=== PATIENT | male | born 1975 | race Hispanic/Latino ===

== ENCOUNTER 2016-09-20 16:53 | Inpatient (IN) | payer MEDICAID ==
[2016-09-20] MEDS ORDERED: Sodium Chloride 0.9% 1,000 ML IV STA (17:10)
--- NOTE | 2016-09-20 17:13 | ED PDOC ---
HPI: Abdomen Time Seen by Provider: 09/20/16 16:59 Chief Complaint (Nursing): Abdominal Pain Chief Complaint (Provider): Abdominal Pain History Per: Patient History/Exam Limitations: no limitations Onset/Duration Of Symptoms: Days (x5 days) Current Symptoms Are (Timing): Still Present Additional Complaint(s): 40 y/o male with a past medical history of alcohol abuse and pancreatitis who presents to the emergency department via EMS with a complaint of an abdominal pain and vomiting "black stuff" x5 days. States he rather than to get treated. Admits to drinking about 2 hours prior to arrival. Denies diarrhea. PMD: Dr. Mayra Zamora MD Past Medical History Reviewed: Historical Data, Nursing Documentation, Vital Signs Vital Signs: Last Vital Signs Temp 98.2 F 09/20/16 16:54 Pulse 100 H 09/20/16 16:54 Resp 16 09/20/16 16:54 BP 132/104 H 09/20/16 16:54 Pulse Ox 100 09/20/16 19:16 - Medical History PMH: Arthritis (as per CT results), HTN, Pancreatitis Denies: COPD, Chronic Kidney Disease - Family History Family History: States: Unknown Family Hx - Social History Alcohol: > 2 Drinks/Day - Home Medications Home Medications: Ambulatory Orders Medication Instructions Recorded Alprazolam [Xanax] 0.5 mg PO TID PRN 09/20/16 Mirtazapine [Remeron] 15 mg PO HS 09/20/16 Multivitamin [Multi-Vitamin Daily] 1 tab PO DAILY 09/20/16 - Allergies Allergies/Adverse Reactions: Allergies Allergy/AdvReac Type Severity Reaction Status Date / Time No Known Allergies Allergy Verified 01/16/15 12:38 Review of Systems ROS Statement: Except As Marked, All Systems Reviewed And Found Negative Gastrointestinal: Positive for: Vomiting ("Black stuff"), Abdominal Pain. Negative for: Diarrhea Physical Exam - Reviewed Nursing Documentation Reviewed: Yes Vital Signs Reviewed: Yes - Physical Exam Appears: Positive for: Non-toxic, No Acute Distress Head Exam: Positive for: ATRAUMATIC, NORMAL INSPECTION, NORMOCEPHALIC Skin: Positive for: Normal Color, Warm, Dry Gastrointestinal/Abdominal: Positive for: Soft, Tenderness (Epigastric ). Negative for: Normal Exam Extremity: Positive for: Normal ROM. Negative for: Pedal Edema Neurologic/Psych: Positive for: Alert, Oriented - Laboratory Results Result Diagrams: 09/20/16 17:25 09/20/16 17:25 - ECG Interpretation Of ECG: NSR @ 91, no ST-T changes. O2 Sat by Pulse Oximetry: 100 (RA) Pulse Ox Interpretation: Normal - Radiology X-Ray: Interpreted by [facility] X-Ray Interpretation: No Acute Disease Medical Decision Making Medical Decision Making: Time:17:10 Initial impression: Abdominal Pain Initial plan: --Abd & Pelvis IV Contrast CT --Alcohol Serum STAT --EKG --COMP Metabolic Panel --Drug Screen, Urine --Lipase --ED Urine Dipstick --EKG-ED --CBC w. differential --Partial Thromboplastin Time --Prothrombin Time --Sodium Chloride 1,000 ml IV 1,000 mls/hr --Urinalysis STAT --Reevaluation Time: 17:25 --Alcohol, Quantitative: 292 --Lipase levels are high: 1026 Time: 17:33 --Pantoprazole 40 mg IV Time: 18:00 --Lactated Ringer's 1,000 ml IV 1,000 mls/hr --Morphine 4 mg IV --VBG Time: 18:42 --Abdomen/pelvis CT FINDINGS: LOWER THORAX: No evidence of acute pathology at the lung bases. No evidence of pleural effusion. LIVER: Brud-is-frehwxoo hepatomegaly is again noted. Moderate diffuse low-attenuation of the liver is again noted suggestive of moderate hepatic steatosis. Interval appearance of low-attenuation lesion at the right liver lobe adjacent to gallbladder fossa measures 2.6 centimeter since the previous exam. Although this may represent focal fatty infiltration or sparing other etiology included liver mass should be excluded. GALLBLADDER AND BILE DUCTS: Distended gallbladder contains small gallstones without CT evidence of acute cholecystitis. PANCREAS: Inflammatory changes surrounding the pancreatic body and tail suggestive of acute pancreatitis. The main pancreatic duct is not dilated. SPLEEN: Unremarkable. ADRENALS: Unremarkable. No mass. KIDNEYS AND URETERS: Unremarkable. No hydronephrosis. No solid mass. VASCULATURE: Unremarkable. No aortic aneurysm. BOWEL: Unremarkable. No obstruction. No gross mural thickening. Colonic diverticulosis are again seen without evidence of diverticulitis. APPENDIX: Normal appendix. PERITONEUM: Unremarkable. No free fluid. No free air. LYMPH NODES: Unremarkable. No enlarged lymph nodes. BLADDER: Unremarkable. REPRODUCTIVE: Unremarkable. BONES: No acute fracture. OTHER FINDINGS: Inflammatory changes surrounding the pancreatic body and tail consistent with acute pancreatitis. Mildly distended gallbladder contains gallstones without CT evidence of acute cholecystitis. Moderate hepatic steatosis. Interval appearance of 2.6 centimeter lesion at the right liver lobe adjacent to the gallbladder fossa best seen on image 60 series 3. Further assessment of the liver by MRI is suggested to exclude liver mass. Otherwise no significant interval change since the previous study dated 2015. IMPRESSION: Unremarkable contrast enhanced CT of the abdomen and pelvis. Time: 18:50 --Chest Portable (RAD) Scribe Attestation: Documented by Rosy Atkins, acting as a scribe for Chio Liz MD. Provider Scribe Attestation: All medical record entries made by the Scribe were at my direction and personally dictated by me. I have reviewed the chart and agree that the record accurately reflects my personal performance of the history, physical exam, medical decision making, and the department course for this patient. I have also personally directed, reviewed, and agree with the discharge instructions and disposition. Disposition - Clinical Impression Clinical Impression: Pancreatitis, alcoholic, acute, Alcohol intoxication - Patient ED Disposition Is Patient to be Admitted: Yes - Disposition Disposition Time: 19:33 Condition: STABLE - Pt Status Changed To: Hospital Disposition Of: Inpatient - Admit Certification Admit to Inpatient:: After my assessment, the patient will require hospitalization for at least two midnights. This is because of the severity of symptoms shown, intensity of services needed, and/or the medical risk in this patient being treated as an outpatient. - POA Present On Arrival: None
[2016-09-20 17:30] LABS: BASO # 0.1 K/uL (0.0-0.2); BASO % 1.2 % (0.0-2.0); EOS # 0.1 K/uL (0.0-0.7); HEMOGLOBIN 15.4 g/dL (12.0-18.0); LYMPH # 2.9 K/uL (1.0-4.3); LYMPH % 23.5 % (20.0-40.0); MEAN CELL VOLUME 97.2 fl (80.0-94.0); MEAN CORPUSCULAR HEMOGLOBIN 34.1 pg (27.0-31.0); MEAN CORPUSCULAR HGB CONC 35.1 g/dL (33.0-37.0); MEAN PLATELET VOLUME 8.4 fl (7.2-11.7); MONO % 8.2 % (0.0-10.0); NEUT # 8.2 K/uL (1.8-7.0); NEUT % 66.1 % (50.0-75.0); NRBC % 0.1 % (0.0-0.0); RBC 4.53 Mil/uL (4.40-5.90); RED CELL DISTRIBUTION WIDTH 13.6 % (11.5-14.5); WHITE BLOOD COUNT 12.3 K/uL (4.8-10.8)
[2016-09-20 17:48] LABS: ALB/GLOB RATIO 1.1 (1.0-2.1); ALBUMIN 4.8 g/dL (3.5-5.0); ALT/SGPT 100 U/L (21-72); AST/SGOT 134 U/L (17-59); BLOOD UREA NITROGEN 6 mg/dl (9-20); CALCIUM 8.9 mg/dL (8.4-10.2); GFR AFRICAN-AMERICAN > 60; GFR NON-AFRICAN AMERICAN > 60; LIPASE 1026 U/L (23-300)
[2016-09-20] MEDS ORDERED: Sterile Water 10 ML IV ONE (17:49)
[2016-09-20] MEDS: Lactated Ringer's 1,000 ML IV SCH ×2 (18:01→23:11)
[2016-09-20] MEDS ORDERED: Morphine 4 MG/ML VIAL IV STA (18:01)
[2016-09-20 18:05] LABS: INR 1.1 (0.9-1.2); PROTHROMBIN TIME 12.2 Seconds (9.8-13.1)
[2016-09-20] MEDS ORDERED: Iohexol 300 100 ML IJ ONE (18:10)
[2016-09-20] MEDS ORDERED: Sodium Chloride 0.9% 50 ML IV ONE (18:10)
--- NOTE | 2016-09-20 19:06 | CT ---
PROCEDURE: CT Abdomen and Pelvis with contrast HISTORY: Abd pain, vomiting COMPARISON: Comparison is made to the previous study dated 11/07/2015 TECHNIQUE: Contrast dose: 95 mL of Omnipaque 300. Axial and reformatted true coronal and sagittal CT images of the abdomen and pelvis were obtained after IV contrast administration. Radiation dose: Total exam DLP = 1061.07 mGy-cm. This CT exam was performed using one or more of the following dose reduction techniques: Automated exposure control, adjustment of the mA and/or kV according to patient size, and/or use of iterative reconstruction technique. FINDINGS: LOWER THORAX: No evidence of acute pathology at the lung bases. No evidence of pleural effusion. LIVER: [id number] hepatomegaly is again noted. Moderate diffuse low-attenuation of the liver is again noted suggestive of moderate hepatic steatosis. Interval appearance of low-attenuation lesion at the right liver lobe adjacent to gallbladder fossa measures 2.6 centimeter since the previous exam. Although this may represent focal fatty infiltration or sparing other etiology included liver mass should be excluded. GALLBLADDER AND BILE DUCTS: Distended gallbladder contains small gallstones without CT evidence of acute cholecystitis. PANCREAS: Inflammatory changes surrounding the pancreatic body and tail suggestive of acute pancreatitis. The main pancreatic duct is not dilated. SPLEEN: Unremarkable. ADRENALS: Unremarkable. No mass. KIDNEYS AND URETERS: Unremarkable. No hydronephrosis. No solid mass. VASCULATURE: Unremarkable. No aortic aneurysm. BOWEL: Unremarkable. No obstruction. No gross mural thickening. Colonic diverticulosis are again seen without evidence of diverticulitis. APPENDIX: Normal appendix. PERITONEUM: Unremarkable. No free fluid. No free air. LYMPH NODES: Unremarkable. No enlarged lymph nodes. BLADDER: Unremarkable. REPRODUCTIVE: Unremarkable. BONES: No acute fracture. OTHER FINDINGS: Inflammatory changes surrounding the pancreatic body and tail consistent with acute pancreatitis. Mildly distended gallbladder contains gallstones without CT evidence of acute cholecystitis. Moderate hepatic steatosis. Interval appearance of 2.6 centimeter lesion at the right liver lobe adjacent to the gallbladder fossa best seen on image 60 series 3. Further assessment of the liver by MRI is suggested to exclude liver mass. Otherwise no significant interval change since the previous study dated 11/07/2015. IMPRESSION: Unremarkable contrast enhanced CT of the abdomen and pelvis.
[2016-09-20] MEDS ORDERED: Lactated Ringer's 1,000 ML IV SCH (19:30)
[2016-09-20 19:35] LABS: VENOUS BLOOD GAS PCO2 36 mmHg (40-60); VENOUS BLOOD GAS PO2 110 mm/Hg (30-55)
[2016-09-20 20:41] LABS: SQUAMOUS EPITHIAL 1 /hpf (0-5); URINE BILIRUBIN NEGATIVE (NEGATIVE); URINE BLOOD SMALL (NEGATIVE); URINE CLARITY CLEAR (Clear); URINE COLOR YELLOW (YELLOW); URINE GLUCOSE (UA) NEG (Normal); URINE LEUKOCYTE ESTERASE NEG Leu/uL (Negative); URINE NITRATE NEGATIVE (NEGATIVE); URINE PROTEIN NEGATIVE (NEGATIVE); URINE UROBILINOGEN 0.2-1.0 mg/dL (0.2-1.0)
[2016-09-20 21:03] LABS: BARBITURATES, UR NEGATIVE (NEGATIVE); BENZODIAZEPINES, UR NEGATIVE (NEGATIVE); OPIATES, UR POSITIVE (NEGATIVE); PHENCYCLIDINE, UR NEGATIVE (NEGATIVE)
[2016-09-20] MEDS: Morphine 4 MG/ML VIAL IVP PRN (22:57)
[2016-09-21] MEDS ORDERED: Morphine 4 MG/ML VIAL IVP SCH (01:00)
[2016-09-21 05:27] LABS: HEMOGLOBIN 14.5 g/dL (12.0-18.0); MEAN CELL VOLUME 97.4 fl (80.0-94.0); MEAN CORPUSCULAR HEMOGLOBIN 34.1 pg (27.0-31.0); RBC 4.25 Mil/uL (4.40-5.90); RED CELL DISTRIBUTION WIDTH 13.5 % (11.5-14.5); WHITE BLOOD COUNT 11.3 K/uL (4.8-10.8)
[2016-09-21 05:30] LABS: ALB/GLOB RATIO 1.2 (1.0-2.1); ALBUMIN 4.5 g/dL (3.5-5.0); ALT/SGPT 85 U/L (21-72); AMYLASE 105 U/L (30-110); AST/SGOT 112 U/L (17-59); BLOOD UREA NITROGEN 4 mg/dl (9-20); CALCIUM 8.6 mg/dL (8.4-10.2); GFR AFRICAN-AMERICAN > 60; GFR NON-AFRICAN AMERICAN > 60; HDL CHOLESTEROL 44 MG/DL (30-70); LIPASE 833 U/L (23-300)
[2016-09-21 05:40] LABS: LDL CHOLESTEROL 181 mg/dL (0-129)
[2016-09-21 05:44] LABS: T4 8.51 ug/dl (5.5-11.0)
[2016-09-21] MEDS: Morphine 4 MG/ML VIAL IVP PRN ×5 (06:48→23:53)
--- NOTE | 2016-09-21 08:11 | CARD ---
APPROVED REPORT EKG Measurement Heart [id number] <Conclusion> Normal sinus rhythm Normal ECG
[2016-09-21] MEDS: Thiamine 100 mg/ml Inj IM SCH (08:43)
--- NOTE | 2016-09-21 10:43 | RAD ---
HISTORY: Abdominal pain COMPARISON: 11/07/2015. FINDINGS: LUNGS: The lungs are well inflated and clear. PLEURA: No significant pleural effusion identified, no pneumothorax apparent. CARDIOVASCULAR: Normal. OSSEOUS STRUCTURES: No significant abnormalities. VISUALIZED UPPER ABDOMEN: Normal. OTHER FINDINGS: None. IMPRESSION: No active pulmonary disease.
[2016-09-21] MEDS ORDERED: Lactated Ringer's 1,000 ML IV SCH ×3 (12:30→21:00)
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
[2016-09-21 17:06] VITALS: BMI 37.1
[2016-09-21] MEDS: Lactated Ringer's 1,000 ML IV SCH ×2 (21:25→21:28)
[2016-09-22] MEDS ORDERED: Lactated Ringer's 1,000 ML IV SCH
[2016-09-22] MEDS: Lactated Ringer's 1,000 ML IV SCH ×7 (00:46→21:58)
[2016-09-22] MEDS: Morphine 4 MG/ML VIAL IVP PRN ×5 (04:06→23:39)
[2016-09-22 07:16] LABS: HEMOGLOBIN 14.5 g/dL (12.0-18.0); MEAN CELL VOLUME 97.8 fl (80.0-94.0); MEAN CORPUSCULAR HEMOGLOBIN 34.2 pg (27.0-31.0); RBC 4.23 Mil/uL (4.40-5.90); RED CELL DISTRIBUTION WIDTH 13.7 % (11.5-14.5); WHITE BLOOD COUNT 9.2 K/uL (4.8-10.8)
[2016-09-22 07:40] LABS: BLOOD UREA NITROGEN 5 mg/dl (9-20); CALCIUM 9.1 mg/dL (8.4-10.2); GFR AFRICAN-AMERICAN > 60; GFR NON-AFRICAN AMERICAN > 60; LIPASE 214 U/L (23-300); MAGNESIUM 1.4 MG/DL (1.6-2.3)
[2016-09-22] MEDS: Thiamine 100 mg/ml Inj IM SCH (08:36)
--- NOTE | 2016-09-22 11:46 | CP.PCM.PN ---
Subjective - Date & Time of Evaluation Date of Evaluation: 09/22/16 Time of Evaluation: 11:30 - Subjective Subjective: less pain Objective - Vital Signs/Intake and Output Vital Signs (last 24 hours): Temp Pulse Resp BP Pulse Ox 98.4 F 80 20 132/86 95 09/22/16 08:35 09/22/16 08:35 09/22/16 08:35 09/22/16 08:35 09/22/16 08:35 - Medications Medications: Current Medications Lactated Ringer's (Lactated Ringer's) 1,000 mls @ 250 mls/hr IV .Q4H MARY Lorazepam (Ativan) 1 mg IVP Q4 PRN PRN Reason: Agitation Last Admin: 09/21/16 17:06 Dose: 1 mg Morphine Sulfate (Morphine) 4 mg IVP Q3 PRN PRN Reason: Pain, moderate (4-7) Last Admin: 09/22/16 11:30 Dose: 4 mg Ondansetron HCl (Zofran Inj) 4 mg IVP Q6 PRN PRN Reason: Nausea/Vomiting Last Admin: 09/22/16 01:50 Dose: 4 mg Pantoprazole Sodium (Protonix Inj) 40 mg IVP DAILY [facility] Last Admin: 09/22/16 08:36 Dose: 40 mg Thiamine HCl (Vitamin B1 Inj) 100 mg IM DAILY [facility] Last Admin: 09/22/16 08:36 Dose: 100 mg - Labs Labs: 09/22/16 05:30 09/22/16 05:30 PT 12.2 Seconds (9.8-13.1) 09/20/16 17:25 INR 1.1 (0.9-1.2) 09/20/16 17:25 APTT 40.0 Seconds (25.6-37.1) H 09/20/16 17:25 Assessment and Plan - Assessment and Plan (Free Text) Assessment: 40 yo male with alcoholic pancreatitis fluids pain control dc planning when able
[2016-09-22] MEDS: HYDROmorphone 0.5 mg/0.5 ml ISec IVP PRN ×2 (14:35→20:18)
--- NOTE | 2016-09-22 15:29 | CT ---
PROCEDURE: CT HEAD WITHOUT CONTRAST. HISTORY: headache/ dizziness COMPARISON: Comparison is made to the previous study dated 01/16/2015 TECHNIQUE: Axial computed tomography images were obtained through the head/brain without intravenous contrast. Radiation dose: Total exam DLP = 873.8 mGy-cm. This CT exam was performed using one or more of the following dose reduction techniques: Automated exposure control, adjustment of the mA and/or kV according to patient size, and/or use of iterative reconstruction technique. FINDINGS: HEMORRHAGE: No intracranial hemorrhage. BRAIN: No mass effect or edema. No atrophy or chronic microvascular ischemic changes. VENTRICLES: Again seen is either focal [place] pilot lesion of the left lateral ventricle versus a cyst to the left of the midline seen superior and to the left of the pineal gland calcification measures 2.4 x 1.2 centimeter. No hydrocephalus. CALVARIUM: Unremarkable. PARANASAL SINUSES: Unremarkable as visualized. No significant inflammatory changes. MASTOID AIR CELLS: Unremarkable as visualized. No inflammatory changes. OTHER FINDINGS: None. IMPRESSION: No evidence of acute intracranial hemorrhage intracranial collection or midline shift. No significant interval change when compared to the previous study dated 01/16/2015. Re- demonstration of either focal dilatation of the left lateral ventricle versus less likely cystic formation to the left of the midline superior and to the left of the pineal gland which has not significantly changed since the previous exam. If clinically warranted further assessment by MRI may be obtained.
--- NOTE | 2016-09-22 15:49 | CP.PCM.PN ---
Subjective - Date & Time of Evaluation Date of Evaluation: 09/22/16 Time of Evaluation: 11:30 - Subjective Subjective: F/U Acute Pancreatitis. Abdominal pain improved, upgrade to clear diet today. Objective - Vital Signs/Intake and Output Vital Signs (last 24 hours): Temp Pulse Resp BP Pulse Ox 98.4 F 80 20 132/86 95 09/22/16 08:35 09/22/16 08:35 09/22/16 08:35 09/22/16 08:35 09/22/16 08:35 - Medications Medications: Current Medications Hydromorphone HCl (Dilaudid) 0.5 mg IVP Q4 PRN PRN Reason: Pain, severe (8-10) Stop: 09/24/16 14:18 Last Admin: 09/22/16 14:35 Dose: 0.5 mg Lactated Ringer's (Lactated Ringer's) 1,000 mls @ 250 mls/hr IV .Q4H [facility] Lactulose (Enulose) 10 gm PO DAILY PRN PRN Reason: Constipation Lorazepam (Ativan) 1 mg IVP Q4 PRN PRN Reason: Agitation Last Admin: 09/21/16 17:06 Dose: 1 mg Morphine Sulfate (Morphine) 4 mg IVP Q3 PRN PRN Reason: Pain, moderate (4-7) Last Admin: 09/22/16 11:30 Dose: 4 mg Ondansetron HCl (Zofran Inj) 4 mg IVP Q6 PRN PRN Reason: Nausea/Vomiting Last Admin: 09/22/16 14:11 Dose: 4 mg Pantoprazole Sodium (Protonix Inj) 40 mg IVP DAILY [facility] Last Admin: 09/22/16 08:36 Dose: 40 mg Thiamine HCl (Vitamin B1 Inj) 100 mg IM DAILY [facility] Last Admin: 09/22/16 08:36 Dose: 100 mg - Labs Labs: 09/22/16 05:30 09/22/16 05:30 PT 12.2 Seconds (9.8-13.1) 09/20/16 17:25 INR 1.1 (0.9-1.2) 09/20/16 17:25 APTT 40.0 Seconds (25.6-37.1) H 09/20/16 17:25 - Constitutional Appears: No Acute Distress - Head Exam Head Exam: NORMAL INSPECTION - Eye Exam Eye Exam: PERRL - ENT Exam ENT Exam: Normal Oropharynx - Neck Exam Neck Exam: Normal Inspection - Respiratory Exam Respiratory Exam: NORMAL BREATHING PATTERN - Cardiovascular Exam Cardiovascular Exam: REGULAR RHYTHM - GI/Abdominal Exam GI & Abdominal Exam: Tenderness (epigastric area), Normal Bowel Sounds - Extremities Exam Extremities Exam: Pedal Edema - Back Exam Back Exam: NORMAL INSPECTION - Neurological Exam Neurological Exam: Alert, Oriented x3. absent: Motor Sensory Deficit - Psychiatric Exam Psychiatric exam: Normal Mood - Skin Skin Exam: Normal Color, Warm Assessment and Plan (1) Pancreatitis, alcoholic, acute Status: Acute (2) Alcohol intoxication Status: Acute - Assessment and Plan (Free Text) Plan: Continue IV fluid, Dilaudid, Morphine and rest of Tx.
[2016-09-23] MEDS: Lactated Ringer's 1,000 ML IV SCH ×7 (00:11→23:25)
[2016-09-23] MEDS: HYDROmorphone 0.5 mg/0.5 ml ISec IVP PRN ×2 (02:04→06:16)
[2016-09-23 07:57] LABS: ALB/GLOB RATIO 1.1 (1.0-2.1); ALBUMIN 4.2 g/dL (3.5-5.0); ALT/SGPT 114 U/L (21-72); AST/SGOT 168 U/L (17-59); BLOOD UREA NITROGEN 7 mg/dl (9-20); CALCIUM 9.2 mg/dL (8.4-10.2); GFR AFRICAN-AMERICAN > 60; GFR NON-AFRICAN AMERICAN > 60
[2016-09-23 07:59] LABS: HEMOGLOBIN 14.2 g/dL (12.0-18.0); MEAN CELL VOLUME 98.4 fl (80.0-94.0); MEAN CORPUSCULAR HEMOGLOBIN 34.3 pg (27.0-31.0); MEAN CORPUSCULAR HGB CONC 34.8 g/dL (33.0-37.0); RBC 4.15 Mil/uL (4.40-5.90); RED CELL DISTRIBUTION WIDTH 13.4 % (11.5-14.5); WHITE BLOOD COUNT 9.5 K/uL (4.8-10.8)
[2016-09-23] MEDS: Thiamine 100 mg/ml Inj IM SCH (09:25)
[2016-09-23] MEDS: Morphine 4 MG/ML VIAL IVP PRN ×2 (09:31→15:20)
[2016-09-23] MEDS ORDERED: Lactulose 10 gm/15 ml Syrup PO PRN (11:00)
--- NOTE | 2016-09-23 12:24 | US ---
HISTORY: elevated LFT, abd pain COMPARISON: CT abdomen and pelvis with contrast performed 09/20/16 TECHNIQUE: Sonographic evaluation of the abdomen. FINDINGS: LIVER: Measures 23.6 cm in sagittal dimension. Echogenic liver may be seen in setting of hepatic parenchymal disease or fatty infiltration. No focal hepatic mass identified. The main portal vein appears patent with normal directional flow. No intrahepatic bile duct dilatation. GALLBLADDER: 5 mm gallstone, mobile. No gallbladder wall thickening. Negative sonographic Dolan's sign as assessed by the mother helper. COMMON BILE DUCT: Measures 4 mm. PANCREAS: Not well visualized ; appears somewhat hypoechoic. RIGHT KIDNEY: Measures 11.5 x 4.7 x 5.2 cm. No obstructing calculus or hydronephrosis identified. LEFT KIDNEY: Measures 12.0 x 5.2 x 4.7 cm. No obstructing calculus or hydronephrosis identified. SPLEEN: Measures approximately 11.2 cm. AORTA: Not well-visualized. IVC: Not well-visualized. OTHER FINDINGS: None. IMPRESSION: Immobile gallstone within the gallbladder. Echogenic liver may be seen in setting of hepatic parenchymal disease or fatty infiltration. The pancreas is not well visualized; appears somewhat hypoechoic. Please refer to CT abdomen and pelvis with contrast performed 09/20/16 for more detailed evaluation. The aorta and IVC are not well-visualized markedly limited secondary to bowel gas and habitus.
[2016-09-23] MEDS ORDERED: DiphenhydrAMINE 50 mg/ml Inj IVP ONE (12:45)
--- NOTE | 2016-09-23 21:39 | CP.PCM.PN ---
Subjective - Date & Time of Evaluation Date of Evaluation: 09/23/16 Time of Evaluation: 13:20 - Subjective Subjective: F/U Pancreatitis. abdominal pain improved Objective - Vital Signs/Intake and Output Vital Signs (last 24 hours): Temp Pulse Resp BP Pulse Ox 98.2 F 78 17 138/87 93 L 09/23/16 16:42 09/23/16 16:42 09/23/16 16:42 09/23/16 16:42 09/23/16 16:42 Intake and Output: 09/23/16 09/24/16 18:59 06:59 Intake Total 2000 Output Total 1200 Balance 800 - Medications Medications: Current Medications Diphenhydramine HCl (Benadryl) 25 mg PO Q8 PRN PRN Reason: Itching / Pruritus Hydromorphone HCl (Dilaudid) 0.5 mg IVP Q4 PRN PRN Reason: Pain, severe (8-10) Stop: 09/24/16 14:18 Last Admin: 09/23/16 06:16 Dose: 0.5 mg Lactated Ringer's (Lactated Ringer's) 1,000 mls @ 250 mls/hr IV .Q4H [facility] Last Admin: 09/23/16 19:32 Dose: Not Given Lactulose (Enulose) 10 gm PO DAILY PRN PRN Reason: Constipation Lorazepam (Ativan) 1 mg IVP Q4 PRN PRN Reason: Agitation Last Admin: 09/21/16 17:06 Dose: 1 mg Morphine Sulfate (Morphine) 4 mg IVP Q3 PRN PRN Reason: Pain, moderate (4-7) Last Admin: 09/23/16 15:20 Dose: 4 mg Ondansetron HCl (Zofran Inj) 4 mg IVP Q6 PRN PRN Reason: Nausea/Vomiting Last Admin: 09/22/16 14:11 Dose: 4 mg Pantoprazole Sodium (Protonix Inj) 40 mg IVP DAILY [facility] Last Admin: 09/23/16 09:25 Dose: 40 mg Thiamine HCl (Vitamin B1 Inj) 100 mg IM DAILY [facility] Last Admin: 09/23/16 09:25 Dose: 100 mg - Labs Labs: 09/23/16 05:30 09/23/16 05:30 PT 12.2 Seconds (9.8-13.1) 07/12/17 17:25 INR 1.1 (0.9-1.2) 09/20/16 17:25 APTT 40.0 Seconds (25.6-37.1) H 09/20/16 17:25 - Constitutional Appears: No Acute Distress - Head Exam Head Exam: NORMAL INSPECTION - Eye Exam Eye Exam: PERRL - ENT Exam ENT Exam: Normal Oropharynx - Neck Exam Neck Exam: Normal Inspection - Respiratory Exam Respiratory Exam: NORMAL BREATHING PATTERN - Cardiovascular Exam Cardiovascular Exam: REGULAR RHYTHM - GI/Abdominal Exam GI & Abdominal Exam: Tenderness (epigastric area, upper quadrants ,mild guarding , no rebound), Normal Bowel Sounds - Extremities Exam Extremities Exam: Pedal Edema - Back Exam Back Exam: NORMAL INSPECTION - Neurological Exam Neurological Exam: Alert, Oriented x3. absent: Motor Sensory Deficit - Psychiatric Exam Psychiatric exam: Normal Mood - Skin Skin Exam: Normal Color, Warm Assessment and Plan (1) Pancreatitis, alcoholic, acute Status: Acute (2) Alcohol intoxication Status: Acute - Assessment and Plan (Free Text) Plan: Continue Morphine , IVF , Thiamine and rest of treatment
[2016-09-24] MEDS: HYDROmorphone 0.5 mg/0.5 ml ISec IVP PRN ×3 (02:53→14:45)
[2016-09-24] MEDS: Lactated Ringer's 1,000 ML IV SCH ×5 (04:24→20:25)
[2016-09-24] MEDS: Thiamine 100 mg/ml Inj IM SCH (08:19)
--- NOTE | 2016-09-24 16:25 | CP.PCM.PN ---
Subjective - Date & Time of Evaluation Date of Evaluation: 09/24/16 Time of Evaluation: 15:20 - Subjective Subjective: F/U Pancreatitis. Abdominal pain improved , still requesting pain medication Objective - Vital Signs/Intake and Output Vital Signs (last 24 hours): Temp Pulse Resp BP Pulse Ox 98.0 F 75 17 132/87 95 09/24/16 15:40 09/24/16 15:40 09/24/16 15:40 09/24/16 15:40 09/24/16 15:40 - Medications Medications: Current Medications Diphenhydramine HCl (Benadryl) 25 mg PO Q8 PRN PRN Reason: Itching / Pruritus Hydromorphone HCl (Dilaudid) 0.5 mg IVP Q4 PRN PRN Reason: Pain, severe (8-10) Last Admin: 09/24/16 14:45 Dose: 0.5 mg Lactated Ringer's (Lactated Ringer's) 1,000 mls @ 250 mls/hr IV .Q4H [facility] Last Admin: 09/24/16 15:30 Dose: 250 mls/hr Lactulose (Enulose) 10 gm PO DAILY PRN PRN Reason: Constipation Lorazepam (Ativan) 1 mg IVP Q4 PRN PRN Reason: Agitation Last Admin: 09/24/16 04:16 Dose: 1 mg Morphine Sulfate (Morphine) 4 mg IVP Q3 PRN PRN Reason: Pain, moderate (4-7) Last Admin: 09/23/16 15:20 Dose: 4 mg Ondansetron HCl (Zofran Inj) 4 mg IVP Q6 PRN PRN Reason: Nausea/Vomiting Last Admin: 09/22/16 14:11 Dose: 4 mg Pantoprazole Sodium (Protonix Inj) 40 mg IVP DAILY [facility] Last Admin: 09/24/16 08:19 Dose: 40 mg Thiamine HCl (Vitamin B1 Inj) 100 mg IM DAILY [facility] Last Admin: 09/24/16 08:19 Dose: 100 mg - Labs Labs: 09/23/16 05:30 09/23/16 05:30 PT 12.2 Seconds (9.8-13.1) 09/20/16 17:25 INR 1.1 (0.9-1.2) 09/20/16 17:25 APTT 40.0 Seconds (25.6-37.1) H 09/20/16 17:25 - Constitutional Appears: No Acute Distress - Head Exam Head Exam: NORMAL INSPECTION - Eye Exam Eye Exam: PERRL - ENT Exam ENT Exam: Normal Oropharynx - Neck Exam Neck Exam: Normal Inspection - Respiratory Exam Respiratory Exam: NORMAL BREATHING PATTERN - Cardiovascular Exam Cardiovascular Exam: REGULAR RHYTHM - GI/Abdominal Exam GI & Abdominal Exam: Soft, Tenderness (minimal in Epigastric area, upper qudrants ), Normal Bowel Sounds. absent: Guarding, Rebound - Extremities Exam Extremities Exam: Pedal Edema - Back Exam Back Exam: NORMAL INSPECTION - Neurological Exam Neurological Exam: Alert, Oriented x3. absent: Motor Sensory Deficit - Psychiatric Exam Psychiatric exam: Normal Mood - Skin Skin Exam: Warm Assessment and Plan (1) Pancreatitis, alcoholic, acute Status: Acute (2) Alcohol intoxication Status: Acute - Assessment and Plan (Free Text) Plan: full liquid diet, increase in am to soft diet as tolerated , continue Mophine and rest of treatment
[2016-09-24] MEDS: Morphine 4 MG/ML VIAL IVP PRN (18:48)
[2016-09-25] MEDS: HYDROmorphone 0.5 mg/0.5 ml ISec IVP PRN ×3 (01:31→10:57)
[2016-09-25] MEDS: Lactated Ringer's 1,000 ML IV SCH ×7 (04:15→23:43)
[2016-09-25] MEDS: Thiamine 100 mg/ml Inj IM SCH (08:31)
--- NOTE | 2016-09-25 14:04 | CP.PCM.PN ---
Subjective - Date & Time of Evaluation Date of Evaluation: 09/24/16 Time of Evaluation: 15:00 - Subjective Subjective: doing better Objective - Vital Signs/Intake and Output Vital Signs (last 24 hours): Temp Pulse Resp BP Pulse Ox 98.5 F 69 18 129/86 97 09/25/16 07:48 09/25/16 07:48 09/25/16 07:48 09/25/16 07:48 09/25/16 07:48 - Medications Medications: Current Medications Diphenhydramine HCl (Benadryl) 25 mg PO Q8 PRN PRN Reason: Itching / Pruritus Lactated Ringer's (Lactated Ringer's) 1,000 mls @ 250 mls/hr IV .Q4H [facility] Last Admin: 09/25/16 13:18 Dose: Not Given Lactulose (Enulose) 10 gm PO DAILY PRN PRN Reason: Constipation Lorazepam (Ativan) 1 mg IVP Q4 PRN PRN Reason: Agitation Last Admin: 09/25/16 02:59 Dose: 1 mg Ondansetron HCl (Zofran Inj) 4 mg IVP Q6 PRN PRN Reason: Nausea/Vomiting Last Admin: 09/22/16 14:11 Dose: 4 mg Oxycodone/Acetaminophen (Percocet 5/325 Mg Tab) 1 tab PO Q4 PRN PRN Reason: Pain, moderate (4-7) Stop: 09/28/16 12:45 Pantoprazole Sodium (Protonix Ec Tab) 40 mg PO DAILY [facility] Thiamine HCl (Vitamin B1 Tab) 100 mg PO DAILY [facility] - Labs Labs: 09/23/16 05:30 09/23/16 05:30 PT 12.2 Seconds (9.8-13.1) 09/20/16 17:25 INR 1.1 (0.9-1.2) 09/20/16 17:25 APTT 40.0 Seconds (25.6-37.1) H 09/20/16 17:25 - GI/Abdominal Exam GI & Abdominal Exam: Soft, Normal Bowel Sounds Assessment and Plan - Assessment and Plan (Free Text) Assessment: 40 yo male with etoh pancreatitis doing well dc planning
--- NOTE | 2016-09-25 14:05 | CP.PCM.PN ---
Subjective - Date & Time of Evaluation Date of Evaluation: 09/25/16 Time of Evaluation: 13:00 - Subjective Subjective: doing well Objective - Vital Signs/Intake and Output Vital Signs (last 24 hours): Temp Pulse Resp BP Pulse Ox 98.5 F 69 18 129/86 97 09/25/16 07:48 09/25/16 07:48 09/25/16 07:48 09/25/16 07:48 09/25/16 07:48 - Medications Medications: Current Medications Diphenhydramine HCl (Benadryl) 25 mg PO Q8 PRN PRN Reason: Itching / Pruritus Lactated Ringer's (Lactated Ringer's) 1,000 mls @ 250 mls/hr IV .Q4H [facility] Last Admin: 09/25/16 13:18 Dose: Not Given Lactulose (Enulose) 10 gm PO DAILY PRN PRN Reason: Constipation Lorazepam (Ativan) 1 mg IVP Q4 PRN PRN Reason: Agitation Last Admin: 09/25/16 02:59 Dose: 1 mg Ondansetron HCl (Zofran Inj) 4 mg IVP Q6 PRN PRN Reason: Nausea/Vomiting Last Admin: 09/22/16 14:11 Dose: 4 mg Oxycodone/Acetaminophen (Percocet 5/325 Mg Tab) 1 tab PO Q4 PRN PRN Reason: Pain, moderate (4-7) Stop: 09/28/16 12:45 Pantoprazole Sodium (Protonix Ec Tab) 40 mg PO DAILY [facility] Thiamine HCl (Vitamin B1 Tab) 100 mg PO DAILY [facility] - Labs Labs: 09/23/16 05:30 09/23/16 05:30 PT 12.2 Seconds (9.8-13.1) 09/20/16 17:25 INR 1.1 (0.9-1.2) 09/20/16 17:25 APTT 40.0 Seconds (25.6-37.1) H 09/20/16 17:25 - GI/Abdominal Exam GI & Abdominal Exam: Soft, Normal Bowel Sounds Assessment and Plan - Assessment and Plan (Free Text) Assessment: 40 yo male with etoh pancreatitis doing well dc planning
[2016-09-25] MEDS: Oxycodone/Acetaminophen 5/325 mg Tab PO PRN ×3 (14:07→23:46)
--- NOTE | 2016-09-25 16:36 | CP.PCM.PN ---
Subjective - Date & Time of Evaluation Date of Evaluation: 09/25/16 Time of Evaluation: 12:40 - Subjective Subjective: F/U Pancreatitis. Abdominal pain improved, c/o of shakiness last night, feels may have alcohol withdrawal symptoms. Objective - Vital Signs/Intake and Output Vital Signs (last 24 hours): Temp Pulse Resp BP Pulse Ox 98.7 F 62 18 120/79 97 09/25/16 16:07 09/25/16 16:07 09/25/16 16:07 09/25/16 16:07 09/25/16 16:07 - Medications Medications: Current Medications Chlordiazepoxide (Librium) 25 mg PO Q8 PRN PRN Reason: withdrawal Diphenhydramine HCl (Benadryl) 25 mg PO Q8 PRN PRN Reason: Itching / Pruritus Lactated Ringer's (Lactated Ringer's) 1,000 mls @ 250 mls/hr IV .Q4H [facility] Last Admin: 09/25/16 16:23 Dose: Not Given Lactulose (Enulose) 10 gm PO DAILY PRN PRN Reason: Constipation Lorazepam (Ativan) 1 mg IVP Q4 PRN PRN Reason: Agitation Last Admin: 09/25/16 02:59 Dose: 1 mg Ondansetron HCl (Zofran Inj) 4 mg IVP Q6 PRN PRN Reason: Nausea/Vomiting Last Admin: 09/22/16 14:11 Dose: 4 mg Oxycodone/Acetaminophen (Percocet 5/325 Mg Tab) 1 tab PO Q4 PRN PRN Reason: Pain, moderate (4-7) Stop: 09/28/16 12:45 Last Admin: 09/25/16 14:07 Dose: 1 tab Pantoprazole Sodium (Protonix Ec Tab) 40 mg PO DAILY [facility] Thiamine HCl (Vitamin B1 Tab) 100 mg PO DAILY [facility] - Labs Labs: 09/23/16 05:30 09/23/16 05:30 PT 12.2 Seconds (9.8-13.1) 09/20/16 17:25 INR 1.1 (0.9-1.2) 09/20/16 17:25 APTT 40.0 Seconds (25.6-37.1) H 09/20/16 17:25 - Constitutional Appears: No Acute Distress - Head Exam Head Exam: NORMAL INSPECTION - Eye Exam Eye Exam: PERRL - ENT Exam ENT Exam: Normal Oropharynx - Neck Exam Neck Exam: Normal Inspection - Respiratory Exam Respiratory Exam: NORMAL BREATHING PATTERN - Cardiovascular Exam Cardiovascular Exam: REGULAR RHYTHM - GI/Abdominal Exam GI & Abdominal Exam: Soft, Normal Bowel Sounds. absent: Guarding, Tenderness, Rebound Additional comments: Mild epigastric discomfort. - Extremities Exam Extremities Exam: Pedal Edema - Back Exam Back Exam: NORMAL INSPECTION - Neurological Exam Neurological Exam: Alert, Oriented x3. absent: Motor Sensory Deficit - Psychiatric Exam Psychiatric exam: Normal Mood - Skin Skin Exam: Normal Color, Warm Assessment and Plan (1) Pancreatitis, alcoholic, acute Status: Acute (2) Alcohol intoxication Status: Acute - Assessment and Plan (Free Text) Plan: Continue Librium, Percocet po and rest of Tx.
[2016-09-26] MEDS: Lactated Ringer's 1,000 ML IV SCH (03:43)
[2016-09-26] MEDS: Oxycodone/Acetaminophen 5/325 mg Tab PO PRN ×2 (03:53→08:26)
--- NOTE | 2016-09-26 06:58 | CON ---
DATE: 09/21/2016 REASON FOR CONSULTATION: Alcoholic pancreatitis. HISTORY OF PRESENT ILLNESS: This is a 40-year-old male, who was basically drinking, comes in today with pain and discomfort, pancreatitis in the past secondary to alcohol, feels better at this point, lying in bed comfortably, in no apparent distress. PAST MEDICAL HISTORY: As above. PAST SURGICAL HISTORY: As above. MEDICATIONS: Have been reviewed. REVIEW OF SYSTEMS: All other systems have been reviewed, negative other than as stated in HPI. PHYSICAL EXAMINATION: VITAL SIGNS: During hospital grossly unremarkable. GENERAL: Well-nourished and pleasant, middle-aged male lying comfortably in the bed. HEENT: Head is normocephalic and atraumatic. Eyes; pupils are equal and reactive of light. No conjunctival pallor or icterus. NECK: Supple. Normal range of motion. No lymphadenopathy appreciated. LUNGS: Coarse breath sounds bilaterally. HEART: S1 and S2. Regular rate and rhythm. No murmurs appreciated. ABDOMEN: Soft, some discomfort. Bowel sounds present. AND RECTAL: Exam deferred. EXTREMITIES: *------* SKIN: Warm and dry. NEUROLOGIC: Alert and oriented x3. LABORATORY DATA: WBC is 11.3, hemoglobin 14.5. Lipase was 1026, now 833. AST and ALT 112/85. Bilirubin is 1.3. Albumin *------*. ASSESSMENT AND PLAN: This is a 40-year-old male with alcoholic pancreatitis. Pain control, aggressive fluids, Zofran for nausea, PPI, and advance diet as tolerated. Thank you for the consult. Tato Martnis MD/ PhD cc: Dr. Murdock
[2016-09-26 07:06] LABS: BASO # 0.1 K/uL (0.0-0.2); BASO % 1.2 % (0.0-2.0); EOS # 0.2 K/uL (0.0-0.7); EOS % 2.4 % (0.0-4.0); HEMOGLOBIN 14.6 g/dL (12.0-18.0); LYMPH # 2.2 K/uL (1.0-4.3); LYMPH % 23.1 % (20.0-40.0); MEAN CELL VOLUME 99.9 fl (80.0-94.0); MEAN CORPUSCULAR HEMOGLOBIN 34.3 pg (27.0-31.0); MEAN CORPUSCULAR HGB CONC 34.3 g/dL (33.0-37.0); MEAN PLATELET VOLUME 8.3 fl (7.2-11.7); MONO # 1.2 K/uL (0.0-0.8); MONO % 12.7 % (0.0-10.0); NEUT # 5.8 K/uL (1.8-7.0); NEUT % 60.6 % (50.0-75.0); RBC 4.26 Mil/uL (4.40-5.90); RED CELL DISTRIBUTION WIDTH 13.4 % (11.5-14.5); WHITE BLOOD COUNT 9.6 K/uL (4.8-10.8)
[2016-09-26 07:09] LABS: ALB/GLOB RATIO 1.1 (1.0-2.1); ALBUMIN 4.1 g/dL (3.5-5.0); ALT/SGPT 144 U/L (21-72); AST/SGOT 159 U/L (17-59); BLOOD UREA NITROGEN 10 mg/dl (9-20); CALCIUM 8.8 mg/dL (8.4-10.2); GFR AFRICAN-AMERICAN > 60; GFR NON-AFRICAN AMERICAN > 60; LIPASE 69 U/L (23-300)
[2016-09-26 07:48] VITALS: BP 125/85; PULSE 78; RESP 20; TEMP 99.3; O2SAT 99
[2016-09-26] MEDS ORDERED: Pantoprazole 40 mg EC Tab PO SCH (09:00)
--- NOTE | 2016-09-26 14:27 | CP.PCM.PN ---
Subjective - Date & Time of Evaluation Date of Evaluation: 09/26/16 Time of Evaluation: 12:20 - Subjective Subjective: F/U Pancreatitis. No A/D, Abdominal pain improved. Objective - Vital Signs/Intake and Output Vital Signs (last 24 hours): Temp Pulse Resp BP Pulse Ox 99.3 F 78 20 125/85 99 09/26/16 07:47 09/26/16 07:47 09/26/16 07:47 09/26/16 07:47 09/26/16 07:47 - Labs Labs: 09/26/16 05:35 09/26/16 05:35 PT 12.2 Seconds (9.8-13.1) 09/20/16 17:25 INR 1.1 (0.9-1.2) 09/20/16 17:25 APTT 40.0 Seconds (25.6-37.1) H 09/20/16 17:25 - Constitutional Appears: No Acute Distress - Head Exam Head Exam: NORMAL INSPECTION - Eye Exam Eye Exam: PERRL - ENT Exam ENT Exam: Normal Oropharynx - Neck Exam Neck Exam: Normal Inspection - Respiratory Exam Respiratory Exam: NORMAL BREATHING PATTERN - Cardiovascular Exam Cardiovascular Exam: REGULAR RHYTHM - GI/Abdominal Exam GI & Abdominal Exam: Normal Bowel Sounds. absent: Guarding, Tenderness, Rebound Additional comments: Minimal epigastric discomfort. - Extremities Exam Extremities Exam: Normal Inspection - Back Exam Back Exam: NORMAL INSPECTION - Neurological Exam Neurological Exam: Alert, Oriented x3. absent: Motor Sensory Deficit - Psychiatric Exam Psychiatric exam: Normal Mood - Skin Skin Exam: Normal Color, Warm Assessment and Plan (1) Pancreatitis, alcoholic, acute Assessment & Plan: Improved. Status: Acute (2) Alcohol intoxication Status: Acute - Assessment and Plan (Free Text) Plan: Pt improved and stable to be discharged, see instruction medication sheet, f/u PMD in a week.
[2016-09-26] MEDS ORDERED: Simethicone 80 mg Chewtab PO SCH ×3 (18:30→18:45)
== END 2016-09-26 14:08 | disposition home or self-care (01) | DRG 204 ==
LOC: H.ER 16:53 → H.ERHOLD 19:31 → H.MEDSURG1 20:54
PROVIDERS: ADMIT Internal Medicine Pulmonary Disease; ATTEND Internal Medicine Pulmonary Disease
DX: K85.20 Alcohol induced acute pancreatitis without necrosis or infection (principal); I10 Essential (primary) hypertension; F10.229 Alcohol dependence with intoxication, unspecified; J45.909 Unspecified asthma, uncomplicated; K86.1 Other chronic pancreatitis; F32.9 Major depressive disorder, single episode, unspecified; F41.9 Anxiety disorder, unspecified; Z87.81 Personal history of (healed) traumatic fracture; G40.509 Epileptic seizures related to external causes, not intractable, without status epilepticus

== ENCOUNTER 2017-07-27 11:32 | Inpatient (IN) | payer MEDICAID ==
[2017-07-27 11:32] VITALS: BMI 37.1
[2017-07-27] MEDS: Lactated Ringer's 1,000 ML IV SCH ×4 (12:17→15:09)
[2017-07-27 12:38] LABS: BASO # 0.1 K/uL (0.0-0.2); BASO % 0.9 % (0.0-2.0); EOS # 0.1 K/uL (0.0-0.7); EOS % 0.6 % (0.0-4.0); HEMOGLOBIN 15.9 g/dL (12.0-18.0); LYMPH # 2.8 K/uL (1.0-4.3); LYMPH % 20.3 % (20.0-40.0); MEAN CELL VOLUME 98.2 fl (80.0-94.0); MEAN CORPUSCULAR HEMOGLOBIN 34.5 pg (27.0-31.0); MEAN CORPUSCULAR HGB CONC 35.2 g/dL (33.0-37.0); MEAN PLATELET VOLUME 8.9 fl (7.2-11.7); MONO # 1.4 K/uL (0.0-0.8); MONO % 10.2 % (0.0-10.0); NEUT # 9.5 K/uL (1.8-7.0); NRBC % 0.1 % (0.0-0.0); RBC 4.59 Mil/uL (4.40-5.90); RED CELL DISTRIBUTION WIDTH 13.7 % (11.5-14.5)
[2017-07-27 12:45] LABS: VENOUS BLOOD GAS BASE EXCESS -1.2 mmol/L (0.0-2.0); VENOUS BLOOD GAS PCO2 39 mmHg (40-60); VENOUS BLOOD GAS PO2 63 mm/Hg (30-55); VENOUS BLOOD PH 7.39 (7.32-7.43)
[2017-07-27 12:47] LABS: ALB/GLOB RATIO 1.1 (1.0-2.1); ALBUMIN 4.5 g/dL (3.5-5.0); ALT/SGPT 242 U/L (21-72); AST/SGOT 190 U/L (17-59); BLOOD UREA NITROGEN 9 mg/dl (9-20); GFR AFRICAN-AMERICAN > 60; GFR NON-AFRICAN AMERICAN > 60
[2017-07-27 12:54] LABS: LIPASE 3530 U/L (23-300)
--- NOTE | 2017-07-27 13:52 | ED PDOC ---
HPI: Abdomen Time Seen by Provider: 07/27/17 11:55 Chief Complaint (Nursing): Abdominal Pain Chief Complaint (Provider): Abdominal pain, radiating to the back History Per: Patient History/Exam Limitations: no limitations Onset/Duration Of Symptoms: Days Outside of [place] travel?: No Additional Complaint(s): 41 yo male with history of pancreatitis presents with abdominal pain radiating to the back. PT denies fever/chills. PT states he is also nauseous. PT states this is similar to previous episode of pancreatitis. PT states that he does not know why he began to get pancreatitis. Past Medical History Reviewed: Historical Data, Nursing Documentation, Vital Signs Vital Signs: Last Vital Signs Temp 98.9 F 08/01/17 15:56 Pulse 59 L 08/01/17 15:56 Resp 18 08/01/17 15:56 BP 149/92 H 08/01/17 15:56 Pulse Ox 95 08/01/17 15:56 - Medical History PMH: Anxiety, Arthritis (as per CT results), Asthma (pt reports hx. Asthna, no meds), Fractures (L shoulder Fx), HTN, Pancreatitis Denies: COPD, HIV, Chronic Kidney Disease - Surgical History Surgical History: No Surg Hx - Family History Family History: States: Unknown Family Hx - Living Arrangements Living Arrangements: Other - Social History Current smoker - smoking cessation education provided: No Alcohol: Occasional Drugs: Denies - Home Medications Home Medications: Ambulatory Orders Medication Instructions Recorded Multivitamin [Multi-Vitamin Daily] 1 tab PO DAILY 09/20/16 - Allergies Allergies/Adverse Reactions: Allergies Allergy/AdvReac Type Severity Reaction Status Date / Time magnesium Allergy Mild RASH Verified 09/23/16 12:01 cat dander Allergy RASH Verified 07/27/17 11:54 liquid tylenol Allergy RASH Uncoded 07/27/17 11:54 seafood Allergy RASH Uncoded 07/27/17 11:54 Review of Systems ROS Statement: Except As Marked, All Systems Reviewed And Found Negative Constitutional: Negative for: Fever, Chills Gastrointestinal: Positive for: Nausea, Vomiting, Abdominal Pain. Negative for : Diarrhea, Melena Physical Exam - Reviewed Nursing Documentation Reviewed: Yes Vital Signs Reviewed: Yes - Physical Exam Appears: Positive for: Well, Non-toxic, No Acute Distress Head Exam: Positive for: ATRAUMATIC, NORMAL INSPECTION, NORMOCEPHALIC Skin: Positive for: Normal Color, Warm, DRY Eye Exam: Positive for: Normal appearance ENT: Positive for: Normal ENT Inspection Neck: Positive for: Normal, Painless ROM Cardiovascular/Chest: Positive for: Regular Rate, Rhythm Respiratory: Positive for: Normal Breath Sounds. Negative for: Accessory Muscle Use, Respiratory Distress Gastrointestinal/Abdominal: Positive for: Soft, Tenderness (Epigastric area ). Negative for: Normal Exam Back: Positive for: Normal Inspection Extremity: Positive for: Normal ROM Neurologic/Psych: Positive for: Alert, Oriented - Laboratory Results Result Diagrams: 07/31/17 04:00 07/31/17 04:00 - ECG O2 Sat by Pulse Oximetry: 100 Medical Decision Making Medical Decision Making: Admission to M/S. Discussed with Dr. Campbell for admission. Disposition - Clinical Impression Clinical Impression: Acute pancreatitis - Patient ED Disposition Is Patient to be Admitted: Yes - Disposition Disposition Time: 13:31 Condition: STABLE
[2017-07-27] MEDS: HYDROmorphone 0.5 mg/0.5 ml ISec IVP PRN ×2 (15:42→21:59)
[2017-07-27] MEDS ORDERED: HYDROmorphone 0.5 mg/0.5 ml ISec ONE (15:42)
[2017-07-27] MEDS ORDERED: Iohexol 300 100 ML IJ ONE (16:14)
[2017-07-27] MEDS ORDERED: Sodium Chloride 0.9% 50 ML IV ONE (16:15)
--- NOTE | 2017-07-27 16:52 | RAD ---
HISTORY: abdominal pain, admission COMPARISON: No prior. TECHNIQUE: Chest PA and lateral FINDINGS: LUNGS: No active pulmonary disease. PLEURA: No significant pleural effusion identified. No pneumothorax apparent. CARDIOVASCULAR: Normal. OSSEOUS STRUCTURES: No significant abnormalities. VISUALIZED UPPER ABDOMEN: Normal. OTHER FINDINGS: None. IMPRESSION: No active disease.
--- NOTE | 2017-07-27 17:00 | CT ---
PROCEDURE: CT Abdomen and Pelvis with contrast HISTORY: acute pancreatitis COMPARISON: Abdomen pelvis CT with contrast 11/07/2015. TECHNIQUE: Following the intravenous administration of iodinated contrast material, a CT examination of the abdomen and pelvis performed from the domes of the diaphragms to the symphysis pubis with reformatted datasets provided not only axial but also sagittal and coronal planes. Oral contrast was not administered as per referring physician request. Contrast dose: Omnipaque 300, 95 cc Radiation dose: Total exam DLP = 991.66 mGy-cm. This CT exam was performed using one or more of the following dose reduction techniques: Automated exposure control, adjustment of the mA and/or kV according to patient size, and/or use of iterative reconstruction technique. FINDINGS: LOWER THORAX: Unremarkable. LIVER: Hepatic steatosis is again seen diffusely though not as severely involved as previously shown on 11/07/2015. No discrete interval hepatic mass or intrahepatic biliary dilatation. Liver volume appears more normal in size without nodular periphery to suggest definite cirrhosis. GALLBLADDER AND BILE DUCTS: Gallbladder is distended but thin and smooth walled with solitary calculus identified at the neck. No pericholecystic fluid collection. PANCREAS: There is diffuse peripancreatic reactive change and trace fluid in a pattern compatible with the clinical diagnosis of pancreatitis. No pseudocyst formation or definitive pancreatic necrosis identified at this time. No obvious pancreatic duct dilatation appreciated. SPLEEN: Unremarkable. ADRENALS: Unremarkable. No mass. KIDNEYS AND URETERS: Unremarkable. No hydronephrosis. No solid mass. VASCULATURE: Unremarkable. No aortic aneurysm. BOWEL: The stomach is collapsed and poorly evaluated. No bowel obstruction is appreciated. Left colonic diverticular changes are identified without diverticulitis. APPENDIX: Normal appendix. PERITONEUM: Unremarkable. No free fluid. No free air. LYMPH NODES: Unremarkable. No enlarged lymph nodes. BLADDER: A 3 mm calculus identified at the left urinary bladder base with the bladder distended and otherwise unremarkable appearing. REPRODUCTIVE: Unremarkable. BONES: No acute fracture. OTHER FINDINGS: None. IMPRESSION: 1. Diffuse peripancreatic reaction and minimal surrounding fluid are compatible with the clinical diagnosis of pancreatitis. Recurrent as compared prior abdomen and pelvis CT 11/07/2015. No definite pancreatic necrosis or pseudocyst formation. Limited cholelithiasis is seen in the gallbladder which is distended. No prominent dilatation of the common bile or pancreatic duct. 2. Hepatic steatosis reiterated though less prominent than previously shown. 3. Left colonic diverticulosis without diverticulitis. 4. 3 mm calculus seen in the and left urinary bladder lumen at the base.
[2017-07-27] MEDS: Sodium Chloride 0.9% 1,000 ML IV SCH (17:47)
[2017-07-27 20:28] LABS: SQUAMOUS EPITHIAL 1 /hpf (0-5); URINE BACTERIA RARE (<OCC); URINE BILIRUBIN NEGATIVE (NEGATIVE); URINE CLARITY SLIGHTY-CLOUDY (Clear); URINE COLOR AMBER (YELLOW); URINE GLUCOSE (UA) NEG (Normal); URINE LEUKOCYTE ESTERASE TRACE Leu/uL (Negative); URINE PROTEIN 30 mg/dL (NEGATIVE); URINE UROBILINOGEN 0.2-1.0 mg/dL (0.2-1.0)
[2017-07-27 20:33] LABS: URINE BLOOD TRACE (NEGATIVE)
[2017-07-28] MEDS: Sodium Chloride 0.9% 1,000 ML IV SCH ×4 (01:39→22:15)
[2017-07-28] MEDS: HYDROmorphone 0.5 mg/0.5 ml ISec IVP PRN ×4 (05:30→23:59)
[2017-07-28] MEDS: metroNIDAZOLE 500mg/100ml NS 100 ML IVPB SCH ×2 (11:47→16:34)
[2017-07-28] MEDS: Ciprofloxacin 400mg/200ml D5W 400 MG/200 ML BAG IVPB SCH ×2 (11:48→20:14)
--- NOTE | 2017-07-28 13:04 | HP ---
CHIEF COMPLAINT: Abdominal pain. HISTORY OF PRESENT ILLNESS: This is a 41-year-old male with history of pancreatitis in the past who was having abdominal pain, radiating to back so the patient was brought to emergency room and was admitted for further management. REVIEW OF SYSTEMS: Positive for abdominal pain. Review of systems otherwise is negative for headache, dizziness, syncope, loss of consciousness, chest pain, shortness of breath, nausea, vomiting, diarrhea, constipation, fever, chills, any new joint or extremity pain. Review of systems of all other organ system is unremarkable. PAST MEDICAL HISTORY: Significant for hypertension, anxiety, arthritis, with history of pancreatitis in the past, bronchial asthma, and shoulder fracture. PAST SURGICAL HISTORY: Remarkable for shoulder fracture. PERSONAL HISTORY: The patient is currently nonsmoker and nondrinker. No substance abuse. MEDICATIONS: The patient is on multivitamin only. ALLERGIES: THE PATIENT IS ALLERGIC TO MAGNESIUM, TYLENOL, AND SEAFOOD. FAMILY HISTORY: Noncontributory. PHYSICAL EXAMINATION: GENERAL: A well-built and well-nourished obese male, in no acute distress, but in discomfort due to pain. VITAL SIGNS: Temperature 98, pulse 114, respirations 20, and blood pressure 169/92. HEENT: Pupils reacting to light. No JVD. No thyromegaly. No lymphadenopathy. No nystagmus. Normocephalic and atraumatic skull. HEART: S1 and S2, normal and regular. No significant murmur, gallop or rub is heard. The patient is tachycardic. LUNGS: Shows good bilateral air exchange. No rales or rhonchi. ABDOMEN: The patient has diffuse tenderness mainly on epigastrium, but no sign of acute abdomen. No guarding. No rigidity. Bowel sounds are plus and normal. EXTREMITIES: No calf swelling. No tenderness. No acute ischemia. CENTRAL NERVOUS SYSTEM: The patient is in discomfort, but there is no sign of any acute gross focal motor or sensory neurological deficits. DIAGNOSTIC DATA: Alcohol level is 159. Urinalysis is unremarkable. Lipase level is . Troponin levels are negative. AST is 190, ALT is 242, and alkaline phosphatase is 127. Sodium 144, potassium 3.7, chloride 104, bicarb 18, BUN 9, and creatinine 0.6. Lactic acid level is 2.6. WBC 14, hemoglobin 15.9, hematocrit 45.1, and platelets 222,000. Chest x-ray is clear and abdominal CAT scan shows diffuse pancreatitis, fatty liver,diverticulosis, and nephrolithiasis. ADMITTING IMPRESSION: Acute pancreatitis, alcohol intoxication, hypertension, obesity with body mass of index of 29.5, questionable sepsis, nephrolithiasis, diverticulosis, and fatty liver. PLAN: Plan as ordered. Leonel Campbell MD
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
[2017-07-28 16:07] LABS: BASO # 0.1 K/uL (0.0-0.2); BASO % 0.6 % (0.0-2.0); EOS % 0.2 % (0.0-4.0); HEMOGLOBIN 14.7 g/dL (12.0-18.0); LYMPH # 1.7 K/uL (1.0-4.3); LYMPH % 11.7 % (20.0-40.0); MEAN CELL VOLUME 97.1 fl (80.0-94.0); MEAN CORPUSCULAR HEMOGLOBIN 34.5 pg (27.0-31.0); MEAN CORPUSCULAR HGB CONC 35.6 g/dL (33.0-37.0); MEAN PLATELET VOLUME 8.4 fl (7.2-11.7); MONO # 1.3 K/uL (0.0-0.8); MONO % 9.5 % (0.0-10.0); RBC 4.24 Mil/uL (4.40-5.90); RED CELL DISTRIBUTION WIDTH 13.5 % (11.5-14.5); WHITE BLOOD COUNT 14.1 K/uL (4.8-10.8)
[2017-07-28 16:18] LABS: ALBUMIN 3.7 g/dL (3.5-5.0); ALT/SGPT 130 U/L (21-72); AST/SGOT 72 U/L (17-59); BLOOD UREA NITROGEN 8 mg/dl (9-20); CALCIUM 8.1 mg/dL (8.4-10.2); GFR AFRICAN-AMERICAN > 60; GFR NON-AFRICAN AMERICAN > 60
[2017-07-28] MEDS ORDERED: Potassium Chloride 20 mEq ER Tab PO ONE (16:27)
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
[2017-07-28] MEDS ORDERED: Multivitamin (MVI) 10 ML, Thiamine 100 MG, Folic Acid 1 MG in Dextrose 5%/0.45% NS 1,00... IV ONE (17:33)
[2017-07-28] MEDS: Lactated Ringer's 1,000 ML IV SCH (22:15)
[2017-07-29] MEDS: metroNIDAZOLE 500mg/100ml NS 100 ML IVPB SCH ×3 (00:20→16:05)
[2017-07-29] MEDS: Lactated Ringer's 1,000 ML IV SCH ×5 (02:25→21:57)
[2017-07-29] MEDS: HYDROmorphone 0.5 mg/0.5 ml ISec IVP PRN ×3 (06:25→18:36)
[2017-07-29 07:38] LABS: HEMOGLOBIN 14.5 g/dL (12.0-18.0); MEAN CELL VOLUME 98.4 fl (80.0-94.0); MEAN CORPUSCULAR HEMOGLOBIN 34.5 pg (27.0-31.0); MEAN CORPUSCULAR HGB CONC 35.1 g/dL (33.0-37.0); RBC 4.2 Mil/uL (4.40-5.90); RED CELL DISTRIBUTION WIDTH 13.4 % (11.5-14.5); WHITE BLOOD COUNT 13.1 K/uL (4.8-10.8)
[2017-07-29 07:46] LABS: ALBUMIN 3.6 g/dL (3.5-5.0); ALT/SGPT 102 U/L (21-72); AMYLASE 77 U/L (30-110); AST/SGOT 58 U/L (17-59); BLOOD UREA NITROGEN 8 mg/dl (9-20); CALCIUM 8.3 mg/dL (8.4-10.2); GFR AFRICAN-AMERICAN > 60; GFR NON-AFRICAN AMERICAN > 60; LIPASE 196 U/L (23-300)
[2017-07-29] MEDS: Ciprofloxacin 400mg/200ml D5W 400 MG/200 ML BAG IVPB SCH ×2 (08:23→21:57)
--- NOTE | 2017-07-29 11:16 | US ---
HISTORY: r/o gallstone pancreatitis COMPARISON: None. TECHNIQUE: Sonographic evaluation of the abdomen. FINDINGS: LIVER: Measures 16.6 cm. Diffusely increased echogenicity of the liver parenchyma. Consistent with fatty infiltration. Smooth contour. No mass. No biliary dilatation. GALLBLADDER: Cholelithiasis. No mural thickening or pericholecystic fluid. Negative sonographic Dolan sign. COMMON BILE DUCT: Measures 4 mm. No stones. No dilatation. PANCREAS: Unremarkable as visualized. No mass. No ductal dilatation. RIGHT KIDNEY: Measures 12.3cm. Normal echogenicity. No calculus, mass, or hydronephrosis. LEFT KIDNEY: Measures 12.8cm. Normal echogenicity. No calculus, mass, or hydronephrosis. SPLEEN: Normal in size and contour. No mass. AORTA: No aneurysmal dilatation. IVC: Unremarkable. OTHER FINDINGS: None. IMPRESSION: Unremarkable abdominal sonogram. Fatty infiltration of the liver. Cholelithiasis without evidence of cholecystitis. Otherwise unremarkable examination.
--- NOTE | 2017-07-29 11:46 | CP.PCM.PN ---
Subjective - Date & Time of Evaluation Date of Evaluation: 07/29/17 Time of Evaluation: 11:41 - Subjective Subjective: Surgery Pt seen and examined. No acute events. c/o abd pain. Epigatric area. Denies vomiting, diarrhea, SOB, CP. No BM. Objective - Vital Signs/Intake and Output Vital Signs (last 24 hours): Temp Pulse Resp BP Pulse Ox 98.9 F 66 20 142/87 96 07/29/17 08:25 07/29/17 08:25 07/29/17 08:25 07/29/17 08:25 07/29/17 08:25 Intake and Output: 07/29/17 07/29/17 06:59 18:59 Intake Total 2400 Output Total 2350 Balance 50 - Medications Medications: Current Medications Acetaminophen (Tylenol 325mg Tab) 650 mg PO Q6 PRN PRN Reason: Fever >100.4 F Last Admin: 07/28/17 20:12 Dose: 650 mg Diphenhydramine HCl (Benadryl) 25 mg PO HS PRN PRN Reason: Insomnia Hydromorphone HCl (Dilaudid) 0.5 mg IVP Q6 PRN PRN Reason: Pain, severe (8-10) Last Admin: 07/29/17 06:25 Dose: 0.5 mg Sodium Chloride (Sodium Chloride 0.9%) 1,000 mls @ 200 mls/hr IV .Q5H [facility] Last Admin: 07/28/17 22:15 Dose: Not Given Ciprofloxacin (Cipro 400mg/200ml Dsw) 400 mg in 200 mls @ 200 mls/hr IVPB Q12 MARY PRN Reason: Protocol Last Admin: 07/29/17 08:23 Dose: 200 mls/hr Metronidazole (Flagyl 500mg/100ml Ns) 100 mls @ 100 mls/hr IVPB Q8 MARY PRN Reason: Protocol Last Admin: 07/29/17 08:25 Dose: 100 mls/hr Lactated Ringer's (Lactated Ringer's) 1,000 mls @ 200 mls/hr IV .Q5H [facility] Last Admin: 07/29/17 02:25 Dose: 200 mls/hr Ketorolac Tromethamine (Toradol) 15 mg IVP Q6 PRN PRN Reason: Pain, moderate (4-7) Morphine Sulfate (Morphine) 4 mg IVP Q4 PRN PRN Reason: Pain, moderate (4-7) Last Admin: 07/29/17 08:19 Dose: 4 mg Ondansetron HCl (Zofran Inj) 4 mg IVP Q6 PRN PRN Reason: Nausea/Vomiting Last Admin: 07/27/17 15:43 Dose: 4 mg Potassium Chloride (K-Dur 20 Meq Er Tab) 20 meq PO ONCE ONE Stop: 07/29/17 11:41 - Labs Labs: 07/29/17 06:00 07/29/17 06:00 - Constitutional Appears: Non-toxic - Head Exam Head Exam: ATRAUMATIC, NORMAL INSPECTION, NORMOCEPHALIC - Eye Exam Eye Exam: EOMI, Normal appearance, PERRL Pupil Exam: NORMAL ACCOMODATION, PERRL - ENT Exam ENT Exam: Mucous Membranes Moist, Normal Exam - Neck Exam Neck Exam: Full ROM, Normal Inspection. absent: Lymphadenopathy - Respiratory Exam Respiratory Exam: Clear to Ausculation Bilateral, NORMAL BREATHING PATTERN - Cardiovascular Exam Cardiovascular Exam: REGULAR RHYTHM, +S1, +S2. absent: Murmur - GI/Abdominal Exam GI & Abdominal Exam: Soft, Tenderness, Normal Bowel Sounds. absent: Distended Additional comments: Epigastric TTP - Extremities Exam Extremities Exam: Full ROM, Normal Capillary Refill, Normal Inspection. absent : Joint Swelling, Pedal Edema - Back Exam Back Exam: NORMAL INSPECTION - Neurological Exam Neurological Exam: Alert, Awake, CN II-XII Intact, Normal Gait, Oriented x3 - Psychiatric Exam Psychiatric exam: Normal Affect, Normal Mood - Skin Skin Exam: Dry, Intact, Normal Color, Warm Assessment and Plan - Assessment and Plan (Free Text) Assessment: Acute pancreatitis more likely 2/2 etOH . Possibly 2/[address] abd shows acute pancreatitis. no pancreatic pseudocyst, no pancreatic necrosis. 3mm gallstone US: gallstone. US from 2017 shows 0.5cm immobile gallstone. LIpase trending down. tibili 0.8->1.3-> 1.6 Ast 190->72-> 58 ALT 242->130-> 102 Leukocytosis 14-> 13 Toxicology etOH 159 Plan: -NPO -IVF -Strict I & O: recommeded Lenz. Pt refusing. NGT if pt nauseus or vomits -replete electorolyte PRN -f/u Drug panel -Serial abd exam -GI on board DW Dr. Rodríguez
--- NOTE | 2017-07-29 12:04 | CP.PCM.PN ---
<Tami Rodríguez - Last Filed: 07/29/17 12:07> Subjective - Date & Time of Evaluation Date of Evaluation: 07/29/17 Time of Evaluation: 09:30 - Subjective Subjective: PGY4 GI Follow-up Pt seen and examined bedside still complaining of abd pain denies any fever, chills or diaphoresis ROS: 12 point ROS conducted, neg other than above Objective - Vital Signs/Intake and Output Vital Signs (last 24 hours): Temp Pulse Resp BP Pulse Ox 98.9 F 66 20 142/87 96 07/29/17 08:25 07/29/17 08:25 07/29/17 08:25 07/29/17 08:25 07/29/17 08:25 Intake and Output: 07/29/17 07/29/17 06:59 18:59 Intake Total 2400 Output Total 2350 Balance 50 - Medications Medications: Current Medications Acetaminophen (Tylenol 325mg Tab) 650 mg PO Q6 PRN PRN Reason: Fever >100.4 F Last Admin: 07/28/17 20:12 Dose: 650 mg Diphenhydramine HCl (Benadryl) 25 mg PO HS PRN PRN Reason: Insomnia Hydromorphone HCl (Dilaudid) 0.5 mg IVP Q6 PRN PRN Reason: Pain, severe (8-10) Last Admin: 07/29/17 06:25 Dose: 0.5 mg Sodium Chloride (Sodium Chloride 0.9%) 1,000 mls @ 200 mls/hr IV .Q5H [facility] Last Admin: 07/28/17 22:15 Dose: Not Given Ciprofloxacin (Cipro 400mg/200ml Dsw) 400 mg in 200 mls @ 200 mls/hr IVPB Q12 MARY PRN Reason: Protocol Last Admin: 07/29/17 08:23 Dose: 200 mls/hr Metronidazole (Flagyl 500mg/100ml Ns) 100 mls @ 100 mls/hr IVPB Q8 MARY PRN Reason: Protocol Last Admin: 07/29/17 08:25 Dose: 100 mls/hr Lactated Ringer's (Lactated Ringer's) 1,000 mls @ 200 mls/hr IV .Q5H [facility] Last Admin: 07/29/17 11:49 Dose: 200 mls/hr Ketorolac Tromethamine (Toradol) 15 mg IVP Q6 PRN PRN Reason: Pain, moderate (4-7) Morphine Sulfate (Morphine) 4 mg IVP Q4 PRN PRN Reason: Pain, moderate (4-7) Last Admin: 07/29/17 08:19 Dose: 4 mg Ondansetron HCl (Zofran Inj) 4 mg IVP Q6 PRN PRN Reason: Nausea/Vomiting Last Admin: 07/27/17 15:43 Dose: 4 mg Potassium Chloride (K-Dur 20 Meq Er Tab) 20 meq PO ONCE ONE Stop: 07/29/17 12:31 - Labs Labs: 07/29/17 06:00 07/29/17 06:00 - Constitutional Appears: Well - Head Exam Head Exam: ATRAUMATIC, NORMOCEPHALIC - Eye Exam Eye Exam: Normal appearance - ENT Exam ENT Exam: Mucous Membranes Moist - Neck Exam Neck Exam: Normal Inspection - Respiratory Exam Respiratory Exam: Clear to Ausculation Bilateral, NORMAL BREATHING PATTERN. absent: Prolonged Expiratory Phase, Rales, Rhonchi, Wheezes, Respiratory Distress - Cardiovascular Exam Cardiovascular Exam: REGULAR RHYTHM, +S1, +S2 - GI/Abdominal Exam GI & Abdominal Exam: Tenderness. absent: Distended, Firm, Guarding, Rigid, Soft , Normal Bowel Sounds, Organomegaly - Extremities Exam Extremities Exam: absent: Joint Swelling, Pedal Edema - Neurological Exam Neurological Exam: Alert, Awake, Oriented x3 - Psychiatric Exam Psychiatric exam: Normal Affect, Normal Mood - Skin Skin Exam: Dry, Intact, Normal Color, Warm Assessment and Plan - Assessment and Plan (Free Text) Assessment: Babar Brenner is a 41M w/ hx of pancreatitis and ETOH abuse who presents to the ED with complaints of abd pain Acute pancreatitis, etiology likley 2/2 ETOH vs Gallstone hx of ETOH use cholelithiasis Plan: -start clears -pain management as per primary team -continue LR to 200ml/hr -consulted on alcohol abstinence -will follow -if no imrprovement in symptoms within 48hrs, consider repeat CT w/ Iv contrast D/W Dr. buck <Jose Raul Buck - Last Filed: 07/29/17 19:27> Objective - Vital Signs/Intake and Output Vital Signs (last 24 hours): Temp Pulse Resp BP Pulse Ox 99 F 68 20 128/82 96 07/29/17 16:37 07/29/17 16:37 07/29/17 16:37 07/29/17 16:37 07/29/17 16:37 Intake and Output: 07/29/17 07/30/17 18:59 06:59 Intake Total 2400 Output Total 2350 Balance 50 - Medications Medications: Current Medications Acetaminophen (Tylenol 325mg Tab) 650 mg PO Q6 PRN PRN Reason: Fever >100.4 F Last Admin: 07/28/17 20:12 Dose: 650 mg Diphenhydramine HCl (Benadryl) 25 mg PO HS PRN PRN Reason: Insomnia Hydromorphone HCl (Dilaudid) 0.5 mg IVP Q6 PRN PRN Reason: Pain, severe (8-10) Last Admin: 07/29/17 18:36 Dose: 0.5 mg Ciprofloxacin (Cipro 400mg/200ml Dsw) 400 mg in 200 mls @ 200 mls/hr IVPB Q12 MARY PRN Reason: Protocol Last Admin: 07/29/17 08:23 Dose: 200 mls/hr Metronidazole (Flagyl 500mg/100ml Ns) 100 mls @ 100 mls/hr IVPB Q8 MARY PRN Reason: Protocol Last Admin: 07/29/17 16:05 Dose: 100 mls/hr Lactated Ringer's (Lactated Ringer's) 1,000 mls @ 200 mls/hr IV .Q5H [facility]ARY Last Admin: 07/29/17 11:49 Dose: 200 mls/hr Ketorolac Tromethamine (Toradol) 15 mg IVP Q6 PRN PRN Reason: Pain, moderate (4-7) Last Admin: 07/29/17 14:30 Dose: 15 mg Morphine Sulfate (Morphine) 4 mg IVP Q4 PRN PRN Reason: Pain, moderate (4-7) Last Admin: 07/29/17 16:02 Dose: 4 mg Ondansetron HCl (Zofran Inj) 4 mg IVP Q6 PRN PRN Reason: Nausea/Vomiting Last Admin: 07/27/17 15:43 Dose: 4 mg - Labs Labs: 07/29/17 06:00 07/29/17 06:00 Attending/Attestation - Attestation I have personally seen and examined this patient.: Yes I have fully participated in the care of the patient.: Yes I have reviewed all pertinent clinical information, including history, physical exam and plan: Yes Notes (Text): 07/29/17 19:26 41m with etoh and gallstones with recurrent pancreatitis. Slowly resolving. Continue supportive measures. Recommend etoh cessation and cholecystectomy. Will sign off.
[2017-07-29] MEDS ORDERED: Potassium Chloride 20 mEq ER Tab PO ONE (12:30)
[2017-07-30] MEDS: HYDROmorphone 0.5 mg/0.5 ml ISec IVP PRN ×4 (00:31→20:17)
[2017-07-30] MEDS: metroNIDAZOLE 500mg/100ml NS 100 ML IVPB SCH ×3 (00:32→16:24)
[2017-07-30] MEDS: Lactated Ringer's 1,000 ML IV SCH ×6 (04:00→23:55)
[2017-07-30] MEDS ORDERED: Bismuth Subsalicylate 262 mg Chew Tab PO PRN (06:45)
[2017-07-30 06:53] LABS: HEMOGLOBIN 14.2 g/dL (12.0-18.0); MEAN CELL VOLUME 96.9 fl (80.0-94.0); MEAN CORPUSCULAR HEMOGLOBIN 34.6 pg (27.0-31.0); MEAN CORPUSCULAR HGB CONC 35.8 g/dL (33.0-37.0); RBC 4.1 Mil/uL (4.40-5.90); RED CELL DISTRIBUTION WIDTH 13.4 % (11.5-14.5); WHITE BLOOD COUNT 12.2 K/uL (4.8-10.8)
--- NOTE | 2017-07-30 07:09 | CARD ---
APPROVED REPORT EKG Measurement Heart [id number] <Conclusion> Sinus bradycardia Otherwise normal ECG
[2017-07-30] MEDS: Ciprofloxacin 400mg/200ml D5W 400 MG/200 ML BAG IVPB SCH ×2 (08:07→21:30)
[2017-07-30 08:12] LABS: ALBUMIN 3.5 g/dL (3.5-5.0); ALT/SGPT 89 U/L (21-72); AMYLASE 52 U/L (30-110); AST/SGOT 67 U/L (17-59); BLOOD UREA NITROGEN 13 mg/dl (9-20); CALCIUM 8.4 mg/dL (8.4-10.2); GFR AFRICAN-AMERICAN > 60; GFR NON-AFRICAN AMERICAN > 60; LIPASE 145 U/L (23-300)
--- NOTE | 2017-07-30 08:32 | PN ---
DATE: 07/29/2017 SUBJECTIVE: The patient is seen and examined. Interim events noted. Consults noted and appreciated. Surgery and Gastroenterology followup and interventions noted and appreciated. The patient remains in regular medical floor on IV antibiotics. Still complains of pain with medications, but requires medication almost on a daily basis. No new complaint of chest pain or shortness of breath. Abdominal pain seems to be getting better. PHYSICAL EXAMINATION: GENERAL: The patient is in no acute distress, but still remains in discomfort. VITAL SIGNS: Stable. HEART: S1 and S2, normal and regular. LUNGS: Good bilateral air exchange. ABDOMEN: Soft and nontender. Abdominal exam does not reveal any sign of acute abdomen. No guarding. No rigidity. No rebound, although there is diffuse generalized mild tenderness, which seems to be better than yesterday. EXTREMITIES: No edema, no calf swelling. No tenderness. No acute ischemia. DIAGNOSTIC DATA: Available diagnostic data reviewed. Lipase . PLAN: Overall, the patient is clinically abdominal discomfort. Plan as ordered. Case and plan discussed with the patient. Leonel Campbell MD
--- NOTE | 2017-07-30 12:09 | CP.PCM.PN ---
Subjective - Date & Time of Evaluation Date of Evaluation: 07/30/17 Time of Evaluation: 12:07 - Subjective Subjective: Surgery Pt seen and examined. No acute events. C/O abd pain. Denies Nausea, diarreah, CP , SOB. Objective - Vital Signs/Intake and Output Vital Signs (last 24 hours): Temp Pulse Resp BP Pulse Ox 98.8 F 59 L 20 129/78 95 07/30/17 07:50 07/30/17 07:50 07/30/17 07:50 07/30/17 07:50 07/30/17 07:50 Intake and Output: 07/30/17 07/30/17 06:59 18:59 Intake Total 4800 Output Total 2625 Balance 2175 - Medications Medications: Current Medications Acetaminophen (Tylenol 325mg Tab) 650 mg PO Q6 PRN PRN Reason: Fever >100.4 F Last Admin: 07/28/17 20:12 Dose: 650 mg Diphenhydramine HCl (Benadryl) 25 mg PO HS PRN PRN Reason: Insomnia Hydromorphone HCl (Dilaudid) 0.5 mg IVP Q6 PRN PRN Reason: Pain, severe (8-10) Last Admin: 07/30/17 06:36 Dose: 0.5 mg Ciprofloxacin (Cipro 400mg/200ml Dsw) 400 mg in 200 mls @ 200 mls/hr IVPB Q12 MARY PRN Reason: Protocol Last Admin: 07/30/17 08:07 Dose: 200 mls/hr Metronidazole (Flagyl 500mg/100ml Ns) 100 mls @ 100 mls/hr IVPB Q8 MARY PRN Reason: Protocol Last Admin: 07/30/17 08:07 Dose: 100 mls/hr Lactated Ringer's (Lactated Ringer's) 1,000 mls @ 200 mls/hr IV .Q5H MARY Last Admin: 07/30/17 10:03 Dose: Not Given Ketorolac Tromethamine (Toradol) 15 mg IVP Q6 PRN PRN Reason: Pain, moderate (4-7) Last Admin: 07/29/17 14:30 Dose: 15 mg Morphine Sulfate (Morphine) 4 mg IVP Q4 PRN PRN Reason: Pain, moderate (4-7) Last Admin: 05/21/18 10:10 Dose: 4 mg Ondansetron HCl (Zofran Inj) 4 mg IVP Q6 PRN PRN Reason: Nausea/Vomiting Last Admin: 07/27/17 15:43 Dose: 4 mg - Labs Labs: 07/30/17 06:25 07/30/17 06:25 - Constitutional Appears: No Acute Distress - Head Exam Head Exam: ATRAUMATIC, NORMAL INSPECTION, NORMOCEPHALIC - Eye Exam Eye Exam: EOMI, Normal appearance, PERRL Pupil Exam: NORMAL ACCOMODATION, PERRL - ENT Exam ENT Exam: Mucous Membranes Moist, Normal Exam - Neck Exam Neck Exam: Full ROM, Normal Inspection. absent: Lymphadenopathy - Respiratory Exam Respiratory Exam: Clear to Ausculation Bilateral, NORMAL BREATHING PATTERN - Cardiovascular Exam Cardiovascular Exam: REGULAR RHYTHM, +S1, +S2. absent: Murmur - GI/Abdominal Exam GI & Abdominal Exam: Soft, Tenderness, Normal Bowel Sounds. absent: Distended Additional comments: EPigastric TTP - Exam Exam: NORMAL INSPECTION - Extremities Exam Extremities Exam: Full ROM, Normal Capillary Refill, Normal Inspection. absent : Joint Swelling, Pedal Edema - Back Exam Back Exam: NORMAL INSPECTION - Neurological Exam Neurological Exam: Alert, Awake, CN II-XII Intact, Normal Gait, Oriented x3 - Psychiatric Exam Psychiatric exam: Normal Affect, Normal Mood - Skin Skin Exam: Dry, Intact, Normal Color, Warm Assessment and Plan - Assessment and Plan (Free Text) Assessment: Acute pancreatitis more likely 2/2 etOH less likely 2/[address] abd shows acute pancreatitis. no pancreatic pseudocyst, no pancreatic necrosis. 3mm gallstone US: gallstone. US from 2017 shows 0.5cm immobile gallstone. LIpase trending down, 145 today tibili 0.8->1.3-> 1.6 ->1.5 Leukocytosis 14-> 13 ->12 Toxicology etOH 159 Plan: -Advance diet when pain improved. -IVF -Strict I & O: recommeded Lenz. Pt refusing. NGT if pt nauseus or vomits -replete electorolyte PRN -Serial abd exam -GI on board -Elective out patient lap makenzie Rodríguez
[2017-07-31] MEDS: metroNIDAZOLE 500mg/100ml NS 100 ML IVPB SCH ×3 (00:43→16:29)
[2017-07-31] MEDS: HYDROmorphone 0.5 mg/0.5 ml ISec IVP PRN ×2 (02:42→09:18)
[2017-07-31] MEDS: Lactated Ringer's 1,000 ML IV SCH ×6 (05:47→20:58)
[2017-07-31 06:37] LABS: HEMOGLOBIN 14.4 g/dL (12.0-18.0); MEAN CELL VOLUME 97.6 fl (80.0-94.0); MEAN CORPUSCULAR HEMOGLOBIN 35.1 pg (27.0-31.0); MEAN CORPUSCULAR HGB CONC 35.9 g/dL (33.0-37.0); RBC 4.12 Mil/uL (4.40-5.90); RED CELL DISTRIBUTION WIDTH 13.3 % (11.5-14.5); WHITE BLOOD COUNT 9.9 K/uL (4.8-10.8)
[2017-07-31] MEDS: Ciprofloxacin 400mg/200ml D5W 400 MG/200 ML BAG IVPB SCH ×2 (08:14→21:00)
--- NOTE | 2017-07-31 09:37 | PN ---
DATE: 07/30/2017 SUBJECTIVE: The patient is seen and examined. Interim events noted. Consults noted and appreciated. The patient still complains of abdominal pain, although it is slightly improving. No nausea, vomiting or diarrhea. No chest pain or shortness of breath. PHYSICAL EXAMINATION: GENERAL: The patient is in no acute distress. VITAL SIGNS: Stable. HEART: S1 and S2 normal and regular. LUNGS: Good bilateral air exchange. GASTROINTESTINAL: Abdomen shows mild generalized tenderness, but it is much better. No sign of acute abdomen. No guarding, no rigidity, and no rebound. Bowel sounds are plus and normal. EXTREMITIES: No edema, no calf swelling, and no tenderness. No acute ischemia. CENTRAL NERVOUS SYSTEM: Exam is essentially unchanged. DIAGNOSTIC DATA: Available diagnostic data reviewed. Lipase level has improved. ASSESSMENT AND PLAN: Overall, the patient is slowly improving, but still has significant abdominal pain. Plan as ordered. Case and plan discussed with the patient. Leonel Campbell MD
--- NOTE | 2017-07-31 09:39 | CP.PCM.PN ---
Subjective - Date & Time of Evaluation Date of Evaluation: 07/31/17 Time of Evaluation: 07:15 - Subjective Subjective: Patient seen and examined bedside with Dr Campbell. Patient reports feeling better today. Denies abd pain, n,v,d, fever. Will advance to liquid diet Objective - Vital Signs/Intake and Output Vital Signs (last 24 hours): Temp Pulse Resp BP Pulse Ox 98.5 F 51 L 18 119/76 95 07/31/17 07:42 07/31/17 07:42 07/31/17 07:42 07/31/17 07:42 07/31/17 07:42 Intake and Output: 07/31/17 07/31/17 06:59 18:59 Intake Total 4800 Output Total 2430 Balance 2370 - Medications Medications: Current Medications Acetaminophen (Tylenol 325mg Tab) 650 mg PO Q6 PRN PRN Reason: Fever >100.4 F Last Admin: 07/28/17 20:12 Dose: 650 mg Diphenhydramine HCl (Benadryl) 25 mg PO HS PRN PRN Reason: Insomnia Hydromorphone HCl (Dilaudid) 0.5 mg IVP Q6 PRN PRN Reason: Pain, severe (8-10) Last Admin: 07/31/17 09:18 Dose: 0.5 mg Ciprofloxacin (Cipro 400mg/200ml Dsw) 400 mg in 200 mls @ 200 mls/hr IVPB Q12 MARY PRN Reason: Protocol Last Admin: 07/31/17 08:14 Dose: 200 mls/hr Metronidazole (Flagyl 500mg/100ml Ns) 100 mls @ 100 mls/hr IVPB Q8 MARY PRN Reason: Protocol Last Admin: 07/31/17 08:13 Dose: 100 mls/hr Lactated Ringer's (Lactated Ringer's) 1,000 mls @ 200 mls/hr IV .Q5H MARY Last Admin: 07/31/17 08:27 Dose: 200 mls/hr Ketorolac Tromethamine (Toradol) 15 mg IVP Q6 PRN PRN Reason: Pain, moderate (4-7) Last Admin: 07/30/17 21:19 Dose: 15 mg Morphine Sulfate (Morphine) 4 mg IVP Q4 PRN PRN Reason: Pain, moderate (4-7) Last Admin: 07/31/17 06:31 Dose: 4 mg Ondansetron HCl (Zofran Inj) 4 mg IVP Q6 PRN PRN Reason: Nausea/Vomiting Last Admin: 07/27/17 15:43 Dose: 4 mg - Labs Labs: 07/31/17 04:00 07/30/17 06:25 - Constitutional Appears: Non-toxic, No Acute Distress - Head Exam Head Exam: ATRAUMATIC, NORMOCEPHALIC - Eye Exam Eye Exam: Normal appearance - ENT Exam ENT Exam: Mucous Membranes Moist - Respiratory Exam Respiratory Exam: Clear to Ausculation Bilateral. absent: Rhonchi, Wheezes, Stridor - Cardiovascular Exam Cardiovascular Exam: REGULAR RHYTHM, +S1, +S2 - GI/Abdominal Exam GI & Abdominal Exam: Soft, Tenderness, Normal Bowel Sounds Additional comments: mild TD epigastrium - Extremities Exam Extremities Exam: Normal Inspection. absent: Pedal Edema - Neurological Exam Neurological Exam: Alert, Awake, Oriented x3 - Psychiatric Exam Psychiatric exam: Normal Affect, Normal Mood - Skin Skin Exam: Intact Assessment and Plan - Assessment and Plan (Free Text) Plan: Assessment/Plan 1) Acute Pancreatitis Recurrent -secondary to ETOH and cholelithiasis. -improving - CT abd shows acute pancreatitis. no pancreatic pseudocyst, no pancreatic necrosis. 3mm gallstone US: gallstone. US from 2017 shows 0.5cm immobile gallstone. -wbc trending down, lipase 145 -Surgery consult appreciated: Will start liquid diet and advance as tolerated -c/w Cipro/flagyl 2) HTN -Controlled 3) Anxiety Controlled 4) DVT Prophylaxis -Lovenox 40 mg sc daily
[2017-07-31] MEDS: Enoxaparin 40 mg Syringe SC SCH (12:40)
[2017-08-01] MEDS: metroNIDAZOLE 500mg/100ml NS 100 ML IVPB SCH ×2 (00:42→08:31)
[2017-08-01] MEDS: Lactated Ringer's 1,000 ML IV SCH ×2 (00:45→05:15)
[2017-08-01 08:12] LABS: ALBUMIN 3.4 g/dL (3.5-5.0); ALT/SGPT 83 U/L (21-72); AMYLASE 49 U/L (30-110); AST/SGOT 88 U/L (17-59); BLOOD UREA NITROGEN 13 mg/dl (9-20); CALCIUM 8.4 mg/dL (8.4-10.2); GFR AFRICAN-AMERICAN > 60; GFR NON-AFRICAN AMERICAN > 60; LIPASE 123 U/L (23-300)
[2017-08-01] MEDS: Ciprofloxacin 400mg/200ml D5W 400 MG/200 ML BAG IVPB SCH (08:31)
[2017-08-01] MEDS: Enoxaparin 40 mg Syringe SC SCH (08:33)
--- NOTE | 2017-08-01 12:26 | CP.PCM.DIS ---
Provider - Provider Date of Admission: 07/27/17 13:31 Attending physician: Leonel Campbell MD Consults: surgery Dr Rodríguez GI Dr Meadows Time Spent in preparation of Discharge (in minutes): 20 Hospital Course - Lab Results Lab Results: Micro Results 07/27/17 12:10 Blood-Venous Blood Culture - Preliminary NO GROWTH AFTER 4 DAYS 07/27/17 12:20 Blood-Venous Blood Culture - Preliminary NO GROWTH AFTER 4 DAYS 07/27/17 19:45 Urine Urine Culture - Final Gram Positive Cocci Most Recent Lab Values WBC 9.9 K/uL (4.8-10.8) 07/31/17 04:00 RBC 4.12 Mil/uL (4.40-5.90) L 07/31/17 04:00 Hgb 14.4 g/dL (12.0-18.0) 07/31/17 04:00 Hct 40.2 % (35.0-51.0) 07/31/17 04:00 MCV 97.6 fl (80.0-94.0) H 07/31/17 04:00 MCH 35.1 pg (27.0-31.0) H 07/31/17 04:00 MCHC 35.9 g/dL (33.0-37.0) 07/31/17 04:00 RDW 13.3 % (11.5-14.5) 07/31/17 04:00 Plt Count 192 K/uL (130-400) 07/31/17 04:00 MPV 8.4 fl (7.2-11.7) 07/28/17 16:01 Neut % (Auto) 78.0 % (50.0-75.0) H 07/28/17 16:01 Lymph % (Auto) 11.7 % (20.0-40.0) L 07/28/17 16:01 [place] % (Auto) 9.5 % (0.0-10.0) 07/28/17 16:01 Eos % (Auto) 0.2 % (0.0-4.0) 07/28/17 16:01 Baso % (Auto) 0.6 % (0.0-2.0) 07/28/17 16:01 Neut # (Auto) 11.0 K/uL (1.8-7.0) H 07/28/17 16:01 Lymph # (Auto) 1.7 K/uL (1.0-4.3) 07/28/17 16:01 [place] # (Auto) 1.3 K/uL (0.0-0.8) H 07/28/17 16:01 Eos # (Auto) 0.0 K/uL (0.0-0.7) 07/28/17 16:01 Baso # (Auto) 0.1 K/uL (0.0-0.2) 07/28/17 16:01 pO2 63 mm/Hg (30-55) H 07/27/17 12:18 VBG pH 7.39 (7.32-7.43) 07/27/17 12:18 VBG pCO2 39 mmHg (40-60) L 07/27/17 12:18 VBG HCO3 23.7 mmol/L 07/27/17 12:18 VBG Total CO2 24.8 mmol/L (22-28) 07/27/17 12:18 VBG O2 Sat (Calc) 95.7 % (40-65) H 07/27/17 12:18 VBG Base Excess -1.2 mmol/L (0.0-2.0) L 07/27/17 12:18 VBG Potassium 3.6 mmol/L (3.6-5.2) 07/27/17 12:18 Sodium 140.0 mmol/L (132-148) 07/27/17 12:18 Chloride 106.0 mmol/L (98-107) 07/27/17 12:18 Glucose 138 mg/dL (75-110) H 07/27/17 12:18 Lactate 2.6 mmol/L (0.7-2.1) H 07/27/17 12:18 FiO2 21.0 % 07/27/17 12:18 Sodium 138 mmol/l (132-148) 07/31/17 04:00 Potassium 3.9 MMOL/L (3.6-5.0) 07/31/17 04:00 Chloride 102 mmol/L (98-107) 07/31/17 04:00 Carbon Dioxide 21 mmol/L (22-30) L 07/31/17 04:00 Anion Gap 19 (10-20) 07/31/17 04:00 BUN 13 mg/dl (9-20) 07/31/17 04:00 Creatinine 0.6 mg/dl (0.8-1.5) L 07/31/17 04:00 Est GFR ( Amer) > 60 07/31/17 04:00 Est GFR (Non-Af Amer) > 60 07/31/17 04:00 Random Glucose 74 mg/dL (75-110) L 07/31/17 04:00 Calcium 8.4 mg/dL (8.4-10.2) 07/31/17 04:00 Total Bilirubin 1.0 mg/dl (0.2-1.3) 07/31/17 04:00 AST 88 U/L (17-59) H D 07/31/17 04:00 ALT 83 U/L (21-72) H 07/31/17 04:00 Alkaline Phosphatase 85 U/L (38-126) 07/31/17 04:00 Troponin I < 0.0120 ng/mL (0.00-0.120) 07/27/17 15:08 Total Protein 6.9 G/DL (6.3-8.2) 07/31/17 04:00 Albumin 3.4 g/dL (3.5-5.0) L 07/31/17 04:00 Globulin 3.5 gm/dL (2.2-3.9) 07/31/17 04:00 Albumin/Globulin Ratio 1.0 (1.0-2.1) 07/31/17 04:00 Triglycerides 134 mg/DL (0-149) 07/29/17 06:00 Amylase 49 U/L (30-110) 07/31/17 04:00 Lipase 123 U/L (23-300) 07/31/17 04:00 Venous Blood Potassium 3.6 mmol/L (3.6-5.2) 07/27/17 12:18 Urine Color Jennifer (YELLOW) 07/27/17 19:45 Urine Clarity Slighty-cloudy (Clear) 07/27/17 19:45 Urine pH 5.0 (5.0-8.0) 07/27/17 19:45 Ur Specific [place] 1.049 (1.003-1.030) H 07/27/17 19:45 Urine Protein 30 mg/dL (NEGATIVE) 07/27/17 19:45 Urine Glucose (UA) Neg mg/dL (Normal) 07/27/17 19:45 Urine Ketones Trace mg/dL (NEGATIVE) 07/27/17 19:45 Urine Blood Trace (NEGATIVE) H 07/27/17 19:45 Urine Nitrate Negative (NEGATIVE) 07/27/17:45 Urine Bilirubin Negative (NEGATIVE) 07/27/17 19:45 Urine Urobilinogen 0.2-1.0 mg/dL (0.2-1.0) 07/27/17:45 Ur Leukocyte Esterase Trace Paulie/uL (Negative) 07/27/17:45 Urine RBC (Auto) 8 /hpf (0-3) H 07/27/17:45 Urine Microscopic WBC 7 /hpf (0-5) H 07/27/17:45 Ur Squamous Epith Cells 1 /hpf (0-5) 07/27/17:45 Urine Bacteria Rare (<OCC) 07/27/17 19:45 Alcohol, Quantitative 159 mg/dl (0-10) H 07/27/17 14:12 - Hospital Course Hospital Course: 41 yo ,m, Pmhx/o recurrent pancreatitis, ETOH abuse admitted for new episode of acute pancreatitis. Abd CT revealed cholelithiasis and evidence of pancreatitis , small amount of peripancreatic fluid but no pancreatic necrosis, psudocyst or gas. 3mm gallstone. Patient evaluated by Surgery Dr Rodríguez and GI Dr Dickens. Patient clinically improved, able to tolerate regular diet, abd pain subsided, labs improved, lipase normalized. Patient asymptomatic today, seen by Dr Campbell. Patient cleared to be discharged and f/o with Dr Rodríguez for elective lap cholecystectomy. - Diagnosis on discharge 1) Acute pancreatitis -recurrent -resolved 2) ETOH abuse -chronic. 3) HTN -chronic 4) Anxiety -chronic Discharge Exam - Head Exam Head Exam: ATRAUMATIC, NORMOCEPHALIC - Eye Exam Eye Exam: Normal appearance - ENT Exam ENT Exam: Mucous Membranes Moist - Respiratory Exam Respiratory Exam: Clear to PA & Lateral. absent: Rales, Wheezes - Cardiovascular Exam Cardiovascular Exam: REGULAR RHYTHM, +S1, +S2 - GI/Abdominal Exam GI & Abdominal Exam: Normal Bowel Sounds, Soft. absent: Tenderness - Extremities Exam Extremities exam: normal inspection - Neurological Exam Neurological exam: Alert, Normal Gait, Oriented x3 - Psychiatric Exam Psychiatric exam: Normal Affect, Normal Mood - Skin Skin Exam: Intact Discharge Plan - Follow Up Plan Condition: STABLE Disposition: HOME/ ROUTINE Instructions: Low Cholesterol, Saturated Fat, and Trans Fat Diet , Pancreatitis (DC) Additional Instructions: call to make appointment to visit Dr. Rodríguez's office to schedule elective laparoscopic cholecystectomy to prevent gallbladder attack in the future Low fat diet Alcohol cessation Referrals: Mayra Zamora MD [Family Provider] - Valentina Rodríguez MD [Staff Provider] -
[2017-08-01 15:58] VITALS: BP 149/92; PULSE 59; RESP 18; TEMP 98.9
[2017-08-01 16:24] LABS: HEPATITIS B SURFACE AG Negative (NEGATIVE)
[2017-08-01 16:29] LABS: HEPATITIS B CORE AB NEGATIVE (NEGATIVE)
[2017-08-01 16:41] LABS: HEPATITIS C ANTIBODY NEGATIVE (NEGATIVE)
[2017-08-01 18:33] VITALS: O2SAT 100
== END 2017-08-01 18:48 | disposition home or self-care (01) | DRG 204 ==
LOC: H.ER 11:32 → H.ERHOLD 13:31 → H.MEDSURG1 16:48
PROVIDERS: ADMIT Internal Medicine; ATTEND Internal Medicine
DX: K85.20 Alcohol induced acute pancreatitis without necrosis or infection (principal); K85.10 Biliary acute pancreatitis without necrosis or infection; F10.129 Alcohol abuse with intoxication, unspecified; Y90.6 Blood alcohol level of 120-199 mg/100 ml; Z91.013 Allergy to seafood; F41.9 Anxiety disorder, unspecified; I10 Essential (primary) hypertension; E66.9 Obesity, unspecified; Z68.29 Body mass index [BMI] 29.0-29.9, adult; K76.0 Fatty (change of) liver, not elsewhere classified; F32.9 Major depressive disorder, single episode, unspecified; K57.90 Diverticulosis of intestine, part unspecified, without perforation or abscess without bleeding

== ENCOUNTER 2017-10-08 14:46 | Inpatient (IN) | payer MEDICAID ==
[2017-10-08 14:46] VITALS: BMI 37.1
[2017-10-08] MEDS ORDERED: Sodium Chloride 0.9% 1,000 ML IV STA ×2 (15:37→18:31)
--- NOTE | 2017-10-08 15:49 | ED PDOC ---
HPI: Abdomen Time Seen by Provider: 10/08/17 15:33 Chief Complaint (Nursing): Abdominal Pain Chief Complaint (Provider): abdominal pain History Per: Patient History/Exam Limitations: no limitations Onset/Duration Of Symptoms: Days (x3) Current Symptoms Are (Timing): Still Present Location Of Pain/Discomfort: Epigastric Associated Symptoms: Nausea, Vomiting. denies: Fever, Chills, Diarrhea Additional Complaint(s): Babar Brenner is a 41 year old male, with a past medical history of ETOH abuse related pancreatitis, who presents to the emergency department complaining of epigastric pain associated with nausea and vomiting. Patient states last drink was x3 days ago and feels tremulous. Patient also reports falling x3 days ago with injury to face. He denies any LOC, dizziness, diarrhea, fever or chills. No further medical complaints. PMD: Mayra Zamora Past Medical History Reviewed: Historical Data, Nursing Documentation, Vital Signs Vital Signs: Last Vital Signs Temp 98.0 F 10/08/17 15:07 Pulse 95 H 10/08/17 15:07 Resp 20 10/08/17 15:07 BP 148/94 H 10/08/17 15:07 Pulse Ox 96 10/08/17 15:55 - Medical History PMH: Anxiety, Arthritis (as per CT results), Asthma (pt reports hx. Asthna, no meds), Fractures (L shoulder Fx), HTN, Pancreatitis Denies: COPD, HIV, Chronic Kidney Disease - Surgical History Surgical History: No Surg Hx - Family History Family History: States: Unknown Family Hx - Immunization History Hx Tetanus Toxoid Vaccination: (unk) Hx Influenza Vaccination: (unk) Hx Pneumococcal Vaccination: (unk) - Home Medications Home Medications: Ambulatory Orders Medication Instructions Recorded Unobtainable 10/07/17 - Allergies Allergies/Adverse Reactions: Allergies Allergy/AdvReac Type Severity Reaction Status Date / Time magnesium Allergy Mild RASH Verified 10/08/17 15:06 cat dander Allergy RASH Verified 10/08/17 15:06 liquid tylenol Allergy RASH Uncoded 07/27/17 11:54 seafood Allergy RASH Uncoded 07/27/17 11:54 Review of Systems ROS Statement: Except As Marked, All Systems Reviewed And Found Negative Constitutional: Negative for: Fever, Chills Gastrointestinal: Positive for: Nausea, Vomiting, Abdominal Pain (epigastric). Negative for: Diarrhea Skin: Positive for: Other (facial injuries) Neurological: Negative for: Dizziness, Other (LOC) Physical Exam - Reviewed Nursing Documentation Reviewed: Yes Vital Signs Reviewed: Yes - Physical Exam Appears: Positive for: No Acute Distress Head Exam: Positive for: NORMOCEPHALIC. Negative for: ATRAUMATIC (infraorbital and bridge of nose ecchymosis) Skin: Positive for: Normal Color, Warm, Dry Eye Exam: Positive for: Normal appearance, EOMI, PERRL Neck: Positive for: Painless ROM Cardiovascular/Chest: Positive for: Regular Rate, Rhythm. Negative for: Murmur Respiratory: Positive for: Normal Breath Sounds. Negative for: Respiratory Distress Gastrointestinal/Abdominal: Positive for: Bowel Sounds (present), Tenderness ( epigastric ), Distended Back: Positive for: Normal Inspection Extremity: Positive for: Normal ROM (Full ROM to left upper extremities), Other (ecchymosis to left forearm and wrist) Neurologic/Psych: Positive for: Alert, Oriented (x3), Other (mild tremors noted on upper extremities). Negative for: Motor/Sensory Deficits (no focal deficits) - Laboratory Results Result Diagrams: 10/08/17 15:50 - ECG O2 Sat by Pulse Oximetry: 96 (RA) Pulse Ox Interpretation: Normal Medical Decision Making Medical Decision Making: Time: 15:33 Initial Plan: --Abd & Pelvis w/o PO or IV Contrast [CT] --Head w/o contrast [CT] --Maxillofacial w/o contrast [CT] --EKG --Alcohol serum --CMP --Lipase --CBC w/ differential --Morphine 2mg IVP --Sodium Chloride 1,000 ml IV 100 mls/hr --Zofran Inj 4 mg IVP --Reevaluation ----- Scribe Attestation: Documented by Elliott Jensen, acting as a scribe for Rustam Gomez MD. Provider Scribe Attestation: All medical record entries made by the Scribe were at my direction and personally dictated by me. I have reviewed the chart and agree that the record accurately reflects my personal performance of the history, physical exam, medical decision making, and the department course for this patient. I have also personally directed, reviewed, and agree with the discharge instructions and disposition. Disposition - Clinical Impression Clinical Impression: Abdominal pain, Alcohol withdrawal - Patient ED Disposition Is Patient to be Admitted: Transfer of Care - Disposition Disposition: Transfer of Care Disposition Time: 16:54 Condition: FAIR Forms: [employer] (Cym[employer]) Patient Signed Over To: Kevin Joseph
[2017-10-08 16:42] LABS: BASO % 0.5 % (0.0-2.0); EOS % 0.2 % (0.0-4.0); HEMOGLOBIN 14.6 g/dL (12.0-18.0); LYMPH % 10.6 % (20.0-40.0); MEAN CELL VOLUME 96.1 fl (80.0-94.0); MEAN CORPUSCULAR HEMOGLOBIN 34.5 pg (27.0-31.0); MEAN CORPUSCULAR HGB CONC 35.9 g/dL (33.0-37.0); MEAN PLATELET VOLUME 9.5 fl (7.2-11.7); MONO # 0.8 K/uL (0.0-0.8); MONO % 8.5 % (0.0-10.0); NEUT # 7.6 K/uL (1.8-7.0); NEUT % 80.2 % (50.0-75.0); NRBC % 0.1 % (0.0-0.0); RBC 4.24 Mil/uL (4.40-5.90); RED CELL DISTRIBUTION WIDTH 14.5 % (11.5-14.5); WHITE BLOOD COUNT 9.5 K/uL (4.8-10.8)
[2017-10-08 16:55] LABS: CALCIUM 9.1 mg/dL (8.4-10.2); GFR AFRICAN-AMERICAN > 60; GFR NON-AFRICAN AMERICAN > 60
[2017-10-08 16:59] LABS: ALB/GLOB RATIO 1.2 (1.0-2.1); ALT/SGPT 192 U/L (21-72); AST/SGOT 255 U/L (17-59); BLOOD UREA NITROGEN 7 mg/dl (9-20)
--- NOTE | 2017-10-08 17:01 | RAD ---
Date of service: 10/08/2017 PROCEDURE: Left Wrist Radiographs. HISTORY: trauma COMPARISON: None. FINDINGS: BONES: Normal. No fracture. JOINTS: Normal. No dislocation. SOFT TISSUES: Normal. OTHER FINDINGS: None. IMPRESSION: Normal left wrist radiographs.
[2017-10-08 17:19] LABS: LIPASE 2687 U/L (23-300)
--- NOTE | 2017-10-08 17:21 | ED PDOC ---
- Laboratory Results Result Diagrams: 10/11/17 05:05 10/11/17 05:05 - ECG O2 Sat by Pulse Oximetry: 96 (RA) Pulse Ox Interpretation: Normal Medical Decision Making Medical Decision Makin:00 --care endorsed by Dr. Gomez pending labs and CT reports Head Ct FINDINGS: HEMORRHAGE: No intracranial hemorrhage. BRAIN: Normal [place]-white matter differentiation and density are appreciated throughout the cerebrum and cerebellum with the brainstem appearing unremarkable as well. Small cystic structures felt to be lateral to the perineum pineal gland measuring 2.4 x 1.2 cm once again best seen in image 24 with some extension superiorly and immediately inferior to the left side of body of the corpus callosum. Follow-up MRI should be considered without contrast on on an elective basis. No significant mass effect. VENTRICLES: Unremarkable. No hydrocephalus. CALVARIUM: Unremarkable. PARANASAL SINUSES: Unremarkable as visualized. No significant inflammatory changes. MASTOID AIR CELLS: Unremarkable as visualized. No inflammatory changes. OTHER FINDINGS: None. IMPRESSION: Stable 2.4 cm lucency lateral to the pineal gland extending cephalad to the inferior margins of the body of the corpus callosum once again. Remainder the brain is negative appearing. Follow-up MRI is recommended with and without contrast on elective basis. No evidence of intracranial hemorrhage in the supra or infratentorial compartments. Abdomen Pelvis CT FINDINGS: LOWER THORAX: Unremarkable. LIVER: Hepatic steatosis. No focal masses. No intrahepatic bile duct dilatation or perihepatic ascites. GALLBLADDER AND BILE DUCTS: Cholelithiasis without CT evidence of acute cholecystitis. PANCREAS: Inflammatory changes about the mildly edematous pancreas consistent with acute pancreatitis. Additional findings include peripancreatic fluid. Without intravenous contrast assessment for necrotizing pancreatitis not possible SPLEEN: Unremarkable. ADRENALS: Unremarkable. No mass. KIDNEYS AND URETERS: Unremarkable. No hydronephrosis. No solid mass. VASCULATURE: Unremarkable. No aortic aneurysm. BOWEL: Unremarkable. No obstruction. No gross mural thickening. APPENDIX: Unremarkable. Normal appendix. PERITONEUM: Unremarkable. No free fluid. No free air. LYMPH NODES: Unremarkable. No enlarged lymph nodes. BLADDER: Solitary 3 mm calculus adjacent to the right ureterovesical junction. Similar findings identified on the prior CT scan 07/27/2017. REPRODUCTIVE: Unremarkable. BONES: No acute fracture. OTHER FINDINGS: None. IMPRESSION: 1. Acute pancreatitis. Similar findings with respect to distribution and severity noted on the prior study 07/27/2017. Limitations of the current examination: Absence of intravenous contrast precludes assessment for necrotizing pancreatitis. 2. Distended gallbladder with solitary gallstone. No evidence of choledocholithiasis. 3. Solitary bladder calculi similar finding identified previously Time: 18:38 --Labs consulted and reveal elevated lipase levels. Reviewed Ct abdomen. Diagnosis is acute pancreatitis. --Dr. Campbell will admit patient to his service and requests Dr. Meadows for consult. Time: 19:25 US FINDINGS: Liver: There is hepatomegaly with liver length 20 cm and the hepatic parenchyma is echogenic consistent with diffuse fatty liver. Gallbladder: There is an echogenic calculus in the gallbladder lumen consistent with cholelithiasis but no abnormal gallbladder wall thickening, no pericholecystic fluid and negative sonographic Dolan sign and therefore not specific for acute cholecystitis. Common bile duct: Normal. No stones. No dilation. Pancreas: The pancreas is hypoechoic suspicious for an edematous change consistent with acute pancreatitis. The patient was in severe pain over the area of the pancreas. Right kidney: Normal. No mass. No hydronephrosis. IMPRESSION: 1. There is an echogenic calculus in the gallbladder lumen consistent with cholelithiasis but no abnormal gallbladder wall thickening, no pericholecystic fluid and negative sonographic Dolan sign and therefore not specific for acute cholecystitis. 2. The pancreas is hypoechoic suspicious for an edematous change consistent with acute pancreatitis. The patient was in severe pain over the area of the pancreas. ---- Scribe Attestation: Documented by Cheryl Arroyo, acting as a scribe for Kevin Chavez MD Provider Scribe Attestation: All medical record entries made by the Scribe were at my direction and personally dictated by me. I have reviewed the chart and agree that the record accurately reflects my personal performance of the history, physical exam, medical decision making, and the department course for this patient. I have also personally directed, reviewed, and agree with the discharge instructions and disposition. Disposition Discussed With DrWang: Leonel Campbell Doctor Will See Patient In The: Hospital Counseled Patient/Family Regarding: Studies Performed, Diagnosis - Clinical Impression Clinical Impression: Abdominal pain, Alcohol withdrawal, Pancreatitis, alcoholic, acute - POA Present On Arrival: None - Disposition Disposition: Admitted as In-Patient Disposition Time: 18:30 Condition: FAIR
--- NOTE | 2017-10-08 17:22 | CT ---
Date of service: 10/08/2017 PROCEDURE: CT HEAD WITHOUT CONTRAST. HISTORY: r/o bleed COMPARISON: Noncontrast head CT 09/22/2016. TECHNIQUE: Axial computed tomography images were obtained through the head/brain without intravenous contrast. Radiation dose: Total exam DLP = 892.80 mGy-cm. This CT exam was performed using one or more of the following dose reduction techniques: Automated exposure control, adjustment of the mA and/or kV according to patient size, and/or use of iterative reconstruction technique. FINDINGS: HEMORRHAGE: No intracranial hemorrhage. BRAIN: Normal macedo-white matter differentiation and density are appreciated throughout the cerebrum and cerebellum with the brainstem appearing unremarkable as well. Small cystic structures felt to be lateral to the perineum pineal gland measuring 2.4 x 1.2 cm once again best seen in image 24 with some extension superiorly and immediately inferior to the left side of body of the corpus callosum. Follow-up MRI should be considered without contrast on on an elective basis. No significant mass effect. VENTRICLES: Unremarkable. No hydrocephalus. CALVARIUM: Unremarkable. PARANASAL SINUSES: Unremarkable as visualized. No significant inflammatory changes. MASTOID AIR CELLS: Unremarkable as visualized. No inflammatory changes. OTHER FINDINGS: None. IMPRESSION: Stable 2.4 cm lucency lateral to the pineal gland extending cephalad to the inferior margins of the body of the corpus callosum once again. Remainder the brain is negative appearing. Follow-up MRI is recommended with and without contrast on elective basis. No evidence of intracranial hemorrhage in the supra or infratentorial compartments.
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
--- NOTE | 2017-10-08 17:38 | CT ---
Date of service: 10/08/2017 PROCEDURE: CT Abdomen and Pelvis without intravenous contrast HISTORY: Abd pain. h/o pancreatitis COMPARISON: 07/27/2017 CT abdomen and pelvis. 07/29/2017 abdominal ultrasound TECHNIQUE: CT abdomen and pelvis Unenhanced study. Neither oral nor intravenous contrast administered. Sensitivity and specificity for acute inflammatory processes limited by the absence of oral and intravenous contrast. Radiation dose: Total exam DLP = mGy-cm. This CT exam was performed using one or more of the following dose reduction techniques: Automated exposure control, adjustment of the mA and/or kV according to patient size, and/or use of iterative reconstruction technique. FINDINGS: LOWER THORAX: Unremarkable. LIVER: Hepatic steatosis. No focal masses. No intrahepatic bile duct dilatation or perihepatic ascites. GALLBLADDER AND BILE DUCTS: Cholelithiasis without CT evidence of acute cholecystitis. PANCREAS: Inflammatory changes about the mildly edematous pancreas consistent with acute pancreatitis. Additional findings include peripancreatic fluid. Without intravenous contrast assessment for necrotizing pancreatitis not possible SPLEEN: Unremarkable. ADRENALS: Unremarkable. No mass. KIDNEYS AND URETERS: Unremarkable. No hydronephrosis. No solid mass. VASCULATURE: Unremarkable. No aortic aneurysm. BOWEL: Unremarkable. No obstruction. No gross mural thickening. APPENDIX: Unremarkable. Normal appendix. PERITONEUM: Unremarkable. No free fluid. No free air. LYMPH NODES: Unremarkable. No enlarged lymph nodes. BLADDER: Solitary 3 mm calculus adjacent to the right ureterovesical junction. Similar findings identified on the prior CT scan 07/27/2017. REPRODUCTIVE: Unremarkable. BONES: No acute fracture. OTHER FINDINGS: None. IMPRESSION: 1. Acute pancreatitis. Similar findings with respect to distribution and severity noted on the prior study 07/27/2017. Limitations of the current examination: Absence of intravenous contrast precludes assessment for necrotizing pancreatitis. 2. Distended gallbladder with solitary gallstone. No evidence of choledocholithiasis. 3. Solitary bladder calculi similar finding identified previously
[2017-10-08] MEDS ORDERED: Morphine 4 MG/ML VIAL ONE ×2 (17:49→23:58)
[2017-10-08] MEDS ORDERED: Morphine 4 MG/ML VIAL IVP ONE (18:00)
[2017-10-08 18:53] LABS: VENOUS BLOOD GAS PCO2 36 mmHg (40-60); VENOUS BLOOD GAS PO2 59 mm/Hg (30-55)
[2017-10-08] MEDS: metroNIDAZOLE 500mg/100ml NS 100 ML IVPB SCH ×3 (19:50→20:05)
[2017-10-08] MEDS ORDERED: metroNIDAZOLE 500mg/100ml NS 100 ML IVPB ONE (19:52)
[2017-10-08] MEDS: Ciprofloxacin 400mg/200ml D5W 400 MG/200 ML BAG IVPB SCH (20:59)
[2017-10-08] MEDS ORDERED: Ciprofloxacin 400mg/200ml D5W 400 MG/200 ML BAG IVPB ONE (20:59)
[2017-10-09] MEDS ORDERED: Morphine 4 MG/ML VIAL ONE ×2 (03:19→06:15)
[2017-10-09] MEDS: Lactated Ringer's 1,000 ML IV SCH ×3 (06:25→14:19)
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
[2017-10-09 08:05] LABS: HEMOGLOBIN 14.5 g/dL (12.0-18.0); MEAN CELL VOLUME 96.9 fl (80.0-94.0); MEAN CORPUSCULAR HEMOGLOBIN 34.9 pg (27.0-31.0); RBC 4.17 Mil/uL (4.40-5.90); RED CELL DISTRIBUTION WIDTH 14.2 % (11.5-14.5); WHITE BLOOD COUNT 8.6 K/uL (4.8-10.8)
[2017-10-09 08:26] LABS: LDL CHOLESTEROL 100 mg/dL (0-129)
[2017-10-09 08:28] LABS: ALB/GLOB RATIO 1.2 (1.0-2.1); ALBUMIN 4.3 g/dL (3.5-5.0); ALT/SGPT 141 U/L (21-72); AST/SGOT 136 U/L (17-59); BLOOD UREA NITROGEN 4 mg/dl (9-20); CALCIUM 9.1 mg/dL (8.4-10.2); GFR AFRICAN-AMERICAN > 60; GFR NON-AFRICAN AMERICAN > 60; HDL CHOLESTEROL 61 MG/DL (30-70)
--- NOTE | 2017-10-09 08:40 | CP.PCM.HP ---
<Sunshine Navarro - Last Filed: 10/09/17 10:33> History of Present Illness - History of Present Illness History of Present Illness: HPI: 41 YO Male with PMHx of ETOH abuse, alcoholic pancreatitis and cholelithiasis presents to [facility] ED for abdominal pain. Pt states that his pain started about 4 days ago, after list ETOH intake. Pain is sharp in nature with radiation to his back. Associated with nausea and multiple episodes of emesis ( NB). Additionally pt states that about a week ago he fell adn hit his face, pt was intoxicated and does not totally recall the event. Pt endorses drinking 4x a week, drinks about a pint of vodka a day. Denies dyspnea, chest pain, palpatations, v/d fever and chills. No visual or auditory hallucination, no tactile sensation. PMHx: Alcohol Abuse, Pancreatitis, HTN, Asthma PSHx: L Shoulder Social Hx: + ETOH use, and occasional smoking, denies any illicit drug use Allergies: liquid tylenol sweating, magnesium rash Present on Admission - Present on Admission Any Indicators Present on Admission: No Review of Systems - Constitutional Constitutional: absent: Chills, Fever - Cardiovascular Cardiovascular: absent: Chest Pain, Dyspnea, Palpitations - Respiratory Respiratory: absent: Cough, Dyspnea - Gastrointestinal Gastrointestinal: Abdominal Pain, Nausea. absent: Constipation, Diarrhea, Vomiting - Genitourinary Genitourinary: absent: Dysuria Past Patient History - Past Medical History & Family History Past Medical History?: Yes - Past Social History Smoking Status: Current Some Days Smoker Alcohol: Other (1 pint of vodka 4x a week) Drugs: Denies - CARDIAC Hx Hypertension: Yes - PULMONARY Hx Asthma: Yes (pt reports hx. Asthna, no meds) Hx Chronic Obstructive Pulmonary Disease (COPD): No - NEUROLOGICAL Hx Neurological Disorder: No - HEENT Hx HEENT Problems: No - RENAL Hx Chronic Kidney Disease: No - ENDOCRINE/METABOLIC Hx Endocrine Disorders: No - HEMATOLOGICAL/ONCOLOGICAL Hx Human Immunodeficiency Virus (HIV): No - INTEGUMENTARY Hx Dermatological Problems: No - MUSCULOSKELETAL/RHEUMATOLOGICAL Hx Arthritis: Yes (as per CT results) Hx Fractures: Yes (L shoulder Fx) - GASTROINTESTINAL Hx Pancreatitis: Yes - GENITOURINARY/GYNECOLOGICAL Hx Genitourinary Disorders: No - PSYCHIATRIC Hx Anxiety: Yes - SURGICAL HISTORY Hx Surgeries: Yes Hx Orthopedic Surgery: Yes (shoulder, lt. leg) - ANESTHESIA Hx Anesthesia: Yes Hx Anesthesia Reactions: No Hx Malignant Hyperthermia: No Meds Allergies/Adverse Reactions: Allergies Allergy/AdvReac Type Severity Reaction Status Date / Time magnesium Allergy Mild RASH Verified 10/08/17 15:06 cat dander Allergy RASH Verified 10/08/17 15:06 liquid tylenol Allergy RASH Uncoded 07/27/17 11:54 seafood Allergy RASH Uncoded 07/27/17 11:54 Physical Exam - Constitutional Appears: No Acute Distress - Head Exam Head Exam: NORMAL INSPECTION Additional comments: contusion around the eye, healing well - Eye Exam Eye Exam: EOMI - ENT Exam ENT Exam: Mucous Membranes Moist - Respiratory Exam Respiratory Exam: Clear to Auscultation Bilateral. absent: Wheezes - Cardiovascular Exam Cardiovascular Exam: REGULAR RHYTHM, +S1, +S2 - GI/Abdominal Exam GI & Abdominal Exam: Distended (mild distension ), Normal Bowel Sounds, Tenderness (tenderness to palpation throughout ). absent: Guarding - Extremities Exam Extremities exam: Positive for: normal inspection. Negative for: calf tenderness, pedal edema Additional comments: tremor of hand b/l when fully extended - Neurological Exam Neurological exam: Alert, Oriented x3 Results - Vital Signs Recent Vital Signs: Last Vital Signs Temp 99.2 F 10/09/17 08:07 Pulse 97 H 10/09/17 08:07 Resp 16 10/09/17 08:07 BP 147/89 10/09/17 08:07 Pulse Ox 95 10/09/17 08:07 - Labs Result Diagrams: 10/09/17 07:47 10/09/17 07:47 Labs: Laboratory Results - last 24 hr 10/08/17 10/08/17 10/08/17 15:50 16:25 18:45 WBC 9.5 RBC 4.24 L Hgb 14.6 Hct 40.7 MCV 96.1 H MCH 34.5 H MCHC 35.9 RDW 14.5 Plt Count 158 MPV 9.5 Neut % (Auto) 80.2 H Lymph % (Auto) 10.6 L Pope % (Auto) 8.5 Eos % (Auto) 0.2 Baso % (Auto) 0.5 Neut # (Auto) 7.6 H Lymph # (Auto) 1.0 Pope # (Auto) 0.8 Eos # (Auto) 0.0 Baso # (Auto) 0.0 pO2 59 H VBG pH 7.40 VBG pCO2 36 L VBG HCO3 23.2 VBG Total CO2 23.4 VBG O2 Sat (Calc) 94.1 H VBG Base Excess -2.0 L VBG Potassium 3.5 L Glucose 123 H Lactate 1.0 FiO2 21.0 Sodium 133 129.0 L Potassium 4.6 Chloride 90 L 93.0 L Carbon Dioxide 21 L Anion Gap 27 H BUN 7 L Creatinine 0.4 L Est GFR ( Amer) > 60 Est GFR (Non-Af Amer) > 60 Random Glucose 129 H Calcium 9.1 Total Bilirubin 2.1 H AST 255 H ALT 192 H D Alkaline Phosphatase 102 Total Protein 9.0 H Albumin 5.0 D Globulin 4.0 H Albumin/Globulin Ratio 1.2 Triglycerides Cholesterol LDL Cholesterol Direct HDL Cholesterol Lipase 2687 H Venous Blood Potassium 3.5 L Alcohol, Quantitative < 10 10/09/17 10/09/17 07:47 07:47 WBC 8.6 RBC 4.17 L Hgb 14.5 Hct 40.4 MCV 96.9 H MCH 34.9 H MCHC 36.0 RDW 14.2 Plt Count 143 MPV Neut % (Auto) Lymph % (Auto) Pope % (Auto) Eos % (Auto) Baso % (Auto) Neut # (Auto) Lymph # (Auto) Pope # (Auto) Eos # (Auto) Baso # (Auto) pO2 VBG pH VBG pCO2 VBG HCO3 VBG Total CO2 VBG O2 Sat (Calc) VBG Base Excess VBG Potassium Glucose Lactate FiO2 Sodium 136 Potassium 4.2 Chloride 96 L Carbon Dioxide 25 Anion Gap 19 BUN 4 L Creatinine 0.5 L Est GFR ( Amer) > 60 Est GFR (Non-Af Amer) > 60 Random Glucose 121 H Calcium 9.1 Total Bilirubin 1.7 H AST 136 H D ALT 141 H D Alkaline Phosphatase 85 Total Protein 7.8 Albumin 4.3 Globulin 3.5 Albumin/Globulin Ratio 1.2 Triglycerides 112 Cholesterol 202 H LDL Cholesterol Direct 100 HDL Cholesterol 61 Lipase Venous Blood Potassium Alcohol, Quantitative Assessment & Plan (1) Abnormal liver enzymes Status: Acute (2) Acute pancreatitis Status: Acute (3) Cholelithiasis Status: Chronic (4) Multiple contusions Status: Acute - Assessment and Plan (Free Text) Assessment: Assessment/Plan: 41 YO Male with PMHx of ETOH abuse, alcoholic pancreatitis and cholelithiasis is admitted for acute ETOH pancreatitis. -VS stable, afebrile -labs reviewed; elevated liver enzymes, improving -plan as ordered -TITI protocol, ativan for withdrawal -CIWA currently 6 -imaging reviewed no acute fractures noted -surgery and GI on board -MRCP pending -continue abx -pain management Pt discussed with Dr. Campbell <Leonel Campbell - Last Filed: 10/09/17 17:33> Results - Vital Signs Recent Vital Signs: Last Vital Signs Temp 98.0 F 10/09/17 15:52 Pulse 100 H 10/09/17 15:52 Resp 19 10/09/17 15:52 BP 128/90 10/09/17 15:52 Pulse Ox 96 10/09/17 15:52 - Labs Result Diagrams: 10/09/17 07:47 10/09/17 07:47 Labs: Laboratory Results - last 24 hr 10/08/17 10/09/17 10/09/17 18:45 07:30 07:47 WBC 8.6 RBC 4.17 L Hgb 14.5 Hct 40.4 MCV 96.9 H MCH 34.9 H MCHC 36.0 RDW 14.2 Plt Count 143 pO2 59 H VBG pH 7.40 VBG pCO2 36 L VBG HCO3 23.2 VBG Total CO2 23.4 VBG O2 Sat (Calc) 94.1 H VBG Base Excess -2.0 L VBG Potassium 3.5 L Sodium 129.0 L Chloride 93.0 L Glucose 123 H Lactate 1.0 FiO2 21.0 Potassium Carbon Dioxide Anion Gap BUN Creatinine Est GFR ( Amer) Est GFR (Non-Af Amer) Random Glucose Hemoglobin A1c 5.5 Calcium Total Bilirubin AST ALT Alkaline Phosphatase Total Protein Albumin Globulin Albumin/Globulin Ratio Triglycerides Cholesterol LDL Cholesterol Direct HDL Cholesterol Vitamin B12 TSH 3rd Generation Venous Blood Potassium 3.5 L 10/09/17 07:47 WBC RBC Hgb Hct MCV MCH MCHC RDW Plt Count pO2 VBG pH VBG pCO2 VBG HCO3 VBG Total CO2 VBG O2 Sat (Calc) VBG Base Excess VBG Potassium Sodium 136 Chloride 96 L Glucose Lactate FiO2 Potassium 4.2 Carbon Dioxide 25 Anion Gap 19 BUN 4 L Creatinine 0.5 L Est GFR ( Amer) > 60 Est GFR (Non-Af Amer) > 60 Random Glucose 121 H Hemoglobin A1c Calcium 9.1 Total Bilirubin 1.7 H AST 136 H D ALT 141 H D Alkaline Phosphatase 85 Total Protein 7.8 Albumin 4.3 Globulin 3.5 Albumin/Globulin Ratio 1.2 Triglycerides 112 Cholesterol 202 H LDL Cholesterol Direct 100 HDL Cholesterol 61 Vitamin B12 839 TSH 3rd Generation 1.66 Venous Blood Potassium Assessment & Plan - Assessment and Plan (Free Text) Assessment: Patient was personally seen and examined by me in rounds with residents. Available labs and diagnostic data reviewed. Case, Patient's condition and management plan discussed with residents in rounds. Agree with resident's progress note. Plan: As ordered.
[2017-10-09] MEDS ORDERED: Sodium Chloride 0.9% 50 ML IV ONE (08:53)
[2017-10-09] MEDS ORDERED: Gadodiamide 287 MG/ML VIAL (15ML) IV ONE (08:53)
[2017-10-09] MEDS ORDERED: HYDROmorphone 0.5 mg/0.5 ml ISec ONE ×3 (09:11→15:42)
[2017-10-09] MEDS: HYDROmorphone 0.5 mg/0.5 ml ISec IVP PRN ×4 (09:13→19:20)
--- NOTE | 2017-10-09 09:17 | CARD ---
APPROVED REPORT Date of service: 10/08/2017 EKG Measurement Heart [id number] <Conclusion> Sinus rhythm with short DC Otherwise normal ECG
--- NOTE | 2017-10-09 09:32 | US ---
Date of service: 10/08/2017 HISTORY: Abdominal pain, gallstones COMPARISON: CT abdomen and pelvis performed earlier the same day TECHNIQUE: Sonographic evaluation of the right upper quadrant of the abdomen. FINDINGS: LIVER: Measures 20.0 cm in length. There is diffuse increased echogenicity of the liver parenchyma. No mass. No intrahepatic bile duct dilatation. GALLBLADDER: There is a 7 mm stone in the region of the neck of the gallbladder. No wall thickening or pericholecystic fluid. The sonographic Dolan's sign is negative. COMMON BILE DUCT: Measures 4.3 mm. No stones. No dilatation. PANCREAS: There is diffuse lower echogenicity in the pancreas with indistinct margins. No mass. No ductal dilatation. RIGHT KIDNEY: Measures 12.9 cm in length. Normal echogenicity. No calculus, mass, or hydronephrosis. AORTA: No aneurysmal dilatation. IVC: Unremarkable. OTHER FINDINGS: None . IMPRESSION: 1. Solitary 7 mm gallstone. 2. Moderate hepatomegaly. Diffuse increased echogenicity in the liver may reflect hepatic steatosis however parenchymal infectious/ inflammatory etiologies cannot be entirely excluded. Clinical and laboratory correlation is advised. 3. Diffuse presumable edema in the pancreas concerning for acute pancreatitis. A preliminary report was provided by [employer] services.
--- NOTE | 2017-10-09 10:14 | CP.PCM.PN ---
Subjective - Date & Time of Evaluation Date of Evaluation: 10/09/17 Time of Evaluation: 10:10 - Subjective Subjective: General Surgery Pt seen and examined this AM. On his way to [facility]. He continues to have abdominal pain. Last ETOH drink 4 days ago. Labs and vitals noted. Bili and LFTs improving. PE Gen: pt laying in bed in mild distress Skin: warm and dry. Pt has multiple areas of ecchymosis on body (bilateral orbits and left arm) Cardio: s1s2 RRR Lungs: CTA bilaterally Abd: Distended, generalized tenderness with the most in epigastric region Extr: (-) calf tenderness bilaterally A/P Pancreatitis, Alcoholic vs gallstone pancreatitis IVF Pain management F/U on MRCP Monitor labs GI following Objective - Vital Signs/Intake and Output Vital Signs (last 24 hours): Temp Pulse Resp BP Pulse Ox 99.2 F 97 H 16 147/89 95 10/09/17 08:07 10/09/17 08:07 10/09/17 08:07 10/09/17 08:07 10/09/17 08:07 - Medications Medications: Current Medications Chlordiazepoxide (Librium) 25 mg PO Q6 [facility] Last Admin: 10/09/17 03:16 Dose: 25 mg Hydromorphone HCl (Dilaudid) 1 mg IVP Q3H PRN PRN Reason: Pain, moderate (4-7) Last Admin: 10/09/17 09:13 Dose: 1 mg Lactated Ringer's (Lactated Ringer's) 1,000 mls @ 150 mls/hr IV .Q6H40M [facility] Last Admin: 10/09/17 06:25 Dose: 150 mls/hr Ciprofloxacin (Cipro 400mg/200ml Dsw) 400 mg in 200 mls @ 200 mls/hr IVPB Q12 MARY PRN Reason: Protocol Last Admin: 10/08/17 20:59 Dose: 200 mls/hr Metronidazole (Flagyl 500mg/100ml Ns) 100 mls @ 100 mls/hr IVPB Q8 MARY PRN Reason: Protocol Last Admin: 10/08/17 20:05 Dose: 100 mls/hr Lorazepam (Ativan) 2 mg IVP Q6 PRN PRN Reason: Agitation Morphine Sulfate (Morphine) 1 mg IVP Q6 PRN PRN Reason: Pain, moderate (4-7) - Labs Labs: 10/09/17 07:47 10/09/17 07:47
[2017-10-09] MEDS ORDERED: Ciprofloxacin 400mg/200ml D5W 400 MG/200 ML BAG IVPB ONE (10:50)
[2017-10-09] MEDS: Ciprofloxacin 400mg/200ml D5W 400 MG/200 ML BAG IVPB SCH ×2 (10:55→22:34)
--- NOTE | 2017-10-09 13:17 | MRI ---
Date of service: 10/09/2017 PROCEDURE: Magnetic Resonance Cholangiopancreatography HISTORY: COMPARISON: None available. TECHNIQUE: Multiplanar, multisequence MR images of the abdomen were obtained, including heavily T2 weighted MRCP images of the biliary system. Rotating maximum intensity projection images of the biliary system were generated. FINDINGS: MRCP: The common bile duct measures 4 mm in diameter. There is no filling defect identified. There is no intrahepatic biliary dilatation. LIVER: Normal size, contour and signal intensity. There are 278 mm lesions in the liver, with characteristic fluid signal possibly small cysts. There is no other mass. There is no biliary dilatation. GALLBLADDER: Unremarkable. SPLEEN: Unremarkable. PANCREAS: No pancreatic mass. No pancreatic ductal dilatation. Peripancreatic fluid/ edema consistent with acute pancreatitis. No ananya localized fluid collection identified. ADRENALS: Unremarkable. KIDNEYS: Unremarkable. AORTA: No aneurysm. ASCITES: None. OTHER FINDINGS: None. IMPRESSION: Findings consistent with acute pancreatitis. No evidence of pancreatic mass, pancreatic necrosis or localized peripancreatic fluid collection. No evidence of cholelithiasis, cholecystitis, choledocholithiasis or biliary obstruction.
[2017-10-09] MEDS: HYDROmorphone 1 mg/ml ISec IVP PRN (22:35)
[2017-10-10] MEDS: metroNIDAZOLE 500mg/100ml NS 100 ML IVPB SCH ×3 (00:37→16:27)
[2017-10-10] MEDS: HYDROmorphone 1 mg/ml ISec IVP PRN ×7 (01:41→21:30)
[2017-10-10 08:03] LABS: HEMOGLOBIN 14.1 g/dL (12.0-18.0); MEAN CELL VOLUME 97.5 fl (80.0-94.0); MEAN CORPUSCULAR HEMOGLOBIN 34.4 pg (27.0-31.0); MEAN CORPUSCULAR HGB CONC 35.3 g/dL (33.0-37.0); RBC 4.09 Mil/uL (4.40-5.90); RED CELL DISTRIBUTION WIDTH 14.4 % (11.5-14.5); WHITE BLOOD COUNT 6.3 K/uL (4.8-10.8)
[2017-10-10] MEDS: Enoxaparin 40 mg Syringe SC SCH (08:16)
[2017-10-10 08:23] LABS: ALB/GLOB RATIO 1.2 (1.0-2.1); ALBUMIN 4.1 g/dL (3.5-5.0); ALT/SGPT 140 U/L (21-72); AMYLASE 60 U/L (30-110); AST/SGOT 162 U/L (17-59); BLOOD UREA NITROGEN 4 mg/dl (9-20); CALCIUM 9.4 mg/dL (8.4-10.2); GFR AFRICAN-AMERICAN > 60; GFR NON-AFRICAN AMERICAN > 60; LIPASE 258 U/L (23-300)
[2017-10-10] MEDS: Ciprofloxacin 400mg/200ml D5W 400 MG/200 ML BAG IVPB SCH ×2 (09:30→21:31)
--- NOTE | 2017-10-10 09:31 | CP.PCM.PN ---
Subjective - Date & Time of Evaluation Date of Evaluation: 10/10/17 Time of Evaluation: 09:28 - Subjective Subjective: General Surgery Pt seen and examined this AM. Pt continues to have abdominal pain. He reports he had some clears this AM and his abdominal pain worsened. MRCP completed and (+) pancreatitis, (-) cholecystitis, (-) cholelithiasis, (-) choledocolithiasis , and (-) biliary obstruction. Labs and vitals noted. PE Gen: Pt laying in bed in NAD Skin: warm and dry Cardio: S1S2 RRR Lungs: CTA bilaterally Abd: (+) generalized tenderness, (+) distended, (+) mildly firm Extr: (-) calf tenderness bilaterally A/P Alcoholic Pancreatitis Pt advised to not drink liquids or eat if he continues to have pain Continue IVF No surgical intervention at this time Pt discharged from general surgery service Objective - Vital Signs/Intake and Output Vital Signs (last 24 hours): Temp Pulse Resp BP Pulse Ox 98.8 F 95 H 20 138/93 H 96 10/10/17 08:00 10/10/17 08:00 10/10/17 08:00 10/10/17 08:00 10/10/17 08:00 - Medications Medications: Current Medications Chlordiazepoxide (Librium) 25 mg PO Q6 [facility] Last Admin: 10/10/17 04:38 Dose: 25 mg Enoxaparin Sodium (Lovenox) 40 mg SC DAILY MARY PRN Reason: Protocol Last Admin: 10/10/17 08:16 Dose: 40 mg Hydromorphone HCl (Dilaudid) 1 mg IVP Q3H PRN PRN Reason: Pain, moderate (4-7) Last Admin: 10/10/17 08:08 Dose: 1 mg Lactated Ringer's (Lactated Ringer's) 1,000 mls @ 150 mls/hr IV .Q6H40M MARY Last Admin: 10/09/17 14:19 Dose: 150 mls/hr Ciprofloxacin (Cipro 400mg/200ml Dsw) 400 mg in 200 mls @ 200 mls/hr IVPB Q12 MARY PRN Reason: Protocol Last Admin: 10/09/17 22:34 Dose: 200 mls/hr Metronidazole (Flagyl 500mg/100ml Ns) 100 mls @ 100 mls/hr IVPB Q8 MARY PRN Reason: Protocol Last Admin: 10/10/17 08:15 Dose: 100 mls/hr Lorazepam (Ativan) 2 mg IVP Q6 PRN PRN Reason: Agitation Ondansetron HCl (Zofran Inj) 4 mg IVP Q6 PRN PRN Reason: Nausea/Vomiting Last Admin: 10/09/17 13:27 Dose: 4 mg - Labs Labs: 10/10/17 07:55 10/10/17 07:55
--- NOTE | 2017-10-10 09:36 | CP.PCM.PN ---
<Rashaun Singh - Last Filed: 10/10/17 13:26> Subjective - Date & Time of Evaluation Date of Evaluation: 10/10/17 Time of Evaluation: 09:34 - Subjective Subjective: GI Fellow PGY4, Progress note. Patient is afeb/hds. No acute overnight events. Tolerating clear liquid diet with minimal nausea and no vomiting. Abdominal Pain is improving. Admits passing flatus. No BMs. Denies fever. 12pt ROS completed and negative except for above. Objective - Vital Signs/Intake and Output Vital Signs (last 24 hours): Temp Pulse Resp BP Pulse Ox 98.8 F 95 H 20 138/93 H 96 10/10/17 08:00 10/10/17 08:00 10/10/17 08:00 10/10/17 08:00 10/10/17 08:00 - Medications Medications: Current Medications Chlordiazepoxide (Librium) 25 mg PO Q6 [facility] Last Admin: 10/10/17 04:38 Dose: 25 mg Enoxaparin Sodium (Lovenox) 40 mg SC DAILY MARY PRN Reason: Protocol Last Admin: 10/10/17 08:16 Dose: 40 mg Hydromorphone HCl (Dilaudid) 1 mg IVP Q3H PRN PRN Reason: Pain, moderate (4-7) Last Admin: 10/10/17 08:08 Dose: 1 mg Lactated Ringer's (Lactated Ringer's) 1,000 mls @ 150 mls/hr IV .Q6H40M [facility] Last Admin: 10/09/17 14:19 Dose: 150 mls/hr Ciprofloxacin (Cipro 400mg/200ml Dsw) 400 mg in 200 mls @ 200 mls/hr IVPB Q12 MARY PRN Reason: Protocol Last Admin: 10/10/17 09:30 Dose: 200 mls/hr Metronidazole (Flagyl 500mg/100ml Ns) 100 mls @ 100 mls/hr IVPB Q8 MARY PRN Reason: Protocol Last Admin: 10/10/17 08:15 Dose: 100 mls/hr Lorazepam (Ativan) 2 mg IVP Q6 PRN PRN Reason: Agitation Ondansetron HCl (Zofran Inj) 4 mg IVP Q6 PRN PRN Reason: Nausea/Vomiting Last Admin: 10/09/17 13:27 Dose: 4 mg - Labs Labs: 10/10/17 07:55 10/10/17 07:55 - Constitutional Appears: Non-toxic, No Acute Distress - Head Exam Head Exam: absent: ATRAUMATIC - Eye Exam Eye Exam: EOMI, Periorbital swelling, PERRL - ENT Exam ENT Exam: Normal Exam - Respiratory Exam Respiratory Exam: Clear to Ausculation Bilateral, NORMAL BREATHING PATTERN. absent: Wheezes - Cardiovascular Exam Cardiovascular Exam: REGULAR RHYTHM, +S1, +S2 - GI/Abdominal Exam GI & Abdominal Exam: Distended, Tenderness, Hypoactive Bowel Sounds - Extremities Exam Extremities Exam: Normal Inspection - Neurological Exam Neurological Exam: Alert, Awake, Oriented x3 - Psychiatric Exam Psychiatric exam: Depressed, Normal Affect, Normal Mood - Skin Skin Exam: Dry, Normal Color Assessment and Plan - Assessment and Plan (Free Text) Assessment: 41M with hx of recurrent alcoholic pancreatitis presenting with acute pancreatitis likely due to alcohol. #Acute pancreatitis - likely alcohol, possibly gallstone related. #Cholelithiasis #Alcohol dependence #Abnormal liver enzymes #Hepatosteatosis #High anion gap Plan: -Afeb/HDS -Continue supportive care -MRCP results noted and grossly normal except for small liver cysts. -Continue LR IVF until able to tolerate diet without any nausea/vomiting/pain. -Surgery evaluation noted. -Defer to surgical team on ?lap makenzie. -Monitor CIWA closely for alcohol w/d. Continue scheduled Librium -Continue low fat, clear liquids. NPO if it causes pain, nausea, vomiting -No planned procedures <Kourtney Meadows - Last Filed: 10/10/17 14:43> Objective - Vital Signs/Intake and Output Vital Signs (last 24 hours): Temp Pulse Resp BP Pulse Ox 98.6 F 89 20 124/85 93 L 10/10/17 12:00 10/10/17 12:00 10/10/17 12:00 10/10/17 12:00 10/10/17 12:00 - Medications Medications: Current Medications Chlordiazepoxide (Librium) 25 mg PO Q6 [facility] Last Admin: 10/10/17 11:39 Dose: 25 mg Enoxaparin Sodium (Lovenox) 40 mg SC DAILY [facility] PRN Reason: Protocol Last Admin: 10/10/17 08:16 Dose: 40 mg Hydromorphone HCl (Dilaudid) 1 mg IVP Q3H PRN PRN Reason: Pain, moderate (4-7) Last Admin: 10/10/17 11:39 Dose: 1 mg Lactated Ringer's (Lactated Ringer's) 1,000 mls @ 150 mls/hr IV .Q6H40M MARY Last Admin: 10/09/17 14:19 Dose: 150 mls/hr Ciprofloxacin (Cipro 400mg/200ml Dsw) 400 mg in 200 mls @ 200 mls/hr IVPB Q12 MARY PRN Reason: Protocol Last Admin: 10/10/17 09:30 Dose: 200 mls/hr Metronidazole (Flagyl 500mg/100ml Ns) 100 mls @ 100 mls/hr IVPB Q8 MARY PRN Reason: Protocol Last Admin: 10/10/17 08:15 Dose: 100 mls/hr Lorazepam (Ativan) 2 mg IVP Q6 PRN PRN Reason: Agitation Ondansetron HCl (Zofran Inj) 4 mg IVP Q6 PRN PRN Reason: Nausea/Vomiting Last Admin: 10/09/17 13:27 Dose: 4 mg - Labs Labs: 10/10/17 07:55 10/10/17 07:55 Attending/Attestation - Attestation I have personally seen and examined this patient.: Yes I have fully participated in the care of the patient.: Yes I have reviewed all pertinent clinical information, including history, physical exam and plan: Yes Notes (Text): 10/10/17 14:42 This is a 41 yr old M with history of recurrent alcoholic pancreatitis presenting with acute pancreatitis likely due to alcohol and history of chronic cholelithiasis. Biochemically no evidence of dehydration. Supportive care. Advance diet to low fat. Alcohol withdrawl protocol. Electrolyte supplement
--- NOTE | 2017-10-10 14:08 | PN ---
Copied To: Leonel Campbell MD Attending MD: Leonel Campbell MD DATE: 10/10/2017 SUBJECTIVE: The patient seen and examined. Interim events noted. Consults noted and appreciated. The patient remains in regular progressive care unit with telemetry monitoring, awake, responsive, still complains of significant abdominal pain, but tolerating diet. He does not complain of nausea, vomiting, or diarrhea. PHYSICAL EXAMINATION: GENERAL: The patient is in no acute distress. VITAL SIGNS: Stable. HEART: S1 and S2, normal and regular. LUNGS: Good bilateral air exchange. ABDOMEN: Soft and nontender. EXTREMITIES: No edema. No calf swelling. No tenderness. No acute ischemia. SUPERVISOR TESTING: Exam is essentially unchanged. No sign of acute abdomen. No guarding. No rigidity. No rebound. Bowel sounds are normal. DIAGNOSTIC DATA: Available diagnostic data reviewed. Lipase level is still pending. Telemetry monitoring does not reveal significant arrhythmias. ASSESSMENT AND PLAN: Overall, the patient's general medical condition is stable. Plan as ordered. Leonel Campbell MD
[2017-10-10] MEDS: Lactated Ringer's 1,000 ML IV SCH (21:29)
[2017-10-11] MEDS: HYDROmorphone 0.5 mg/0.5 ml ISec IVP PRN ×8 (01:01→23:45)
[2017-10-11] MEDS: metroNIDAZOLE 500mg/100ml NS 100 ML IVPB SCH ×3 (01:02→17:31)
[2017-10-11 05:30] LABS: HEMOGLOBIN 13.7 g/dL (12.0-18.0); MEAN CELL VOLUME 98.9 fl (80.0-94.0); MEAN CORPUSCULAR HEMOGLOBIN 34.5 pg (27.0-31.0); MEAN CORPUSCULAR HGB CONC 34.8 g/dL (33.0-37.0); RBC 3.98 Mil/uL (4.40-5.90); RED CELL DISTRIBUTION WIDTH 14.4 % (11.5-14.5)
[2017-10-11 07:20] LABS: ALB/GLOB RATIO 1.2 (1.0-2.1); ALBUMIN 3.9 g/dL (3.5-5.0); ALT/SGPT 205 U/L (21-72); AMYLASE 45 U/L (30-110); AST/SGOT 240 U/L (17-59); BLOOD UREA NITROGEN 4 mg/dl (9-20); CALCIUM 9.4 mg/dL (8.4-10.2); GFR AFRICAN-AMERICAN > 60; GFR NON-AFRICAN AMERICAN > 60; LIPASE 150 U/L (23-300)
[2017-10-11] MEDS: Ciprofloxacin 400mg/200ml D5W 400 MG/200 ML BAG IVPB SCH ×2 (08:11→20:36)
[2017-10-11] MEDS: Enoxaparin 40 mg Syringe SC SCH (10:56)
--- NOTE | 2017-10-11 13:58 | PN ---
Copied To: Leonel Campbell MD Attending MD: Leonel Campbell MD DATE: 10/11/2017 SUBJECTIVE: The patient seen and examined. Interim events noted. Consults noted and appreciated. Gastroenterology and Surgery followup and intervention noted and appreciated. The patient tolerated diet well. No nausea or vomiting, but the patient still has significant abdominal pain. PHYSICAL EXAMINATION: GENERAL: The patient is in no acute distress. VITAL SIGNS: Stable. HEART: S1 and S2. Normal and regular. LUNGS: Good bilateral air exchange. ABDOMEN: Soft and nontender. EXTREMITIES: No edema. No calf swelling. No tenderness. No acute ischemia. OUTCOMES ANALYST: Exam is essentially unchanged. DIAGNOSTIC DATA: Available diagnostic data reviewed. Amylase and lipase levels are now normal. ASSESSMENT AND PLAN: Overall, the patient's general medical condition is stable and improving, although still has significant abdominal pain, but no sign of acute abdomen. Plan as ordered. Overall, the patient is clinically stable and improving. Plan as ordered. Leonel Campbell MD
[2017-10-11] MEDS: Lactated Ringer's 1,000 ML IV SCH (21:50)
[2017-10-12] MEDS: metroNIDAZOLE 500mg/100ml NS 100 ML IVPB SCH ×3 (01:09→17:30)
[2017-10-12] MEDS: Lactated Ringer's 1,000 ML IV SCH (01:14)
[2017-10-12] MEDS: HYDROmorphone 0.5 mg/0.5 ml ISec IVP PRN (03:08)
[2017-10-12] MEDS: HYDROmorphone 1 mg/ml ISec IVP PRN ×4 (06:28→16:05)
[2017-10-12 08:13] VITALS: RESP 20
[2017-10-12] MEDS: Enoxaparin 40 mg Syringe SC SCH (09:09)
[2017-10-12] MEDS: Ciprofloxacin 400mg/200ml D5W 400 MG/200 ML BAG IVPB SCH (09:10)
[2017-10-12] MEDS: Lactated Ringer's 500 ML IV SCH ×2 (09:16→14:27)
--- NOTE | 2017-10-12 11:51 | CP.PCM.DIS ---
Provider - Provider Date of Admission: 10/08/17 18:39 Attending physician: Leonel Campbell MD Primary care physician: Mayra Snider Consults: GI Dr. Meadows Gen Surg Dr. Spence Time Spent in preparation of Discharge (in minutes): 30 Diagnosis - Discharge Diagnosis (1) Acute pancreatitis Status: Acute Hospital Course - Lab Results Lab Results: Most Recent Lab Values WBC 5.0 K/uL (4.8-10.8) 10/11/17 05:05 RBC 3.98 Mil/uL (4.40-5.90) L 10/11/17 05:05 Hgb 13.7 g/dL (12.0-18.0) 10/11/17 05:05 Hct 39.4 % (35.0-51.0) 10/11/17 05:05 MCV 98.9 fl (80.0-94.0) H 10/11/17 05:05 MCH 34.5 pg (27.0-31.0) H 10/11/17 05:05 MCHC 34.8 g/dL (33.0-37.0) 10/11/17 05:05 RDW 14.4 % (11.5-14.5) 10/11/17 05:05 Plt Count 132 K/uL (130-400) 10/11/17 05:05 MPV 9.5 fl (7.2-11.7) 10/08/17 15:50 Neut % (Auto) 80.2 % (50.0-75.0) H 10/08/17 15:50 Lymph % (Auto) 10.6 % (20.0-40.0) L 10/08/17 15:50 [place] % (Auto) 8.5 % (0.0-10.0) 10/08/17 15:50 Eos % (Auto) 0.2 % (0.0-4.0) 10/08/17 15:50 Baso % (Auto) 0.5 % (0.0-2.0) 10/08/17 15:50 Neut # (Auto) 7.6 K/uL (1.8-7.0) H 10/08/17 15:50 Lymph # (Auto) 1.0 K/uL (1.0-4.3) 10/08/17 15:50 [place] # (Auto) 0.8 K/uL (0.0-0.8) 10/08/17 15:50 Eos # (Auto) 0.0 K/uL (0.0-0.7) 10/08/17 15:50 Baso # (Auto) 0.0 K/uL (0.0-0.2) 10/08/17 15:50 pO2 59 mm/Hg (30-55) H 10/08/17 18:45 VBG pH 7.40 (7.32-7.43) 10/08/17 18:45 VBG pCO2 36 mmHg (40-60) L 10/08/17 18:45 VBG HCO3 23.2 mmol/L 10/08/17 18:45 VBG Total CO2 23.4 mmol/L (22-28) 10/08/17 18:45 VBG O2 Sat (Calc) 94.1 % (40-65) H 10/08/17 18:45 VBG Base Excess -2.0 mmol/L (0.0-2.0) L 10/08/17 18:45 VBG Potassium 3.5 mmol/L (3.6-5.2) L 10/08/17 18:45 Sodium 129.0 mmol/L (132-148) L 10/08/17 18:45 Chloride 93.0 mmol/L (98-107) L 10/08/17 18:45 Glucose 123 mg/dL (75-110) H 10/08/17 18:45 Lactate 1.0 mmol/L (0.7-2.1) 10/08/17 18:45 FiO2 21.0 % 10/08/17 18:45 Sodium 138 mmol/l (132-148) 10/11/17 05:05 Potassium 4.0 MMOL/L (3.6-5.0) 10/11/17 05:05 Chloride 98 mmol/L (98-107) 10/11/17 05:05 Carbon Dioxide 31 mmol/L (22-30) H 10/11/17 05:05 Anion Gap 13 (10-20) 10/11/17 05:05 BUN 4 mg/dl (9-20) L 10/11/17 05:05 Creatinine 0.5 mg/dl (0.8-1.5) L 10/11/17 05:05 Est GFR ( Amer) > 60 10/11/17 05:05 Est GFR (Non-Af Amer) > 60 10/11/17 05:05 Random Glucose 113 mg/dL (75-110) H 10/11/17 05:05 Hemoglobin A1c 5.5 % (4.2-6.5) 10/09/17 07:30 Calcium 9.4 mg/dL (8.4-10.2) 10/11/17 05:05 Phosphorus 3.7 mg/dl (2.5-4.5) 10/11/17 05:05 Magnesium 1.6 MG/DL (1.6-2.3) 10/11/17 05:05 Total Bilirubin 1.4 mg/dl (0.2-1.3) H 10/11/17 05:05 AST 240 U/L (17-59) H D 10/11/17 05:05 ALT 205 U/L (21-72) H D 10/11/17 05:05 Alkaline Phosphatase 108 U/L (38-126) 10/11/17 05:05 Total Protein 7.3 G/DL (6.3-8.2) 10/11/17 05:05 Albumin 3.9 g/dL (3.5-5.0) 10/11/17 05:05 Globulin 3.4 gm/dL (2.2-3.9) 10/11/17 05:05 Albumin/Globulin Ratio 1.2 (1.0-2.1) 10/11/17 05:05 Triglycerides 112 mg/DL (0-149) 10/09/17 07:47 Cholesterol 202 mg/dL (0-199) H 10/09/17 07:47 LDL Cholesterol Direct 100 mg/dL (0-129) 10/09/17 07:47 HDL Cholesterol 61 MG/DL (30-70) 10/09/17 07:47 Amylase 45 U/L (30-110) 10/11/17 05:05 Lipase 150 U/L (23-300) 10/11/17 05:05 Vitamin B12 839 pg/mL (239-931) 10/09/17 07:47 TSH 3rd Generation 1.66 mIU/ML (0.46-4.68) 10/09/17 07:47 Venous Blood Potassium 3.5 mmol/L (3.6-5.2) L 10/08/17 18:45 Alcohol, Quantitative < 10 mg/dl (0-10) 10/08/17 16:25 - Hospital Course Hospital Course: 41 yo M w/ hx alcohol abuse, cholelithiasis and recurrent pancreatitis was admitted due to abdominal pain and episode of pancreatitis. On admission his lipase was elevated; he was hydrated with LR and made NPO; surgery and GI were consulted. Pt underwent MRCP which showed no evidence of pancreatic mass, necrosis, or localized peripancreatic collection; no evidence of cholecystitis, choledocholithiasis, or biliary obstruction. Lipase trended down to normal range and biochemically pt did not show signs of dehydration. Tolerated liquid diet and pain improved. Was seen by gen surg who did not advise any surgical intervention at this point, and GI who have cleared pt for d/c as well. Seen this morning on rounds with Dr. Campbell. Reports that he tolerated liquid and some solids. Pt strongly advised to avoid alcohol intake to prevent aggravation of symptoms as well as overall health decline. Discharge Exam - Head Exam Head Exam: absent: ATRAUMATIC - Eye Exam Eye Exam: Normal appearance - ENT Exam ENT Exam: Mucous Membranes Moist - Respiratory Exam Respiratory Exam: NORMAL BREATHING PATTERN - Cardiovascular Exam Cardiovascular Exam: REGULAR RHYTHM - GI/Abdominal Exam GI & Abdominal Exam: Soft, Tenderness (mild) - Extremities Exam Extremities exam: normal inspection - Skin Skin Exam: Dry, Warm Discharge Plan - Discharge Medications Prescriptions: Ciprofloxacin HCl [Cipro] 500 mg PO BID #10 tablet Metronidazole [Flagyl] 500 mg PO Q8 #15 tablet - Follow Up Plan Condition: FAIR Disposition: HOME/ ROUTINE Additional Instructions: pt. cleared for discharge to Home today by and Rx for meds provided f/u with pmd in 1 week Referrals: Mayra Zamora MD [Medical Doctor] -
[2017-10-12 15:32] VITALS: BP 126/81; PULSE 80; TEMP 98.4; O2SAT 96
== END 2017-10-12 18:00 | disposition home or self-care (01) | DRG 204 ==
LOC: H.ER 14:46 → H.ERHOLD 18:39 → H.TEL 10-09 17:38
PROVIDERS: ADMIT Internal Medicine; ATTEND Internal Medicine
DX: K85.20 Alcohol induced acute pancreatitis without necrosis or infection (principal); F10.239 Alcohol dependence with withdrawal, unspecified; K76.0 Fatty (change of) liver, not elsewhere classified; K80.20 Calculus of gallbladder without cholecystitis without obstruction; K86.0 Alcohol-induced chronic pancreatitis; I10 Essential (primary) hypertension; J45.909 Unspecified asthma, uncomplicated; F32.9 Major depressive disorder, single episode, unspecified; F41.9 Anxiety disorder, unspecified; M19.90 Unspecified osteoarthritis, unspecified site; F17.210 Nicotine dependence, cigarettes, uncomplicated; Z91.81 History of falling; Z91.013 Allergy to seafood

== ENCOUNTER 2017-12-24 15:12 | Inpatient (IN) | payer MEDICAID ==
[2017-12-24 15:12] VITALS: BMI 37.1
[2017-12-24] MEDS ORDERED: Sodium Chloride 0.9% 1,000 ML IV STA ×2 (15:41→19:15)
[2017-12-24 16:08] LABS: BASO % 0.2 % (0.0-2.0); EOS # 0.1 K/uL (0.0-0.7); EOS % 0.9 % (0.0-4.0); HEMOGLOBIN 16.3 g/dL (12.0-18.0); LYMPH # 5.1 K/uL (1.0-4.3); LYMPH % 33.6 % (20.0-40.0); MEAN CELL VOLUME 97.6 fl (80.0-94.0); MEAN CORPUSCULAR HEMOGLOBIN 34.4 pg (27.0-31.0); MEAN CORPUSCULAR HGB CONC 35.3 g/dL (33.0-37.0); MEAN PLATELET VOLUME 8.1 fl (7.2-11.7); MONO # 1.1 K/uL (0.0-0.8); MONO % 7.2 % (0.0-10.0); NEUT # 8.9 K/uL (1.8-7.0); NEUT % 58.1 % (50.0-75.0); RBC 4.73 Mil/uL (4.40-5.90); RED CELL DISTRIBUTION WIDTH 13.6 % (11.5-14.5)
[2017-12-24 16:12] LABS: VENOUS BLOOD GAS PCO2 44 mmHg (40-60); VENOUS BLOOD GAS PO2 45 mm/Hg (30-55)
[2017-12-24 16:15] LABS: WHITE BLOOD COUNT 15.2 K/uL (4.8-10.8)
[2017-12-24 16:22] LABS: ACETAMINOPHEN < 10.0 ug/ml (10.0-30.0); SALICYLATE < 1.0 mg/dl
[2017-12-24 16:26] LABS: ALBUMIN 4.8 g/dL (3.5-5.0); ALT/SGPT 114 U/L (21-72); AST/SGOT 131 U/L (17-59); BLOOD UREA NITROGEN 5 mg/dl (9-20); CALCIUM 8.7 mg/dL (8.4-10.2); GFR NON-AFRICAN AMERICAN > 60; LIPASE 31 U/L (23-300)
--- NOTE | 2017-12-24 16:35 | ED PDOC ---
HPI: Psych/Substance Abuse Time Seen by Provider: 12/24/17 15:25 Chief Complaint (Nursing): Substance Abuse Chief Complaint (Provider): Substance Abuse ED Caveat: Altered Mental Status History Per: Family History/Exam Limitations: no limitations Onset/Duration Of Symptoms: Days Current Symptoms Are (Timing): Still Present Suicide/Self Injury Attempted (Context): Ingestion Modifying Factor(s): Alcohol Additional Complaint(s): 42 y/o male with a PMHx of alcoholism, pancreatitis and HTN brought in by family after possible overdose on sleeping medications. Patient reported to the brother and father that he wanted to kill himself. Patient reports of drinking heavily today. Patient additionally reports he took multiple tablets of Ambien 10 mg. Brother reports patient may have taken up to four tablets of the ambien. Unable to get reliable history from patient due to intoxication and agitation. Family denies that the patient does any drug. At this time, it is unknown when the tablets were taken. When asked, family reports patient has been drinking for "weeks". PMD: Dr. Mayra Zamora Past Medical History Reviewed: Historical Data, Nursing Documentation, Vital Signs Vital Signs: Last Vital Signs Temp 98.4 F 12/24/17 15:20 Pulse 119 H 12/24/17 15:20 Resp 16 12/24/17 15:20 BP 120/80 12/24/17 15:20 Pulse Ox 95 12/24/17 15:20 - Medical History PMH: Anxiety, Arthritis (as per CT results), Asthma (pt reports hx. Asthna, no meds), Fractures (L shoulder Fx), HTN, Pancreatitis Denies: COPD, HIV, Chronic Kidney Disease - Family History Family History: States: Hypertension - Social History Current smoker - smoking cessation education provided: Yes Alcohol: > 2 Drinks/Day Drugs: Denies - Immunization History Hx Influenza Vaccination: (unk) Hx Pneumococcal Vaccination: (unk) - Allergies Allergies/Adverse Reactions: Allergies Allergy/AdvReac Type Severity Reaction Status Date / Time magnesium Allergy Mild RASH Verified 12/24/17 15:19 cat dander Allergy RASH Verified 12/24/17 15:19 shrimp Allergy RASH Verified 12/24/17 15:19 liquid tylenol Allergy RASH Uncoded 12/24/17 15:19 Review of Systems Review Of Systems: ROS cannot be obtained secondary to pt's inabilty to answer questions. Physical Exam - Reviewed Nursing Documentation Reviewed: Yes Vital Signs Reviewed: Yes - Physical Exam Appears: Positive for: In Acute Distress (Psychiatric and neurologic. Patient additionally appears aggitated disheveled. ) Head Exam: Positive for: ATRAUMATIC, NORMOCEPHALIC Skin: Positive for: Warm, Dry, Pallor Eye Exam: Positive for: EOMI, PERRL, Nystagmus ENT: Positive for: Other (Dry Mucous Membranes) Neck: Positive for: Painless ROM Cardiovascular/Chest: Positive for: Tachycardia Respiratory: Positive for: Normal Breath Sounds. Negative for: Respiratory Distress Gastrointestinal/Abdominal: Positive for: Soft. Negative for: Tenderness Back: Positive for: Normal Inspection. Negative for: Decreased ROM Extremity: Positive for: Normal ROM. Negative for: Deformity Lymphatic: Negative for: Adenopathy Neurologic/Psych: Positive for: Alert, Oriented (x1), Other (Mild slurred speech ). Negative for: Motor/Sensory Deficits - Laboratory Results Result Diagrams: 12/26/17 04:50 12/26/17 04:50 - ECG O2 Sat by Pulse Oximetry: 95 (RA) Pulse Ox Interpretation: Normal Medical Decision Making Medical Decision Making: Time: 1603 Impression: Altered Mental Status Differentials alcohol intoxication, alcohol withdrawal, sedative overdose, dehydration, suicide attempt and depression. -- VBG -- EKG -- Acetaminophen -- Alcohol Serum -- Ammonia -- CMP -- Urine Drug Screen -- LDH -- Lipase -- Magnesium -- Phosphorus -- Salicylate -- ED Urine Dipstick -- CBC with Differentials -- PTT -- Prothrombin Time -- CXR Portable -- Lorazepam 2 mg IVP -- Sodium Chloride IV 1000 mls/hr -- Turner Machine -- IV Insertion -- 1:1 Observation -- Glucose, Blood POC -- Urinary Straight Catheterization -- Restraints -- Discussed with poison center, Amada Mullen who advises benzos as needed for agitation, monitor for EKG changes and typical overdose and tox workup for co- ingestions. -- Patient has been given Ativan for acute agitation and restraints for agitation and violent behavior. --1900 Pt sleepy but frequently attempts to get up from bed. -- Labs demonstrate elevated lactic acid and leukocytosis. Likely acute inflammatory reaction, no source for fever. BAL elevated. --DW Dr Campbell for PMKana Zamora Scribe Attestation: Documented by Shanell Hamilton, acting as a scribe for Maria De Jesus Navarrete MD. Provider Scribe Attestation: All medical record entries made by the Scribe were at my direction and personally dictated by me. I have reviewed the chart and agree that the record accurately reflects my personal performance of the history, physical exam, medical decision making, and the department course for this patient. I have also personally directed, reviewed, and agree with the discharge instructions and disposition. Disposition - Clinical Impression Clinical Impression: Alcohol intoxication, Suicide attempt, Sedative or hypnotic overdose - Disposition Disposition Time: 20:00 Condition: GUARDED - Pt Status Changed To: Hospital Disposition Of: Inpatient - Admit Certification Admit to Inpatient:: After my assessment, the patient will require hospitalization for at least two midnights. This is because of the severity of symptoms shown, intensity of services needed, and/or the medical risk in this patient being treated as an outpatient. - POA Present On Arrival: None
--- NOTE | 2017-12-24 17:38 | RAD ---
Date of service: 12/24/2017 HISTORY: Overdose. COMPARISON: 07/27/2017 FINDINGS: LUNGS: No active pulmonary disease. PLEURA: No significant pleural effusion identified, no pneumothorax apparent. CARDIOVASCULAR: Normal. OSSEOUS STRUCTURES: No significant abnormalities. VISUALIZED UPPER ABDOMEN: Normal. OTHER FINDINGS: None. IMPRESSION: No active disease. No significant interval change compared to the prior examination(s).
[2017-12-24] MEDS ORDERED: Multivitamin (MVI) 10 ML, Thiamine 100 MG, Folic Acid 1 MG in Sodium Chloride 0.9% 1,00... IV ONE (19:15)
[2017-12-24 19:21] LABS: BARBITURATES, UR NEGATIVE (NEGATIVE); BENZODIAZEPINES, UR NEGATIVE (NEGATIVE); OPIATES, UR NEGATIVE (NEGATIVE); PHENCYCLIDINE, UR NEGATIVE (NEGATIVE)
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
[2017-12-25] MEDS: Enoxaparin 40 mg Syringe SC SCH (08:43)
--- NOTE | 2017-12-25 09:08 | CARD ---
APPROVED REPORT Date of service: 12/25/2017 EKG Measurement Heart [id number] <Conclusion> Normal sinus rhythm Normal ECG
--- NOTE | 2017-12-25 09:24 | CARD ---
APPROVED REPORT Date of service: 12/24/2017 EKG Measurement Heart [id number] <Conclusion> Sinus tachycardia Otherwise normal ECG
[2017-12-25 10:12] LABS: MEAN CELL VOLUME 98.4 fl (80.0-94.0); MEAN CORPUSCULAR HEMOGLOBIN 34.5 pg (27.0-31.0); MEAN CORPUSCULAR HGB CONC 35.1 g/dL (33.0-37.0); RBC 4.05 Mil/uL (4.40-5.90); RED CELL DISTRIBUTION WIDTH 13.3 % (11.5-14.5); WHITE BLOOD COUNT 6.9 K/uL (4.8-10.8)
[2017-12-25 10:50] LABS: ALBUMIN 3.9 g/dL (3.5-5.0); ALT/SGPT 101 U/L (21-72); AST/SGOT 100 U/L (17-59); BLOOD UREA NITROGEN 4 mg/dl (9-20); CALCIUM 8.3 mg/dL (8.4-10.2); GFR NON-AFRICAN AMERICAN > 60
[2017-12-25] MEDS: Sodium Chloride 0.9% 1,000 ML IV SCH (12:50)
[2017-12-25] MEDS: Pantoprazole 40 mg EC Tab PO SCH (14:29)
[2017-12-26] MEDS: Sodium Chloride 0.9% 1,000 ML IV SCH (01:47)
[2017-12-26 05:30] LABS: HEMOGLOBIN 14.9 g/dL (12.0-18.0); MEAN CELL VOLUME 97.6 fl (80.0-94.0); MEAN CORPUSCULAR HGB CONC 35.9 g/dL (33.0-37.0); RBC 4.26 Mil/uL (4.40-5.90); RED CELL DISTRIBUTION WIDTH 13.1 % (11.5-14.5); WHITE BLOOD COUNT 7.3 K/uL (4.8-10.8)
[2017-12-26 05:54] LABS: ALB/GLOB RATIO 1.1 (1.0-2.1); ALBUMIN 4.1 g/dL (3.5-5.0); ALT/SGPT 88 U/L (21-72); AST/SGOT 89 U/L (17-59); BLOOD UREA NITROGEN 5 mg/dl (9-20); CALCIUM 8.8 mg/dL (8.4-10.2); GFR NON-AFRICAN AMERICAN > 60
[2017-12-26] MEDS: Pantoprazole 40 mg EC Tab PO SCH (08:20)
[2017-12-26] MEDS: Enoxaparin 40 mg Syringe SC SCH (08:20)
--- NOTE | 2017-12-26 11:36 | PN ---
DATE: 12/26/2017 SUBJECTIVE: The patient seen and examined. Interim events noted. The patient remains in progressive care unit on telemetry monitoring with one to one observation for safety. Consults noted and appreciated. Psychiatric followup and intervention noted and appreciated. The patient is recommended for screening for involuntary inpatient psych treatment as the patient is not agreeable to treatment on voluntary basis. The patient complains of abdominal discomfort. No chest pain. No shortness of breath. No signs of withdrawal. PHYSICAL EXAMINATION: GENERAL: The patient is in no acute distress. VITAL SIGNS: Stable. HEART EXAM: S1 and S2. Normal and regular. LUNGS: Good bilateral air exchange. ABDOMEN: Soft and nontender. No organomegaly. No thrills. Bowel sounds are plus and normal. No guarding. No rigidity. No rebound. No sign of acute abdomen. EXTREMITY EXAM: No edema. No calf swelling. No tenderness. No acute ischemia. DROP COUNT ASSOCIATE EXAM: Essentially unchanged. DIAGNOSTIC DATA: Available diagnostic data reviewed. Telemetry monitoring does not show significant arrhythmias. ASSESSMENT AND PLAN: Plan as ordered. Case and plan discussed with the patient. Leonel Campbell MD
--- NOTE | 2017-12-26 12:54 | HP ---
CHIEF COMPLAINT: Drug overdose. HISTORY OF PRESENT ILLNESS: This is a 42-year-old male known case of alcohol abuse with multiple admissions to this hospital, who apparently was feeling bad and wanted to kill himself, so took multiple doses of sleeping pill, Ambien and excessive amount of alcohol, although the patient is denying taking extra Ambien. The patient says that he only took one Ambien as described. According to brother, the patient took at least 4 and excessive amount of alcohol. REVIEW OF SYSTEMS: At this time is negative for headache, dizziness, syncope, loss of consciousness, chest pain, shortness of breath, nausea, vomiting, diarrhea, constipation, any new joint or extremity pain. Review of systems of all other organ system is unremarkable. PAST MEDICAL HISTORY: Significant for alcohol abuse. PERSONAL HISTORY: The patient is currently heavy alcohol abuser, nonsmoker. Denies any substance abuse. MEDICATIONS: The patient was on multiple medications which is as per reconciliation sheet, which was reviewed and ordered. ALLERGIES: THE PATIENT IS NOT ALLERGIC TO ANY MEDICATIONS. FAMILY HISTORY: Noncontributory. PHYSICAL EXAMINATION: GENERAL: A well built, well nourished, overweight male in no acute distress. VITAL SIGNS: Temperature afebrile, pulse 80, respirations 18, blood pressure 140/80. HEENT EXAM: Pupils reacting to light. No JVD. No thyromegaly. No lymphadenopathy. No nystagmus. Normocephalic and atraumatic skull. HEART EXAM: S1 and S2. Normal and regular. No significant murmur, gallop or rub is heard. LUNGS: Shows good bilateral air exchange. No rales or rhonchi. ABDOMEN: Soft and nontender. No organomegaly. No fluid. Bowel sounds are plus and normal. EXTREMITY EXAM: No edema. No calf swelling. No tenderness. No acute ischemia. RACECAR DRIVER: Exam is essentially unchanged and there is no sign of any acute gross focal motor, sensory, or neurological deficit. There is no sign of apparent withdrawal. DIAGNOSTIC DATA: Available diagnostic data reviewed. Telemetry monitoring did not reveal significant arrhythmias. The patient's alcohol level was 400+. ADMITTING IMPRESSION: Drug overdose, alcohol overdose, alcohol intoxication, alcohol abuse questionable to . Plan as ordered. Case and plan was discussed with the patient. The patient remains on one-to-one observation. Leonel Campbell MD [facility] # [id number]
--- NOTE | 2017-12-26 16:05 | US ---
Date of service: 12/26/2017 HISTORY: diffuse abdominal pain COMPARISON: None. TECHNIQUE: Sonographic evaluation of the abdomen. FINDINGS: LIVER: Measures 17.5 cm. There is diffuse increased echogenicity of the liver parenchyma. No mass. No intrahepatic bile duct dilatation. GALLBLADDER: There is a solitary 8 mm mobile gallstone. No wall thickening or pericholecystic fluid. The sonographic Dolan's sign is negative. COMMON BILE DUCT: Measures 3.7 mm. No stones. No dilatation. PANCREAS: Unremarkable as visualized. No mass. No ductal dilatation. RIGHT KIDNEY: Measures 11.7cm. Normal echogenicity. No calculus, mass, or hydronephrosis. LEFT KIDNEY: Measures 11.7cm. Normal echogenicity. No calculus, mass, or hydronephrosis. SPLEEN: Normal in size and contour. No mass. AORTA: No aneurysmal dilatation. IVC: Unremarkable. OTHER FINDINGS: None. IMPRESSION: Solitary small mobile gallstones. No evidence for cholecystitis. Mild hepatomegaly. Diffuse increased echogenicity in the liver may reflect hepatic steatosis however parenchymal infectious/ inflammatory etiologies cannot be entirely excluded. Clinical and laboratory correlation is advised.
[2017-12-27 05:31] VITALS: O2SAT 98
[2017-12-27] MEDS: Pantoprazole 40 mg EC Tab PO SCH (08:28)
[2017-12-27] MEDS: Enoxaparin 40 mg Syringe SC SCH (08:28)
--- NOTE | 2017-12-27 09:55 | CP.PCM.PN ---
Subjective - Date & Time of Evaluation Date of Evaluation: 12/27/17 Time of Evaluation: 09:54 - Subjective Subjective: Patient seen and examined this morning at bedside with Dr Campbell Patient reports feeling better, denies abdominal pain at this time, no nausea, vomiting, diarrhea or constipation Afebrile, VSS Objective - Vital Signs/Intake and Output Vital Signs (last 24 hours): Temp Pulse Resp BP Pulse Ox 98.0 F 57 L 20 131/80 98 12/27/17 08:13 12/27/17 08:13 12/27/17 08:13 12/27/17 08:13 12/27/17 08:13 - Medications Medications: Current Medications Acetaminophen (Tylenol 325mg Tab) 650 mg PO Q6 PRN PRN Reason: Pain, moderate (4-7) Last Admin: 12/27/17 09:43 Dose: 650 mg Dicyclomine HCl (Bentyl) 10 mg PO QID [facility] Last Admin: 12/27/17 08:28 Dose: 10 mg Enoxaparin Sodium (Lovenox) 40 mg SC DAILY [facility]; Protocol Last Admin: 12/27/17 08:28 Dose: 40 mg Folic Acid (Folic Acid) 1 mg PO DAILY [facility] Last Admin: 12/27/17 08:28 Dose: 1 mg Ketorolac Tromethamine (Toradol) 15 mg IVP Q8 PRN PRN Reason: Pain, moderate (4-7) Last Admin: 12/27/17 06:41 Dose: 15 mg Lorazepam (Ativan) 0.5 mg PO Q6 PRN PRN Reason: Agitation Last Admin: 12/27/17 03:52 Dose: 0.5 mg Pantoprazole Sodium (Protonix Ec Tab) 40 mg PO DAILY [facility] Last Admin: 12/27/17 08:28 Dose: 40 mg Thiamine HCl (Vitamin B1 Tab) 100 mg PO DAILY [facility] Last Admin: 12/27/17 08:28 Dose: 100 mg - Labs Labs: 12/26/17 04:50 12/26/17 04:50 - Constitutional Appears: No Acute Distress - Head Exam Head Exam: NORMAL INSPECTION - Respiratory Exam Respiratory Exam: Clear to Ausculation Bilateral - Cardiovascular Exam Cardiovascular Exam: REGULAR RHYTHM. absent: Tachycardia - GI/Abdominal Exam GI & Abdominal Exam: Soft, Normal Bowel Sounds. absent: Distended, Tenderness - Extremities Exam Extremities Exam: absent: Calf Tenderness - Neurological Exam Neurological Exam: Alert, Awake, Oriented x3 - Psychiatric Exam Psychiatric exam: Normal Affect - Skin Skin Exam: Dry, Warm Assessment and Plan - Assessment and Plan (Free Text) Assessment: 42 yo male w/ h/o alcohol abuse, admitted s/p possible intentional overdose, a cutely intoxicated on admission, now refusing psychiatric treatment and medications. Plan: - Abd US negative for acute cholecystitis, increased liver echogenecity, no BD dilatation - patient medically stable - Waiting screen for involuntary psychiatric admission - Continue 1:1 for safety - rest of plan as ordered
--- NOTE | 2017-12-27 13:57 | CP.PCM.PCO ---
Assessment/Plan - Assessment/Plan Assessment (Free Text): Patient seen and examined. Discussed with [facility] [facility] Screener, patient not a candidate for their commitment unit. Patient cleared by Dr Cao for dc today Patient for dc home, discussed with Dr Campbell. - Problems Patient Problems: Problem List (Active/Current) Problem Status Onset Code Alcohol intoxication Acute F10.929 Sedative or hypnotic overdose Acute T42.71XA Suicide attempt Acute T14.91XA
--- NOTE | 2017-12-27 14:04 | CP.PCM.PCO ---
Physician Communication Note - Physician Communication Note Physician Communication Note: Patient screened for involuntary admission and found to not meet criteria.
[2017-12-27 16:04] VITALS: BP 118/80; PULSE 55; RESP 17; TEMP 98
--- NOTE | 2017-12-27 16:10 | CP.PCM.DIS ---
Provider - Provider Date of Admission: 12/24/17 19:34 Attending physician: Leonel Campbell MD Time Spent in preparation of Discharge (in minutes): 35 Diagnosis - Discharge Diagnosis (1) Medication overdose Status: Acute (2) Alcohol intoxication Status: Acute Priority: High (3) Abdominal pain Status: Acute Hospital Course - Lab Results Lab Results: Most Recent Lab Values WBC 7.3 K/uL (4.8-10.8) 12/26/17 04:50 RBC 4.26 Mil/uL (4.40-5.90) L 12/26/17 04:50 Hgb 14.9 g/dL (12.0-18.0) 12/26/17 04:50 Hct 41.6 % (35.0-51.0) 12/26/17 04:50 MCV 97.6 fl (80.0-94.0) H 12/26/17 04:50 MCH 35.0 pg (27.0-31.0) H 12/26/17 04:50 MCHC 35.9 g/dL (33.0-37.0) 12/26/17 04:50 RDW 13.1 % (11.5-14.5) 12/26/17 04:50 Plt Count 157 K/uL (130-400) 12/26/17 04:50 MPV 8.1 fl (7.2-11.7) 12/24/17 16:03 Neut % (Auto) 58.1 % (50.0-75.0) 12/24/17 16:03 Lymph % (Auto) 33.6 % (20.0-40.0) 12/24/17 16:03 Edmunds % (Auto) 7.2 % (0.0-10.0) 12/24/17 16:03 Eos % (Auto) 0.9 % (0.0-4.0) 12/24/17 16:03 Baso % (Auto) 0.2 % (0.0-2.0) 12/24/17 16:03 Neut # (Auto) 8.9 K/uL (1.8-7.0) H 12/24/17 16:03 Lymph # (Auto) 5.1 K/uL (1.0-4.3) H 12/24/17 16:03 Edmunds # (Auto) 1.1 K/uL (0.0-0.8) H 12/24/17 16:03 Eos # (Auto) 0.1 K/uL (0.0-0.7) 12/24/17 16:03 Baso # (Auto) 0.0 K/uL (0.0-0.2) 12/24/17 16:03 pO2 45 mm/Hg (30-55) 12/24/17 16:09 VBG pH 7.40 (7.32-7.43) 12/24/17 16:09 VBG pCO2 44 mmHg (40-60) 12/24/17 16:09 VBG HCO3 26.0 mmol/L 12/24/17 16:09 VBG Total CO2 28.7 mmol/L (22-28) H 12/24/17 16:09 VBG O2 Sat (Calc) 83.4 % (40-65) H 12/24/17 16:09 VBG Base Excess 2.0 mmol/L (0.0-2.0) 12/24/17 16:09 VBG Potassium 3.8 mmol/L (3.6-5.2) 12/24/17 16:09 Sodium 147.0 mmol/L (132-148) 12/24/17 16:09 Chloride 108.0 mmol/L (98-107) H 12/24/17 16:09 Glucose 137 mg/dL (75-110) H 12/24/17 16:09 Lactate 3.2 mmol/L (0.7-2.1) H 12/24/17 16:09 FiO2 21.0 % 12/24/17 16:09 Sodium 141 mmol/l (132-148) 12/26/17 04:50 Potassium 3.7 MMOL/L (3.6-5.0) 12/26/17 04:50 Chloride 107 mmol/L (98-107) 12/26/17 04:50 Carbon Dioxide 26 mmol/L (22-30) 12/26/17 04:50 Anion Gap 12 (10-20) 12/26/17 04:50 BUN 5 mg/dl (9-20) L 12/26/17 04:50 Creatinine 0.6 mg/dl (0.8-1.5) L 12/26/17 04:50 Est GFR ( Amer) > 60 12/26/17 04:50 Est GFR (Non-Af Amer) > 60 12/26/17 04:50 Random Glucose 96 mg/dL (75-110) 12/26/17 04:50 Calcium 8.8 mg/dL (8.4-10.2) 12/26/17 04:50 Phosphorus 3.9 mg/dl (2.5-4.5) 12/26/17 04:50 Magnesium 1.5 MG/DL (1.6-2.3) L 12/26/17 04:50 Total Bilirubin 2.0 mg/dl (0.2-1.3) H 12/26/17 04:50 AST 89 U/L (17-59) H 12/26/17 04:50 ALT 88 U/L (21-72) H 12/26/17 04:50 Alkaline Phosphatase 93 U/L (38-126) 12/26/17 04:50 Ammonia 26 umo/L (16-60) 12/24/17 16:08 Lactate Dehydrogenase 660 U/L (313-618) H 12/24/17 16:03 Total Protein 7.9 G/DL (6.3-8.2) 12/26/17 04:50 Albumin 4.1 g/dL (3.5-5.0) 12/26/17 04:50 Globulin 3.8 gm/dL (2.2-3.9) 12/26/17 04:50 Albumin/Globulin Ratio 1.1 (1.0-2.1) 12/26/17 04:50 Lipase 31 U/L (23-300) 12/24/17 16:03 Venous Blood Potassium 3.8 mmol/L (3.6-5.2) 12/24/17 16:09 Salicylates < 1.0 mg/dl 12/24/17 16:03 Urine Opiates Screen Negative (NEGATIVE) 12/24/17 18:44 Urine Methadone Screen Negative (NEGATIVE) 12/24/17 18:44 Acetaminophen < 10.0 ug/ml (10.0-30.0) L 12/24/17 16:03 Ur Barbiturates Screen Negative (NEGATIVE) 12/24/17 18:44 Ur Phencyclidine Scrn Negative (NEGATIVE) 10/15/18 18:44 Ur Amphetamines Screen Negative (NEGATIVE) 12/24/17 18:44 U Benzodiazepines Scrn Negative (NEGATIVE) 12/24/17 18:44 U Oth Cocaine Metabols Negative (NEGATIVE) 12/24/17 18:44 U Cannabinoids Screen Negative (NEGATIVE) 12/24/17 18:44 Alcohol, Quantitative 413 mg/dl (0-10) H* 12/24/17 16:03 - Hospital Course Hospital Course: 42 y/o male with a PMHx of alcoholism, pancreatitis and HTN admitted after possible overdose of ambien. Patient reported to the brother and father that he wanted to kill himself. Psych was consulted on admission and pt denies any suicidal/homicidal ideation or attempt. Patient refused voluntary inpatient psychiatric admission, patient screened for involuntary admission and found to not meet criteria. Patient cleared by Dr Cao for discharge to home. Discharge Exam - Head Exam Head Exam: NORMAL INSPECTION - Additional Findings Additional findings: See PE in progress note Discharge Plan - Discharge Medications Prescriptions: Dicyclomine [Bentyl] 10 mg PO QID #28 cap Folic Acid 1 mg PO DAILY #30 tab Pantoprazole [Protonix EC Tab] 40 mg PO DAILY #30 ect Thiamine [Vitamin B1 Tab] 100 mg PO DAILY #30 tab - Follow Up Plan Condition: GUARDED Disposition: HOME/ ROUTINE Instructions: Alcohol Abuse and Alcoholism (DC), Polysubstance Abuse (DC) Additional Instructions: follow up with pmd in 1 week Referrals: Leonel Campbell MD [Staff Provider] - Mayra Zamora MD [Medical Doctor] - Coral Cao MD [Medical Doctor] -
== END 2017-12-27 17:27 | disposition home or self-care (01) | DRG 751 ==
LOC: H.ER 15:12 → H.ERHOLD 19:34 → H.TEL 21:40
PROVIDERS: ADMIT Internal Medicine; ATTEND Internal Medicine
DX: F10.229 Alcohol dependence with intoxication, unspecified (principal); T42.6X2A Poisoning by other antiepileptic and sedative-hypnotic drugs, intentional self-harm, initial encounter; Y90.8 Blood alcohol level of 240 mg/100 ml or more; D72.829 Elevated white blood cell count, unspecified; I10 Essential (primary) hypertension; J45.909 Unspecified asthma, uncomplicated; F41.9 Anxiety disorder, unspecified; Z91.5 Personal history of self-harm; Z78.1 Physical restraint status; F17.210 Nicotine dependence, cigarettes, uncomplicated; Z91.013 Allergy to seafood; Y92.89 Other specified places as the place of occurrence of the external cause

== ENCOUNTER 2018-02-20 13:14 | Emergency (ER) | payer MEDICAID ==
[2018-02-20 13:15] VITALS: BMI 37.1
--- NOTE | 2018-02-20 14:16 | ED PDOC ---
HPI: Psych/Substance Abuse Time Seen by Provider: 02/20/18 13:38 Chief Complaint (Nursing): Abdominal Pain Chief Complaint (Provider): Psych/Alcohol/OD History Per: Patient Onset/Duration Of Symptoms: Hrs Current Symptoms Are (Timing): Still Present Suicide/Self Injury Attempted (Context): None Modifying Factor(s): Alcohol, Other (Possile Substance Abuse) Additional Complaint(s): 42 y/o male with a PMHx of HTN, pancreatitis and alcoholism presents to the ED for evaluation of abdominal pain. As per triage, patient has been experiencing upper abdominal pain since early this morning. On arrival to the patient's home, EMS found patient to be drinking alcohol. Patient reports he drinks alcohol every day and is here today to "try to sober up". Patient states his last drink was today but cannot recall the exact time. Patient reports he was waiting about 30 days to go back to [facility] but is unable to go back at this time. Patient states he "just needs to detox". PMD: Mayra Zamora Past Medical History Reviewed: Historical Data, Nursing Documentation, Vital Signs Vital Signs: Last Vital Signs Temp 98.9 F 02/20/18 13:25 Pulse Resp 18 02/20/18 13:25 BP 154/103 H 02/20/18 13:25 Pulse Ox 93 L 02/20/18 13:25 - Medical History PMH: Anxiety, Arthritis (as per CT results), Asthma (pt reports hx. Asthna, no meds), Fractures (L shoulder Fx), HTN, Pancreatitis Denies: COPD, HIV, Chronic Kidney Disease - Surgical History Surgical History: No Surg Hx - Family History Family History: States: Hypertension - Social History Alcohol: > 2 Drinks/Day - Immunization History Hx Tetanus Toxoid Vaccination: (unk) Hx Influenza Vaccination: (unk) Hx Pneumococcal Vaccination: (unk) - Home Medications Home Medications: Ambulatory Orders Medication Instructions Recorded Dicyclomine [Bentyl] 10 mg PO QID #28 cap 12/27/17 Folic Acid 1 mg PO DAILY #30 tab 12/27/17 Pantoprazole [Protonix EC Tab] 40 mg PO DAILY #30 ect 12/27/17 Thiamine [Vitamin B1 Tab] 100 mg PO DAILY #30 tab 12/27/17 - Allergies Allergies/Adverse Reactions: Allergies Allergy/AdvReac Type Severity Reaction Status Date / Time magnesium Allergy Mild RASH Verified 02/20/18 13:25 cat dander Allergy RASH Verified 02/20/18 13:25 shrimp Allergy RASH Verified 02/20/18 13:25 liquid tylenol Allergy RASH Uncoded 12/24/17 15:19 Review of Systems ROS Statement: Except As Marked, All Systems Reviewed And Found Negative Gastrointestinal: Positive for: Abdominal Pain Psych: Positive for: Other (EtOH intoxication) Physical Exam - Reviewed Nursing Documentation Reviewed: Yes Vital Signs Reviewed: Yes - Physical Exam Appears: Positive for: No Acute Distress Head Exam: Positive for: ATRAUMATIC, NORMOCEPHALIC Skin: Positive for: Normal Color, Warm, Dry Neck: Positive for: Normal, Painless ROM Cardiovascular/Chest: Negative for: Bradycardia, Tachycardia Respiratory: Negative for: Accessory Muscle Use, Respiratory Distress Extremity: Negative for: Deformity Neurologic/Psych: Positive for: Alert, Oriented (Patient is coherent but stuttering and slow to get words out. ) - Laboratory Results Result Diagrams: 02/20/18 16:50 02/20/18 16:13 - ECG O2 Sat by Pulse Oximetry: 93 (RA) Pulse Ox Interpretation: Normal Medical Decision Making Medical Decision Making: Time: 141 Plan: -- Acetaminophen -- Alcohol Serum -- CMP -- Urine Drug Screen -- Salicylate -- CBC with Differentials -- Urinalysis Time: 151 -- 1:1 Observation -- Ativan 1 mg IVP -- Patient agitated and thus put on 1:1 observation and given 1 mg IVP of Ativan. Time: 1530 --Zofran 4mg IV --1L NS IVB -- Patient vomiting and retching at this time. Will give IV fluids and Zofran for symptomatic relief. Time: 171 CT RESULTS FINDINGS: Examination limited by motion artifact. There is limited evaluation of the solid organs without the administration of IV contrast. LOWER THORAX: No visible consolidation, pleural effusion, or pneumothorax. LIVER: Severe diffuse hypoattenuation of the liver consistent with hepatic steatosis. Hepatomegaly. GALLBLADDER AND BILE DUCTS: Gallstone within the gallbladder. PANCREAS: Fatty atrophy of the pancreas. SPLEEN: Unremarkable unenhanced appearance. ADRENALS: Unremarkable unenhanced appearance. KIDNEYS AND URETERS: Possible [id number]-left perinephric stranding however evaluation limited due to motion at this level. No hydronephrosis or obstructing renal calculus. BLADDER: Under distended urinary bladder appears otherwise grossly unremarkable. REPRODUCTIVE: Unremarkable. APPENDIX: The appendix appears within normal limits of caliber. No secondary signs of acute appendicitis. BOWEL: The stomach is nondistended. Lack of oral contrast limits evaluation for bowel pathology. The bowel loops appear within normal limits of caliber without evidence of intestinal obstruction. Diverticulosis without CT evidence of acute diverticulitis. PERITONEUM: No significant free fluid. No definite free air. LYMPH NODES: 12 mm gastrohepatic lymph node. VASCULATURE: No atherosclerotic calcification of the aorta appreciated. No aortic aneurysm. BONES: Mild degenerative changes. OTHER FINDINGS: None. IMPRESSION: Examination limited due to motion with questionable right greater than left perinephric stranding versus artifact. Diverticulosis without CT evidence of acute diverticulitis. Severe diffuse hepatic steatosis. Hepatomegaly. 12 mm gastrohepatic lymph node. Probable gallstone within the gallbladder. Diverticulosis without definite CT evidence of acute diverticulitis. Additional findings as above. Time: 1755 -- Labs demonstrate elevated LFTs. On re-evaluation, patient is vomiting in the ED and complaining of abdominal pain. Patient to be admitted for further evaluation. Time: 1806 -- Lipase -- CXR Portable Time: 1900 -- Patient endorsed to Dr. Siddiqui, pending crisis evaluation and detox. -- Labs demonstrate normal lipase. On re-evaluation, patient stopped vomiting and appears comfortable. Scribe Attestation: Documented by Shanell Hamilton and Sunil Rodriguez, acting as scribes for Lb Toth MD. Provider Scribe Attestation: All medical record entries made by the Scribe were at my direction and personally dictated by me. I have reviewed the chart and agree that the record accurately reflects my personal performance of the history, physical exam, medical decision making, and the department course for this patient. I have also personally directed, reviewed, and agree with the discharge instructions and disposition. Disposition - Patient ED Disposition Is Patient to be Admitted: Transfer of Care - Disposition Disposition: Transfer of Care Disposition Time: 19:00 Forms: [employer] ([place]) Patient Signed Over To: Diego Siddiqui Handoff Comments: pending crisis evaluation and detox
[2018-02-20 15:29] LABS: SALICYLATE < 1.0 mg/dl
[2018-02-20 15:36] LABS: ACETAMINOPHEN < 10.0 ug/ml (10.0-30.0)
[2018-02-20] MEDS ORDERED: Sodium Chloride 0.9% 1,000 ML IV STA ×2 (15:40→18:43)
[2018-02-20 16:35] LABS: ALB/GLOB RATIO 1.1 (1.0-2.1); ALBUMIN 4.8 g/dL (3.5-5.0); ALT/SGPT 170 U/L (21-72); AST/SGOT 368 U/L (17-59); BLOOD UREA NITROGEN 5 mg/dl (9-20); CALCIUM 9.1 mg/dL (8.4-10.2); GFR NON-AFRICAN AMERICAN > 60
[2018-02-20 17:09] LABS: BASO # 0.1 K/uL (0.0-0.2); BASO % 1.1 % (0.0-2.0); EOS # 0.1 K/uL (0.0-0.7); EOS % 0.8 % (0.0-4.0); HEMOGLOBIN 15.8 g/dL (12.0-18.0); LYMPH # 4.6 K/uL (1.0-4.3); MEAN CELL VOLUME 99.8 fl (80.0-94.0); MEAN CORPUSCULAR HEMOGLOBIN 34.3 pg (27.0-31.0); MEAN CORPUSCULAR HGB CONC 34.4 g/dL (33.0-37.0); MEAN PLATELET VOLUME 9.4 fl (7.2-11.7); MONO # 1.1 K/uL (0.0-0.8); MONO % 7.6 % (0.0-10.0); NEUT # 8.1 K/uL (1.8-7.0); NEUT % 57.5 % (50.0-75.0); NRBC % 0.1 % (0.0-0.0); RBC 4.6 Mil/uL (4.40-5.90); RED CELL DISTRIBUTION WIDTH 14.4 % (11.5-14.5)
[2018-02-20 17:14] LABS: BARBITURATES, UR NEGATIVE (NEGATIVE); BENZODIAZEPINES, UR POSITIVE (NEGATIVE); OPIATES, UR NEGATIVE (NEGATIVE); PHENCYCLIDINE, UR NEGATIVE (NEGATIVE)
--- NOTE | 2018-02-20 17:23 | CT ---
PROCEDURE: CT Abdomen and Pelvis without Oral or IV contrast. HISTORY: abd pain COMPARISON: Abdominal ultrasound performed 12/26/17; CT abdomen and pelvis without contrast performed 10/08/17 TECHNIQUE: Contiguous axial images of the abdomen and pelvis. No oral or IV contrast administered. Coronal and Sagittal reformats generated and reviewed. Radiation dose: Total exam DLP = 975.86 mGy-cm. This CT exam was performed using one or more of the following dose reduction techniques: Automated exposure control, adjustment of the mA and/or kV according to patient size, and/or use of iterative reconstruction technique. FINDINGS: Examination limited by motion artifact. There is limited evaluation of the solid organs without the administration of IV contrast. LOWER THORAX: No visible consolidation, pleural effusion, or pneumothorax. LIVER: Severe diffuse hypoattenuation of the liver consistent with hepatic steatosis. Hepatomegaly. GALLBLADDER AND BILE DUCTS: Gallstone within the gallbladder. PANCREAS: Fatty atrophy of the pancreas. SPLEEN: Unremarkable unenhanced appearance. ADRENALS: Unremarkable unenhanced appearance. KIDNEYS AND URETERS: Possible vhaze-[id number]-wfgt-left perinephric stranding however evaluation limited due to motion at this level. No hydronephrosis or obstructing renal calculus. BLADDER: Under distended urinary bladder appears otherwise grossly unremarkable. REPRODUCTIVE: Unremarkable. APPENDIX: The appendix appears within normal limits of caliber. No secondary signs of acute appendicitis. BOWEL: The stomach is nondistended. Lack of oral contrast limits evaluation for bowel pathology. The bowel loops appear within normal limits of caliber without evidence of intestinal obstruction. Diverticulosis without CT evidence of acute diverticulitis. PERITONEUM: No significant free fluid. No definite free air. LYMPH NODES: 12 mm gastrohepatic lymph node. VASCULATURE: No atherosclerotic calcification of the aorta appreciated. No aortic aneurysm. BONES: Mild degenerative changes. OTHER FINDINGS: None. IMPRESSION: Examination limited due to motion with questionable right greater than left perinephric stranding versus artifact. Diverticulosis without CT evidence of acute diverticulitis. Severe diffuse hepatic steatosis. Hepatomegaly. 12 mm gastrohepatic lymph node. Probable gallstone within the gallbladder. Diverticulosis without definite CT evidence of acute diverticulitis. Additional findings as above.
[2018-02-20 18:11] LABS: URINE BILIRUBIN NEGATIVE (NEGATIVE); URINE BLOOD NEGATIVE (NEGATIVE); URINE CLARITY CLEAR (Clear); URINE COLOR YELLOW (YELLOW); URINE GLUCOSE (UA) NEG (NEGATIVE); URINE LEUKOCYTE ESTERASE NEG Leu/uL (Negative); URINE PROTEIN 30 mg/dL (NEGATIVE); URINE UROBILINOGEN 0.2-1.0 mg/dL (0.2-1.0)
--- NOTE | 2018-02-20 19:27 | ED PDOC ---
- Laboratory Results Result Diagrams: 02/20/18 16:50 02/20/18 16:13 - ECG O2 Sat by Pulse Oximetry: 93 (RA) Pulse Ox Interpretation: Normal Medical Decision Making Medical Decision Making: Time: 1899 -- Patient endorsed to me by Dr. Toth, pending sobriety, crisis evaluation and re-evaluation. [id number] Patient evaluated by crisis, found stable for discharge. Scribe Attestation: Documented by Shanell Hamilton, acting as a scribe for Diego Siddiqui MD. Provider Scribe Attestation: All medical record entries made by the Scribe were at my direction and personally dictated by me. I have reviewed the chart and agree that the record accurately reflects my personal performance of the history, physical exam, medical decision making, and the department course for this patient. I have also personally directed, reviewed, and agree with the discharge instructions and disposition. Disposition - Clinical Impression Clinical Impression: Alcohol intoxication - POA Present On Arrival: None - Disposition Disposition: Routine/Home Disposition Time: 04:07 Condition: STABLE Prescriptions: chlordiazePOXIDE [Chlordiazepoxide HCl] 25 mg PO Q6 PRN #10 cap PRN Reason: Anxiety Instructions: Alcohol Abuse and Alcoholism (DC) Forms: [employer] ([place] [place])
[2018-02-21] MEDS ORDERED: Sodium Chloride 0.9% 1,000 ML IV STA (01:16)
[2018-02-21 05:01] VITALS: BP 135/87; PULSE 100; RESP 19; TEMP 98.8
[2018-02-21 06:48] VITALS: O2SAT 93
--- NOTE | 2018-02-21 08:44 | RAD ---
Date of service: 02/20/2018 HISTORY: vomiting COMPARISON: Frontal chest radiograph 12/24/2017. FINDINGS: LUNGS: No active pulmonary disease. Improved pulmonary volumes noted bilaterally. PLEURA: No significant pleural effusion identified, no pneumothorax apparent. CARDIOVASCULAR: No aortic atherosclerotic calcification present. Normal cardiac size. No pulmonary vascular congestion. OSSEOUS STRUCTURES: No significant abnormalities. VISUALIZED UPPER ABDOMEN: Normal. OTHER FINDINGS: None. IMPRESSION: No interval acute cardiopulmonary disease appreciated.
== END 2018-02-21 05:19 | disposition home or self-care (01) ==
LOC: H.ER 13:14
DX: F10.229 Alcohol dependence with intoxication, unspecified (principal); R11.0 Nausea; R94.5 Abnormal results of liver function studies
CPT/HCPCS: 71045; 74176; 80053; 80320; 80324; 80329; 80345; 80346; 80349; 80353; 80358; 80361; 81003; 83690; 83992; 85025; 96361; 96372; 96374; 96375; 96376; 99285; J2060; J2405; J3230; J7030